=== PATIENT | male | born 1985 | race Caucasian/White ===

== ENCOUNTER 2022-11-21 17:39 | Emergency (ER) | payer OTHER, SELFPAY ==
--- NOTE | ~2022-11-21 | CT_ITS ---
EXAMINATION: CTA CHEST. CT BRAIN WITHOUT IV CONTRAST. CLINICAL INFORMATION: Seizure with trauma. Hypoxia. COMPARISON: None TECHNIQUE: 5 minutes thin axial and reformatted 3 mm thin sagittal coronal and 8 mm oblique images of chest were obtained following rapid IV 75 mL Omnipaque 350. Noncontrast 5 mm thin axial and reformatted 2 mm thin sagittal and coronal images of brain were obtained without contrast. DLP 1349. This CT examination was performed using dose optimization technique as appropriate, variously including the following: Automated exposure control Adjustment of MA and/or KV according to patient size(this includes techniques or standardized protocols for targeted exams where dose is matched to indication/reason for exam; extremities or head. Use of iterative reconstruction techniques. FINDINGS: Brain: There is no acute intra-axial, extra-axial bleed, masses or midline shift. There is no acute infarction in evolution. There is no edema. There is a hypodense 6 mm linear lesion subcutaneous tentorial left posterior fossa measuring -68 Hounsfield units likely lipoma. The lateral ventricles are symmetrical but enlarged. Bone windows reveal no calvarial abnormality. There is no scalp hematoma. Bilateral paranasal sinuses are well-aerated. CTA CHEST: There is good opacity preop tree and its branches without any intraluminal filling defect or narrowing. The thoracic aorta is of normal caliber. No aneurysm or dissection seen. NON -CTA CHEST: The lungs are well-expanded with bilateral lower lobe posterior basal and superior segment atelectasis. Rest of lungs are clear. There is no pleural effusion, thickening or calcification. The axilla and the chest wall is unremarkable. Imaging through the upper abdomen reveals unremarkable liver, spleen, pancreas, gallbladder and bilateral adrenal glands. Bone windows reveal a no aggressive lytic or sclerotic process. CT/CT head/brain wo IV con IMPRESSION: No acute intracranial process seen. 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 No evidence of PE. No evidence aortic dissection or aneurysm. Bilateral lower lobe atelectatic changes.
--- NOTE | ~2022-11-21 | XR_ITS ---
EXAMINATION: XR CHEST CLINICAL INFORMATION: Seizure COMPARISON: None TECHNIQUE: Frontal view of the chest was obtained. FINDINGS: Significantly limited exam secondary to patient positioning. The cardiomediastinal silhouette is accentuated secondary to significantly decreased lung volumes. There are hazy opacities in the right midlung. No pleural effusions. XR/XR chest 1V IMPRESSION: 1. Significantly limited exam secondary to patient positioning and diminished lung volumes. 2. Hazy opacities in the right midlung may be atelectasis.
--- NOTE | ~2022-11-21 | CT_ITS ---
EXAMINATION: CTA CHEST. CT BRAIN WITHOUT IV CONTRAST. CLINICAL INFORMATION: Seizure with trauma. Hypoxia. COMPARISON: None TECHNIQUE: 5 minutes thin axial and reformatted 3 mm thin sagittal coronal and 8 mm oblique images of chest were obtained following rapid IV 75 mL Omnipaque 350. Noncontrast 5 mm thin axial and reformatted 2 mm thin sagittal and coronal images of brain were obtained without contrast. DLP 1349. This CT examination was performed using dose optimization technique as appropriate, variously including the following: Automated exposure control Adjustment of MA and/or KV according to patient size(this includes techniques or standardized protocols for targeted exams where dose is matched to indication/reason for exam; extremities or head. Use of iterative reconstruction techniques. FINDINGS: Brain: There is no acute intra-axial, extra-axial bleed, masses or midline shift. There is no acute infarction in evolution. There is no edema. There is a hypodense 6 mm linear lesion subcutaneous tentorial left posterior fossa measuring -68 Hounsfield units likely lipoma. The lateral ventricles are symmetrical but enlarged. Bone windows reveal no calvarial abnormality. There is no scalp hematoma. Bilateral paranasal sinuses are well-aerated. CTA CHEST: There is good opacity preop tree and its branches without any intraluminal filling defect or narrowing. The thoracic aorta is of normal caliber. No aneurysm or dissection seen. NON -CTA CHEST: The lungs are well-expanded with bilateral lower lobe posterior basal and superior segment atelectasis. Rest of lungs are clear. There is no pleural effusion, thickening or calcification. The axilla and the chest wall is unremarkable. Imaging through the upper abdomen reveals unremarkable liver, spleen, pancreas, gallbladder and bilateral adrenal glands. Bone windows reveal a no aggressive lytic or sclerotic process. CT/CT angio chest PE protocol IMPRESSION: No acute intracranial process seen. 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 No evidence of PE. No evidence aortic dissection or aneurysm. Bilateral lower lobe atelectatic changes.
[2022-11-21 17:56] VITALS: PULSE 117; O2SAT 95
--- NOTE | 2022-11-21 18:07 | ED.GENADULT ---
HPI - General Adult General Chief complaint: Seizure Stated complaint: seizure Time Seen by Provider: 11/21/22 17:59 Source: RN notes reviewed Limitations: altered mental status History of Present Illness HPI narrative: Patient sent in from [facility] detox facility secondary to multiple seizures. No further history available at this time. For EMS he apparently had 2 more seizure-like episodes. He you was there for alcohol detox. And it is unknown if he has a history of alcohol abstinence seizures or other seizure disorder. He was uncooperative for EMS. Here continues to be uncooperative but unintelligible. Related Data Allergies Allergy/AdvReac Type Severity Reaction Status Date / Time No Known Allergies Allergy Verified 11/21/22 18:06 Review of Systems Review of Systems: Unable PMFSH Social History Social History Alcohol intake: current Alcohol intake frequency: 3 or more drinks per day Alcohol type: beer Smoked in Last 30 Days: Yes Use of substances other than those prescribed or required for medical reasons: No Advance Directives: No Advance Directives Information Provided: Yes Physical Exam ED Vital Signs: Vital Signs - 24 hr 11/21/22 18:38 Temperature 98.2 F Pulse Rate 108 H Respiratory Rate 18 Blood Pressure 116/63 Pulse Oximetry 80 L Oxygen Delivery Method Room Air BMI result Body Mass Index 32.0 Const Other: Patient is awake but does not speak intelligibly. He does not follow commands. He withdraws from pain and is able to localize pain. No obvious traumatic injury HENMT Other: Normocephalic atraumatic Eyes Other: Pupils equal round reactive to light approximately 6 mm. Resp Other: Clear and equal bilaterally. No wheezes rales or rhonchi. Oxygen saturation in the 90s Cardio Other: Regular rate and rhythm without murmurs rubs or gallops GI Other: Soft. Nondistended. Skin Other: Warm pink and dry without rash Neuro Other: Patient is unable to comply with neuro exam but is moving all 4 extremities apparently equally Extrem Other: No obvious extremity injuries Medications Administered Discontinued Medications Generic Name Dose Route Start Last Admin Trade Name Freq PRN Reason Stop Dose Admin Acetaminophen 650 mg 11/22/22 00:51 11/22/22 01:03 Acetaminophen 325 Mg Tablet PO 11/22/22 00:52 650 mg ONCE ONE Administration Sodium Chloride 3,300 mls @ 3,300 mls/hr 11/21/22 20:05 11/21/22 22:00 Ns 30 ml/kg infuse over 1 hr (3300 ml) 11/21/22 21:04 Infused IV Infusion .Q1H STA Insulin Glargine 20 unit 11/22/22 01:41 11/22/22 01:50 Insulin Glargine,Hum.Rec.Anlog 100 Unit/Ml 10 Ml Vial SUBCUT 11/22/22 01:42 20 unit ONCE ONE Administration Insulin Human Lispro 10 unit 11/22/22 01:41 11/22/22 01:49 Insulin Lispro 100 Unit/Ml 3 Ml Vial SUBCUT 11/22/22 01:42 10 unit ONCE ONE Administration Insulin Human Regular 5 unit 11/21/22 20:08 11/21/22 20:46 Insulin Regular, Human 100 Unit/Ml 3 Ml Vial IVPUSH 11/21/22 20:09 5 unit ONCE ONE Administration Iohexol 100 ml 11/21/22 21:25 11/21/22 21:26 Iohexol 350 Mg/Ml 100 Ml Infus..Btl IV 11/21/22 21:26 75 ml ONCE ONE Administration Lorazepam 2 mg 11/21/22 18:06 11/21/22 18:31 Lorazepam 2 Mg/Ml Vial IM 11/21/22 18:07 2 mg STAT STA Administration Lorazepam 2 mg 11/22/22 00:51 11/22/22 01:04 Lorazepam 1 Mg Tablet PO 11/22/22 00:52 2 mg ONCE ONE Administration Lorazepam 2 mg 11/22/22 06:35 11/22/22 06:45 Lorazepam 1 Mg Tablet PO 11/22/22 06:36 2 mg ONCE ONE Administration Lorazepam 2 mg 11/22/22 10:42 11/22/22 10:47 Lorazepam 1 Mg Tablet PO 11/22/22 10:43 2 mg ONCE ONE Administration Medical Decision Making Medical Decision Making MDM Narrative: Patient with altered mental status following apparent seizure-like activity while in alcohol detox. Likely is postictal secondary to alcohol abstinence seizures. He is hemodynamically stable. Rule out electrolyte imbalance. Rule out intracranial hemorrhage. He will need to be sedated as he is restless and likely will not stay still for the CT scan. 20:06. Patient has been maintaining sats in the mid 90s. Workup shows EKG without acute findings Chest x-ray with possible atelectasis although very difficult to interpret secondary to body habitus and posterior. Lab work is significant for significantly elevated glucose over 400. His lactic acid is over 4. This is likely secondary to seizing. I do not see any evidence of infection such as fever at this time to suggest that this is sepsis. Will treat with IV fluids and continue to look for other metabolic abnormalities. 22:23. Patient is now resting apparently comfortably. He does wake up to voice stimuli briefly. His repeat lactic acid is improved down to 2.5. CT scan of the head is unremarkable as is the CT of his abdomen and pelvis. He is maintaining his oxygen saturation in the mid 90s At this point will continue to observe. Lab Data 11/21/22 19:04 11/21/22 19:04 Labs: Lab Results 11/21/22 11/21/22 11/21/22 Range/Units 19:04 19:04 19:04 WBC 9.8 (4.8-10.8) X10*3/uL RBC 5.40 (4.60-5.80) X10*6/uL Hgb 14.4 (14.0-18.0) g/dl Hct 43.8 (42.0-52.0) % MCV 81.1 (80.0-98.0) fL MCH 26.7 L (27.0-33.0) pg MCHC 32.9 (31.0-36.0) g/dl RDW 14.0 (11.0-16.0) % Plt Count 278 (160-400) X10*3/uL MPV 10.3 (9.4-12.4) fL Immature Gran % (Auto) 0.1 (0.0-0.4) % Neut % (Auto) 51.7 (45-73) % Lymph % (Auto) 42.0 H (20-40) % [place] % (Auto) 5.4 (2-11) % Eos % (Auto) 0.2 (0-4) % Baso % (Auto) 0.6 (0-2) % Lymph # (Auto) 4.1 (1.2-4.9) X10*3/uL [place] # (Auto) 0.5 (0.1-1.2) X10*3/uL Eos # (Auto) 0.0 (0.0-0.4) X10*3/uL Baso # (Auto) 0.1 (0.0-0.2) X10*3/uL Abs Immat Gran (auto) 0.01 (0.00-0.03) X10*3/uL Absolute Neuts (auto) 5.0 (2.0-8.3) x10*3/uL Absolute Nucleated RBC 0.000 (0.0-0.012) X10*3/uL Nucleated RBC % (auto) 0.0 (0.0-0.2) /100WBC PT (10.0-13.1) SEC INR (0.9-1.1) Sodium 139 (135-145) mmol/L Potassium 4.0 (3.3-5.1) mmol/L Chloride 101 (96-108) mmol/L Carbon Dioxide 21 L (22-29) mmol/L Anion Gap 21 H (12-20) BUN 9 (9-16) mg/dL Creatinine 1.05 (0.5-1.4) mg/dL Estim Creat Clear Calc 127.6 Estimated GFR > 60 POC Glucose (60-115) mg/dL Random Glucose 481 H* (60-115) mg/dL Lactic Acid (0.5-2.0) mmol/L Lactic Acid F/U @ 2Hr (0.5-2.0) mmol/L Lactic Acid F/U @ 4Hr (0.5-2.0) mmol/L Calcium 8.8 8.8 (8.4-10.2) mg/dL Phosphorus 3.8 (2.7-4.5) mg/dL Magnesium (1.6-2.6) mg/dL Total Bilirubin 0.2 (0.0-1.0) mg/dL AST 32 (5-37) U/L ALT 33 (0-40) U/L Alkaline Phosphatase 167 H (39-117) U/L Ammonia (13-55) umol/L Troponin I High Sens (<3.5-35.0) ng/L Total Protein 7.0 (6.5-8.0) g/dL Albumin 4.0 (3.5-5.0) g/dL Lipase 23 (8-78) U/L Beta-Hydroxybutyrate/Acetoacetate TSH (0.32-4.0) uIU/mL Urine Opiates Screen (Not Detect) Urine Fentanyl Screen (Not Detect) Ur Barbiturates Screen (Not Detect) Ur Phencyclidine Scrn (Not Detect) Ur Amphetamines Screen (Not Detect) U Benzodiazepines Scrn (Not Detect) Urine Cocaine Screen (Not Detect) U Marijuana (THC) Screen (Not Detect) Ethyl Alcohol mg/dL Influenza Type A (PCR) (Negative) Influenza Type B (PCR) (Negative) RSV RNA Qual (PCR) (Negative) SARS-CoV-2 RNA (RT-PCR) (Negative) 11/21/22 11/21/22 11/21/22 Range/Units 19:04 19:04 19:04 WBC (4.8-10.8) X10*3/uL RBC (4.60-5.80) X10*6/uL Hgb (14.0-18.0) g/dl Hct (42.0-52.0) % MCV (80.0-98.0) fL MCH (27.0-33.0) pg MCHC (31.0-36.0) g/dl RDW (11.0-16.0) % Plt Count (160-400) X10*3/uL MPV (9.4-12.4) fL Immature Gran % (Auto) (0.0-0.4) % Neut % (Auto) (45-73) % Lymph % (Auto) (20-40) % [place] % (Auto) (2-11) % Eos % (Auto) (0-4) % Baso % (Auto) (0-2) % Lymph # (Auto) (1.2-4.9) X10*3/uL [place] # (Auto) (0.1-1.2) X10*3/uL Eos # (Auto) (0.0-0.4) X10*3/uL Baso # (Auto) (0.0-0.2) X10*3/uL Abs Immat Gran (auto) (0.00-0.03) X10*3/uL Absolute Neuts (auto) (2.0-8.3) x10*3/uL Absolute Nucleated RBC (0.0-0.012) X10*3/uL Nucleated RBC % (auto) (0.0-0.2) /100WBC PT 11.1 (10.0-13.1) SEC INR 1.0 (0.9-1.1) Sodium (135-145) mmol/L Potassium (3.3-5.1) mmol/L Chloride (96-108) mmol/L Carbon Dioxide (22-29) mmol/L Anion Gap (12-20) BUN (9-16) mg/dL Creatinine (0.5-1.4) mg/dL Estim Creat Clear Calc Estimated GFR POC Glucose (60-115) mg/dL Random Glucose (60-115) mg/dL Lactic Acid 4.3 H* (0.5-2.0) mmol/L Lactic Acid F/U @ 2Hr (0.5-2.0) mmol/L Lactic Acid F/U @ 4Hr (0.5-2.0) mmol/L Calcium (8.4-10.2) mg/dL Phosphorus (2.7-4.5) mg/dL Magnesium (1.6-2.6) mg/dL Total Bilirubin (0.0-1.0) mg/dL AST (5-37) U/L ALT (0-40) U/L Alkaline Phosphatase (39-117) U/L Ammonia (13-55) umol/L Troponin I High Sens < 3.5 (<3.5-35.0) ng/L Total Protein (6.5-8.0) g/dL Albumin (3.5-5.0) g/dL Lipase (8-78) U/L Beta-Hydroxybutyrate/Acetoacetate TSH (0.32-4.0) uIU/mL Urine Opiates Screen (Not Detect) Urine Fentanyl Screen (Not Detect) Ur Barbiturates Screen (Not Detect) Ur Phencyclidine Scrn (Not Detect) Ur Amphetamines Screen (Not Detect) U Benzodiazepines Scrn (Not Detect) Urine Cocaine Screen (Not Detect) U Marijuana (THC) Screen (Not Detect) Ethyl Alcohol mg/dL Influenza Type A (PCR) (Negative) Influenza Type B (PCR) (Negative) RSV RNA Qual (PCR) (Negative) SARS-CoV-2 RNA (RT-PCR) (Negative) 01/25/23 01/25/23 01/25/23 Range/Units 19:04 19:04 19:04 WBC (4.8-10.8) X10*3/uL RBC (4.60-5.80) X10*6/uL Hgb (14.0-18.0) g/dl Hct (42.0-52.0) % MCV (80.0-98.0) fL MCH (27.0-33.0) pg MCHC (31.0-36.0) g/dl RDW (11.0-16.0) % Plt Count (160-400) X10*3/uL MPV (9.4-12.4) fL Immature Gran % (Auto) (0.0-0.4) % Neut % (Auto) (45-73) % Lymph % (Auto) (20-40) % [place] % (Auto) (2-11) % Eos % (Auto) (0-4) % Baso % (Auto) (0-2) % Lymph # (Auto) (1.2-4.9) X10*3/uL [place] # (Auto) (0.1-1.2) X10*3/uL Eos # (Auto) (0.0-0.4) X10*3/uL Baso # (Auto) (0.0-0.2) X10*3/uL Abs Immat Gran (auto) (0.00-0.03) X10*3/uL Absolute Neuts (auto) (2.0-8.3) x10*3/uL Absolute Nucleated RBC (0.0-0.012) X10*3/uL Nucleated RBC % (auto) (0.0-0.2) /100WBC PT (10.0-13.1) SEC INR (0.9-1.1) Sodium (135-145) mmol/L Potassium (3.3-5.1) mmol/L Chloride (96-108) mmol/L Carbon Dioxide (22-29) mmol/L Anion Gap (12-20) BUN (9-16) mg/dL Creatinine (0.5-1.4) mg/dL Estim Creat Clear Calc Estimated GFR POC Glucose (60-115) mg/dL Random Glucose (60-115) mg/dL Lactic Acid (0.5-2.0) mmol/L Lactic Acid F/U @ 2Hr (0.5-2.0) mmol/L Lactic Acid F/U @ 4Hr (0.5-2.0) mmol/L Calcium (8.4-10.2) mg/dL Phosphorus (2.7-4.5) mg/dL Magnesium (1.6-2.6) mg/dL Total Bilirubin (0.0-1.0) mg/dL AST (5-37) U/L ALT (0-40) U/L Alkaline Phosphatase (39-117) U/L Ammonia (13-55) umol/L Troponin I High Sens (<3.5-35.0) ng/L Total Protein (6.5-8.0) g/dL Albumin (3.5-5.0) g/dL Lipase (8-78) U/L Beta-Hydroxybutyrate/Acetoacetate Cancelled 0.31 H TSH (0.32-4.0) uIU/mL Urine Opiates Screen (Not Detect) Urine Fentanyl Screen (Not Detect) Ur Barbiturates Screen (Not Detect) Ur Phencyclidine Scrn (Not Detect) Ur Amphetamines Screen (Not Detect) U Benzodiazepines Scrn (Not Detect) Urine Cocaine Screen (Not Detect) U Marijuana (THC) Screen (Not Detect) Ethyl Alcohol 320 H* mg/dL Influenza Type A (PCR) NEGATIVE (Negative) Influenza Type B (PCR) NEGATIVE (Negative) RSV RNA Qual (PCR) NEGATIVE (Negative) SARS-CoV-2 RNA (RT-PCR) NEGATIVE (Negative) 11/21/22 11/21/22 11/21/22 Range/Units 19:05 19:05 21:54 WBC (4.8-10.8) X10*3/uL RBC (4.60-5.80) X10*6/uL Hgb (14.0-18.0) g/dl Hct (42.0-52.0) % MCV (80.0-98.0) fL MCH (27.0-33.0) pg MCHC (31.0-36.0) g/dl RDW (11.0-16.0) % Plt Count (160-400) X10*3/uL MPV (9.4-12.4) fL Immature Gran % (Auto) (0.0-0.4) % Neut % (Auto) (45-73) % Lymph % (Auto) (20-40) % [place] % (Auto) (2-11) % Eos % (Auto) (0-4) % Baso % (Auto) (0-2) % Lymph # (Auto) (1.2-4.9) X10*3/uL [place] # (Auto) (0.1-1.2) X10*3/uL Eos # (Auto) (0.0-0.4) X10*3/uL Baso # (Auto) (0.0-0.2) X10*3/uL Abs Immat Gran (auto) (0.00-0.03) X10*3/uL Absolute Neuts (auto) (2.0-8.3) x10*3/uL Absolute Nucleated RBC (0.0-0.012) X10*3/uL Nucleated RBC % (auto) (0.0-0.2) /100WBC PT (10.0-13.1) SEC INR (0.9-1.1) Sodium (135-145) mmol/L Potassium (3.3-5.1) mmol/L Chloride (96-108) mmol/L Carbon Dioxide (22-29) mmol/L Anion Gap (12-20) BUN (9-16) mg/dL Creatinine (0.5-1.4) mg/dL Estim Creat Clear Calc Estimated GFR POC Glucose (60-115) mg/dL Random Glucose (60-115) mg/dL Lactic Acid (0.5-2.0) mmol/L Lactic Acid F/U @ 2Hr 2.5 H* (0.5-2.0) mmol/L Lactic Acid F/U @ 4Hr (0.5-2.0) mmol/L Calcium (8.4-10.2) mg/dL Phosphorus (2.7-4.5) mg/dL Magnesium 2.0 (1.6-2.6) mg/dL Total Bilirubin (0.0-1.0) mg/dL AST (5-37) U/L ALT (0-40) U/L Alkaline Phosphatase (39-117) U/L Ammonia 51 (13-55) umol/L Troponin I High Sens (<3.5-35.0) ng/L Total Protein (6.5-8.0) g/dL Albumin (3.5-5.0) g/dL Lipase (8-78) U/L Beta-Hydroxybutyrate/Acetoacetate TSH 0.34 (0.32-4.0) uIU/mL Urine Opiates Screen (Not Detect) Urine Fentanyl Screen (Not Detect) Ur Barbiturates Screen (Not Detect) Ur Phencyclidine Scrn (Not Detect) Ur Amphetamines Screen (Not Detect) U Benzodiazepines Scrn (Not Detect) Urine Cocaine Screen (Not Detect) U Marijuana (THC) Screen (Not Detect) Ethyl Alcohol mg/dL Influenza Type A (PCR) (Negative) Influenza Type B (PCR) (Negative) RSV RNA Qual (PCR) (Negative) SARS-CoV-2 RNA (RT-PCR) (Negative) 11/21/22 11/22/22 11/22/22 Range/Units 22:36 00:00 00:00 WBC (4.8-10.8) X10*3/uL RBC (4.60-5.80) X10*6/uL Hgb (14.0-18.0) g/dl Hct (42.0-52.0) % MCV (80.0-98.0) fL MCH (27.0-33.0) pg MCHC (31.0-36.0) g/dl RDW (11.0-16.0) % Plt Count (160-400) X10*3/uL MPV (9.4-12.4) fL Immature Gran % (Auto) (0.0-0.4) % Neut % (Auto) (45-73) % Lymph % (Auto) (20-40) % [place] % (Auto) (2-11) % Eos % (Auto) (0-4) % Baso % (Auto) (0-2) % Lymph # (Auto) (1.2-4.9) X10*3/uL [place] # (Auto) (0.1-1.2) X10*3/uL Eos # (Auto) (0.0-0.4) X10*3/uL Baso # (Auto) (0.0-0.2) X10*3/uL Abs Immat Gran (auto) (0.00-0.03) X10*3/uL Absolute Neuts (auto) (2.0-8.3) x10*3/uL Absolute Nucleated RBC (0.0-0.012) X10*3/uL Nucleated RBC % (auto) (0.0-0.2) /100WBC PT (10.0-13.1) SEC INR (0.9-1.1) Sodium (135-145) mmol/L Potassium (3.3-5.1) mmol/L Chloride (96-108) mmol/L Carbon Dioxide (22-29) mmol/L Anion Gap (12-20) BUN (9-16) mg/dL Creatinine (0.5-1.4) mg/dL Estim Creat Clear Calc Estimated GFR POC Glucose 290 H (60-115) mg/dL Random Glucose (60-115) mg/dL Lactic Acid (0.5-2.0) mmol/L Lactic Acid F/U @ 2Hr (0.5-2.0) mmol/L Lactic Acid F/U @ 4Hr 1.8 (0.5-2.0) mmol/L Calcium (8.4-10.2) mg/dL Phosphorus (2.7-4.5) mg/dL Magnesium (1.6-2.6) mg/dL Total Bilirubin (0.0-1.0) mg/dL AST (5-37) U/L ALT (0-40) U/L Alkaline Phosphatase (39-117) U/L Ammonia (13-55) umol/L Troponin I High Sens (<3.5-35.0) ng/L Total Protein (6.5-8.0) g/dL Albumin (3.5-5.0) g/dL Lipase (8-78) U/L Beta-Hydroxybutyrate/Acetoacetate TSH (0.32-4.0) uIU/mL Urine Opiates Screen Not Detected (Not Detect) Urine Fentanyl Screen Not Detected (Not Detect) Ur Barbiturates Screen Not Detected (Not Detect) Ur Phencyclidine Scrn Not Detected (Not Detect) Ur Amphetamines Screen Not Detected (Not Detect) U Benzodiazepines Scrn POSITIVE H (Not Detect) Urine Cocaine Screen Not Detected (Not Detect) U Marijuana (THC) Screen Not Detected (Not Detect) Ethyl Alcohol mg/dL Influenza Type A (PCR) (Negative) Influenza Type B (PCR) (Negative) RSV RNA Qual (PCR) (Negative) SARS-CoV-2 RNA (RT-PCR) (Negative) 11/22/22 11/22/22 Range/Units 01:34 06:34 WBC (4.8-10.8) X10*3/uL RBC (4.60-5.80) X10*6/uL Hgb (14.0-18.0) g/dl Hct (42.0-52.0) % MCV (80.0-98.0) fL MCH (27.0-33.0) pg MCHC (31.0-36.0) g/dl RDW (11.0-16.0) % Plt Count (160-400) X10*3/uL MPV (9.4-12.4) fL Immature Gran % (Auto) (0.0-0.4) % Neut % (Auto) (45-73) % Lymph % (Auto) (20-40) % [place] % (Auto) (2-11) % Eos % (Auto) (0-4) % Baso % (Auto) (0-2) % Lymph # (Auto) (1.2-4.9) X10*3/uL [place] # (Auto) (0.1-1.2) X10*3/uL Eos # (Auto) (0.0-0.4) X10*3/uL Baso # (Auto) (0.0-0.2) X10*3/uL Abs Immat Gran (auto) (0.00-0.03) X10*3/uL Absolute Neuts (auto) (2.0-8.3) x10*3/uL Absolute Nucleated RBC (0.0-0.012) X10*3/uL Nucleated RBC % (auto) (0.0-0.2) /100WBC PT (10.0-13.1) SEC INR (0.9-1.1) Sodium (135-145) mmol/L Potassium (3.3-5.1) mmol/L Chloride (96-108) mmol/L Carbon Dioxide (22-29) mmol/L Anion Gap (12-20) BUN (9-16) mg/dL Creatinine (0.5-1.4) mg/dL Estim Creat Clear Calc Estimated GFR POC Glucose 348 H 189 H (60-115) mg/dL Random Glucose (60-115) mg/dL Lactic Acid (0.5-2.0) mmol/L Lactic Acid F/U @ 2Hr (0.5-2.0) mmol/L Lactic Acid F/U @ 4Hr (0.5-2.0) mmol/L Calcium (8.4-10.2) mg/dL Phosphorus (2.7-4.5) mg/dL Magnesium (1.6-2.6) mg/dL Total Bilirubin (0.0-1.0) mg/dL AST (5-37) U/L ALT (0-40) U/L Alkaline Phosphatase (39-117) U/L Ammonia (13-55) umol/L Troponin I High Sens (<3.5-35.0) ng/L Total Protein (6.5-8.0) g/dL Albumin (3.5-5.0) g/dL Lipase (8-78) U/L Beta-Hydroxybutyrate/Acetoacetate TSH (0.32-4.0) uIU/mL Urine Opiates Screen (Not Detect) Urine Fentanyl Screen (Not Detect) Ur Barbiturates Screen (Not Detect) Ur Phencyclidine Scrn (Not Detect) Ur Amphetamines Screen (Not Detect) U Benzodiazepines Scrn (Not Detect) Urine Cocaine Screen (Not Detect) U Marijuana (THC) Screen (Not Detect) Ethyl Alcohol mg/dL Influenza Type A (PCR) (Negative) Influenza Type B (PCR) (Negative) RSV RNA Qual (PCR) (Negative) SARS-CoV-2 RNA (RT-PCR) (Negative) Discharge Plan Discharge Clinical Impression: Alcohol withdrawal seizure Patient Disposition: Xfer LTC Transfer Details: patient with alcohol withdrawal seizure history of same in past medically cleared, advised to continue monitoring and medication for alcohol withdrawal Interventions: ED Discharge Assessment Last Done: 11/22/22 11:52 Discharge Date/Time: 11/22/22 11:53
--- NOTE | 2022-11-21 18:27 | ECG_ITS ---
Test Reason : SIEZURE Blood Pressure : / mmHG Vent. Rate : 111 BPM Atrial Rate : 111 BPM P-R Int : 152 ms QRS Dur : 094 ms QT Int : 338 ms P-R-T Axes : 041 -08 014 degrees QTc Int : 459 ms Sinus tachycardia Minimal voltage criteria for LVH, may be normal variant ( R in aVL ) Septal infarct , age undetermined Abnormal ECG No previous ECGs available Referred By: Kelvin Gaspar Electronically Signed By:JORGITO FAGAN
[2022-11-21] MEDS: LORazepam 2 MG/ML VIAL IM (18:31)
[2022-11-21 18:38] VITALS: BP 116/63; PULSE 108; RESP 18; TEMP 36.8; O2SAT 80; BMI 32.0
[2022-11-21 19:04] VITALS: O2SAT 94
--- NOTE | 2022-11-21 19:09 | PC.NURSE ---
This senior grant writer assumed care of this PT at 1900. PT sleeping postictal. Sat O2 94% on oxymask. Seizure precautions maintained. PT arousable to touch.
[2022-11-21 19:12] LABS: MANUAL DIFF FLAG NO
[2022-11-21 19:14] LABS: Basophils Absolute Auto 0.1 X10*3/uL (0.0-0.2); Basophils Percent Auto 0.6 % (0-2); Eosinophils Percent Auto 0.2 % (0-4); Hematocrit 43.8 % (42.0-52.0); Hemoglobin 14.4 g/dl (14.0-18.0); Imm Gran Abs Auto 0.01 X10*3/uL (0.00-0.03); Imm Gran Pct Auto 0.1 % (0.0-0.4); Lymphocytes Absolute Auto 4.1 X10*3/uL (1.2-4.9); Mean Corpuscular HGB Conc 32.9 g/dl (31.0-36.0); Mean Corpuscular Hemoglobin 26.7 pg (27.0-33.0); Mean Corpuscular Volume 81.1 fL (80.0-98.0); Mean Platelet Volume 10.3 fL (9.4-12.4); Monocytes Absolute Auto 0.5 X10*3/uL (0.1-1.2); Monocytes Percent Auto 5.4 % (2-11); Neutrophils Percent Auto 51.7 % (45-73); Platelet Count 278 X10*3/uL (160-400); White Blood Count 9.8 X10*3/uL (4.8-10.8)
[2022-11-21 19:24] LABS: Ammonia 51 umol/L (13-55)
[2022-11-21 19:29] LABS: Prothrombin Time 11.1 SEC (10.0-13.1)
[2022-11-21 19:30] LABS: Calcium 8.8 mg/dL (8.4-10.2); Lipase 23 U/L (8-78)
[2022-11-21 19:36] LABS: Lactic Acid 4.3 mmol/L (0.5-2.0)
[2022-11-21 19:37] LABS: Alanine Aminotransferase 33 U/L (0-40); Alkaline Phosphatase 167 U/L (39-117); Anion Gap 21 (12-20); Aspartate Amino Transferase 32 U/L (5-37); Bilirubin Total 0.2 mg/dL (0.0-1.0); Blood Urea Nitrogen 9 mg/dL (9-16); Calcium 8.8 mg/dL (8.4-10.2); Carbon Dioxide 21 mmol/L (22-29); Chloride 101 mmol/L (96-108); Creatinine Clr Calc Pharmacy 127.6; Estimated Glomerular Filt Rate > 60; Glucose Random 481 mg/dL (60-115); Phosphorus 3.8 mg/dL (2.7-4.5); Sodium 139 mmol/L (135-145)
[2022-11-21 19:53] LABS: Influenza A PCR NEGATIVE (Negative); Influenza B PCR NEGATIVE (Negative); Resp Syncy Virus RNA Qual PCR NEGATIVE (Negative); SARS COV2 PCR INHOUSE NEGATIVE (Negative)
[2022-11-21 19:54] LABS: TSH reflex Free T4 0.34 uIU/mL (0.32-4.0)
[2022-11-21 19:57] LABS: Troponin-I High Sensitivity < 3.5 ng/L (<3.5-35.0)
[2022-11-21 20:24] LABS: Ethanol 320 mg/dL
[2022-11-21] MEDS: Insulin Regular, Human 100 UNIT/ML 3 ML VIAL IVPUSH (20:46)
[2022-11-21 21:10] LABS: Reflex Lactate? Lactic Acid Added
[2022-11-21] MEDS: iohexoL 350 MG/ML 100 ML INFUS..BTL IV (21:26)
[2022-11-21 22:21] LABS: ~Lactic Acid-LAB USE ONLY 2.5 mmol/L (0.5-2.0)
[2022-11-21 22:40] LABS: Glucose, Whole Blood 290 mg/dL (60-115)
[2022-11-21 23:48] VITALS: BP 124/73; PULSE 118; RESP 14; TEMP 36.5; O2SAT 99
[2022-11-21 23:56] LABS: Reflex Lactate? 2 Y
[2022-11-22 00:21] LABS: Amphetamine Screen Urine Not Detected (Not Detect); Barbiturates, Urine Not Detected (Not Detect); Benzodiazepines Screen Urine POSITIVE (Not Detect); Cannabinoid Screen Urine Not Detected (Not Detect); Cocaine Screen Urine Not Detected (Not Detect); Fentanyl, urine Not Detected (Not Detect); Opiate Screen Urine Not Detected (Not Detect); Phencyclidine Screen Urine Not Detected (Not Detect); ~Lactic Acid-LAB USE ONLY 1.8 mmol/L (0.5-2.0)
[2022-11-22] MEDS: Acetaminophen 325 MG TABLET 650 MG PO (01:03)
[2022-11-22] MEDS: LORazepam 1 MG TABLET 2 MG PO ×3 (01:04→10:47)
--- NOTE | 2022-11-22 01:17 | PC.NURSE ---
PT more awake requesting pain medication for a 10/10 headache and lower ABD pain non radiating. Provider notified. Meds given as documented. Called [facility] for bed update, person stated we don't do intakes at night call back in the after 8am . Provider notified and PT updated. PT asking for sleep meds, provider notified and stated we just gave Ativan . No new orders.
[2022-11-22 01:27] VITALS: BP 115/76; PULSE 88; RESP 20; O2SAT 93
[2022-11-22 01:40] LABS: Glucose, Whole Blood 348 mg/dL (60-115)
--- NOTE | 2022-11-22 01:43 | PC.NURSE ---
Pt reports increase thirst. POC 348. Provider notified. New orders, meds given as documented.
[2022-11-22] MEDS: Insulin Lispro 100 UNIT/ML 3 ML VIAL 10 UNIT SUBCUT (01:49)
[2022-11-22] MEDS: Insulin Glargine,Hum.rec.anlog 100 UNIT/ML 10 ML VIAL 20 UNIT SUBCUT (01:50)
--- NOTE | 2022-11-22 03:20 | PC.NURSE ---
PT on room air, sleeping O2 sat 80's. Provider notified. Respiratory therapy notified. Placed on cpap.
[2022-11-22 04:00] VITALS: BP 116/79; PULSE 91; RESP 19; TEMP 36.6; O2SAT 94
[2022-11-22 04:48] VITALS: PULSE 97; RESP 21; O2SAT 92
[2022-11-22 05:55] VITALS: BP 134/85; PULSE 108; RESP 19; TEMP 36.8; O2SAT 97
[2022-11-22 06:38] LABS: Glucose, Whole Blood 189 mg/dL (60-115)
--- NOTE | 2022-11-22 06:46 | PC.NURSE ---
PT states I feel like im withdrawing , PT reports headache, hand tremors felt. Provider notified. New order given as documented. Will CTM.
[2022-11-22 07:02] VITALS: BP 135/94; PULSE 89; RESP 11; O2SAT 95
--- NOTE | 2022-11-22 08:43 | PC.NURSE ---
patient with alcohol withdrawal seizure history of same in past medically cleared, advised to continue monitoring and medication for alcohol withdrawal
[2022-11-22 09:55] VITALS: BP 133/97; PULSE 92; RESP 12; O2SAT 97
[2022-11-29 19:09] LABS: Beta-Hydroxybutyrate 0.31 mmol/L
== END 2022-11-22 11:53 ==
PROVIDERS: Emergency Provider Emergency Medicine
DX: G40.89 Other seizures (principal); F10.239 Alcohol dependence with withdrawal, unspecified; T51.0X1A Toxic effect of ethanol, accidental (unintentional), initial encounter; F10.220 Alcohol dependence with intoxication, uncomplicated; Y90.8 Blood alcohol level of 240 mg/100 ml or more; Z20.822 Contact with and (suspected) exposure to COVID-19; Z20.828 Contact with and (suspected) exposure to other viral communicable diseases; Z79.899 Other long term (current) drug therapy
CPT/HCPCS: 0241U; 36415; 70450; 71045; 71275; 80053; 80307; 82010; 82077; 82140; 82310; 82947; 83605; 83690; 83735; 84100; 84443; 84484; 85025; 85610; 87040; 93005; 96361; 96372; 96374; 99285; J2060; Q9967

== ENCOUNTER 2024-07-02 19:56 | Inpatient (IN) | payer OTHER, SELFPAY ==
[2024-07-02 20:54] VITALS: BMI 35.0
[2024-07-02 22:00] VITALS: BP 136/88; PULSE 102; RESP 18; TEMP 36.7; O2SAT 98
[2024-07-02] MEDS: OLANZapine 5 MG TABLET PO (22:09)
[2024-07-02] MEDS: hydrOXYzine HCL 25 MG TABLET PO (22:09)
[2024-07-02] MEDS: traZODone HCL 50 MG TABLET PO (22:10)
[2024-07-02] MEDS: diazePAM 5 MG TABLET PO (22:10)
[2024-07-02] MEDS: Thiamine HCL 100 MG TABLET PO (22:10)
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
[2024-07-03 06:39] VITALS: BP 133/92; PULSE 105; RESP 18; TEMP 36.6; O2SAT 98
[2024-07-03] MEDS: diazePAM 5 MG TABLET PO (06:41)
[2024-07-03 08:00] VITALS: BP 133/88; PULSE 87; RESP 16; TEMP 36.7; O2SAT 98
[2024-07-03 08:00] LABS: Estimated Average Glucose 315 mg/dL; Hemoglobin A1c % 12.6 % (<6.0)
[2024-07-03] MEDS: hydrOXYzine HCL 25 MG TABLET PO (08:18)
[2024-07-03] MEDS: diazePAM 5 MG TABLET 10 MG PO ×2 (08:19→22:04)
[2024-07-03 08:53] LABS: Alanine Aminotransferase 65 U/L (0-40); Albumin Level 4.1 g/dL (3.5-5.0); Alkaline Phosphatase 122 U/L (39-117); Anion Gap 13 (12-20); Aspartate Amino Transferase 35 U/L (5-37); Bilirubin Total 0.3 mg/dL (0.0-1.0); Blood Urea Nitrogen 8 mg/dL (9-16); Calcium 9.6 mg/dL (8.4-10.2); Carbon Dioxide 24 mmol/L (22-29); Chloride 101 mmol/L (96-108); Cholesterol 210 mg/dL (<200); Creatinine Clr Calc Pharmacy 154.9; Estimated Glomerular Filt Rate > 60; Glucose Fasting 350 mg/dL (60-99); HDL Cholesterol 46 mg/dL (>40); LDL Cholesterol Calculated 136 mg/dL (<100); Potassium 4.4 mmol/L (3.3-5.1); Sodium 134 mmol/L (135-145); Total Protein 7.4 g/dL (6.5-8.0); Triglycerides 141 mg/dL (<150)
[2024-07-03 09:06] LABS: Folate 12.4 ng/mL (> or = 4.0); Vitamin B12 777 pg/mL (200-900)
[2024-07-03] MEDS: Insulin Lispro 100 UNIT/ML 3 ML VIAL SUBCUT ×4 (09:48→22:07)
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
[2024-07-03] MEDS: Amoxicillin 500 MG CAPSULE PO ×2 (12:06→18:00)
[2024-07-03] MEDS: Gabapentin 600 MG TABLET PO ×3 (12:06→22:03)
[2024-07-03] MEDS: QUEtiapine Fumarate 200 MG TABLET PO (12:06)
[2024-07-03] MEDS: FLUoxetine HCl 20 MG CAPSULE 60 MG PO (12:07)
[2024-07-03] MEDS: Famotidine 20 MG TABLET PO ×2 (12:07→22:04)
[2024-07-03] MEDS: Thiamine HCL 100 MG TABLET PO (12:07)
[2024-07-03] MEDS: ARIPiprazole 10 MG TABLET PO (12:08)
[2024-07-03 12:09] VITALS: BP 128/84
[2024-07-03] MEDS: cloNIDine HCL 0.2 MG TABLET PO ×2 (12:09→22:03)
[2024-07-03] MEDS: Nicotine 21 MG PATCH.TD24 TRANSDERMA (12:17)
[2024-07-03 12:40] LABS: Glucose, Whole Blood 212 mg/dL (60-115)
[2024-07-03] MEDS: Omeprazole 20 MG CAPSULE.DR PO (15:53)
[2024-07-03] MEDS: metFORMIN HCl ER 500 MG TAB.ER.24H 1000 MG PO (15:53)
[2024-07-03] MEDS: Acamprosate Calcium 333 MG TABLET.DR 666 MG PO ×2 (15:53→22:03)
[2024-07-03 17:18] LABS: Glucose, Whole Blood 416 mg/dL (60-115)
--- NOTE | 2024-07-03 17:31 | HO.PM.IMCN ---
History of Present Illness Data of Consult Service Date: 07/03/24 Primary Care Provider: Unknown Physician HPI Reason for consult: Admission H&P Pt is a 40-year-old male with a PMH significant for?insulin-dependent type 2 diabetes, seizure disorder, alcohol use disorder with history of withdrawal with seizures, and GERD who is admitted to [facility] psychiatry unit for increasing depression and SI. Patient was initially brought into [facility] for seizure-like activity due to either medication noncompliance or alcohol withdrawal. EMS witnessed 2 seizures, and patient was postictal upon arrival to the ED.. Medical consult for admission H&P. ?Patient reports that he feels ?good and ?relaxed? at time of interview and exam. States last drink was on June 28, but denies any significant amount of drinking or even daily drinking. Denies auditory or visual hallucinations. No increase in anxiety. Denies headache, nausea, vomiting. No tactile disturbances. Denies tremors. Patient has no acute medical complaints. Denies fever, chills, abdominal pain. No chest pain/pressure, palpitations. Denies shortness of breath or difficulty breathing. Review of Systems Review of Systems: Patient reports feeling ?relaxed? Denies any acute medical complaints at this time [facility] Medical History Recurrent major depression PTSD (post-traumatic stress disorder) Alcohol use disorder, severe, dependence Diabetes mellitus, type 2 Social History Household Members: Friend(s) Housing: House Do you presently have visiting nurse or other home services: No Alcohol intake: current Alcohol intake frequency: 3 or more drinks per day Alcohol type: beer Patient Tobacco Use Status: Current everyday Tobacco user Smoked in Last 30 Days: Yes e-Cigarette/Vaping Use: Currently Using Frequency of e-Cigarette/Vaping Use: daily Patient Interested in Nicotine Replacement: Yes Patient Given Instructions on How to Stop Smoking: Yes Date Education Initiated: 07/02/24 Second Hand Smoke Exposure: No Use of substances other than those prescribed or required for medical reasons: No Currently Displaying Signs/Symptoms of Drug Intoxication Withdrawal: No Have you been hit, kicked, punched, or otherwise hurt by someone within the past year? If so, by whom?: No Do you feel safe in your current relationship?: No Current Relationship Is there a partner from a previous relationship who is making you feel unsafe now?: No Are you made to feel afraid or neglected: No Advance Directives: No Advance Directives Information Provided: Yes Advance Directives on File: No Do you have thoughts of harming others: None Do you have a plan to hurt others: No Plan Recently lost weight without trying: No How much weight loss: Not applicable Eating poorly because of decreased appetite: No Nutrition screen score: 0 Nutrition Risks: No Nutritional Risk Poor oral hygiene: No Meds Allergies Allergy/AdvReac Type Severity Reaction Status Date / Time No Known Allergies Allergy Verified 11/21/22 18:06 Active Medications: Current Medications Acamprosate (Acamprosate Calcium 333 Mg Tablet.Dr) 666 mg PO TID [facility] Last Admin: 07/03/24 15:53 Dose: 666 mg Acetaminophen (Acetaminophen 325 Mg Tablet) 650 mg PO Q6H PRN PRN Reason: Headache/Pain Mild Scale (1-3) Al Hydroxide/Mg Hydroxide (Magnesium Hydrox/Alum Hydrox 30 Ml Oral.Susp) 30 ml PO Q6H PRN PRN Reason: Heartburn/Nausea Amoxicillin (Amoxicillin 500 Mg Capsule) 500 mg PO Q8H [facility] Stop: 07/10/24 09:00 Last Admin: 07/03/24 12:06 Dose: 500 mg Aripiprazole (Aripiprazole 10 Mg Tablet) 10 mg PO DAILY [facility] Last Admin: 07/03/24 12:08 Dose: 10 mg Clonidine HCl (Clonidine Hcl 0.2 Mg Tablet) 0.2 mg PO BID [facility]; Protocol Last Admin: 07/03/24 12:09 Dose: 0.2 mg Diazepam (Diazepam 5 Mg Tablet) 5 mg PO Q4H PRN PRN Reason: ciwa 7-12 Last Admin: 07/03/24 06:41 Dose: 5 mg Diazepam (Diazepam 5 Mg Tablet) 10 mg PO Q4H PRN PRN Reason: ciwa 13-17 Last Admin: 07/03/24 08:19 Dose: 10 mg Doxepin HCl (Doxepin Hcl 25 Mg Capsule) 75 mg PO BEDTIME [facility] Famotidine (Famotidine 20 Mg Tablet) 20 mg PO BID [facility] Last Admin: 07/03/24 12:07 Dose: 20 mg Fluoxetine HCl (Fluoxetine Hcl 20 Mg Capsule) 60 mg PO DAILY [facility] Last Admin: 07/03/24 12:07 Dose: 60 mg Gabapentin (Gabapentin 600 Mg Tablet) 600 mg PO TID [facility] Last Admin: 07/03/24 15:53 Dose: 600 mg Glucose (Glucose Gel 15 Gm Gel..Gram.) 15 gm PO Q15M PRN; Protocol PRN Reason: per Hypoglycemia Standing Ord. Hydroxyzine HCl (Hydroxyzine Hcl 25 Mg Tablet) 25 mg PO Q6H PRN PRN Reason: Anxiety Last Admin: 07/03/24 08:18 Dose: 25 mg Ibuprofen (Ibuprofen 800 Mg Tablet) 800 mg PO TID PRN PRN Reason: headache Insulin Human Lispro (Insulin Lispro 100 Unit/Ml 3 Ml Vial) 0 unit SUBCUT QIDACHS [facility]; Protocol Last Admin: 07/03/24 12:50 Dose: 4 unit Levetiracetam (Levetiracetam 500 Mg Tablet) 500 mg PO BID [facility] Magnesium Hydroxide (Milk Of Magnesia 30 Ml Oral.Susp) 30 ml PO DAILY PRN PRN Reason: Constipation Melatonin (Melatonin 3 Mg Tablet) 3 mg PO BEDTIME [facility] Metformin HCl (Metformin Hcl Er 500 Mg Tab.Er.24h) 1,000 mg PO BIDWM [facility] Last Admin: 07/03/24 15:53 Dose: 1,000 mg Nicotine (Nicotine 21 Mg Patch.Td24) 21 mg TRANSDERMA DAILY [facility] Last Admin: 07/03/24 12:17 Dose: 21 mg Nicotine Polacrilex (Nicotine Polacrilex 2 Mg Gum) 2 mg BUCCAL Q2H PRN PRN Reason: Nicotine Cravings Olanzapine (Olanzapine 5 Mg Tablet) 5 mg PO Q4H PRN PRN Reason: agitation Last Admin: 07/02/24 22:09 Dose: 5 mg Omeprazole (Omeprazole 20 Mg Capsule.Dr) 20 mg PO BID@0630,1630 [facility] Last Admin: 07/03/24 15:53 Dose: 20 mg Quetiapine Fumarate (Quetiapine Fumarate 200 Mg Tablet) 200 mg PO DAILY [facility] Last Admin: 07/03/24 12:06 Dose: 200 mg Quetiapine Fumarate (Quetiapine Fumarate 400 Mg Tablet) 400 mg PO BEDTIME [facility] Thiamine HCl (Thiamine Hcl 100 Mg Tablet) 100 mg PO DAILY [facility] Last Admin: 07/03/24 12:07 Dose: 100 mg Trazodone HCl (Trazodone Hcl 100 Mg Tablet) 200 mg PO BEDTIME PRN PRN Reason: insomnia Zolpidem Tartrate (Zolpidem Tartrate 5 Mg Tablet) 5 mg PO BEDTIME [facility] Home Medications ?Medication ?Instructions ?Recorded ?Confirmed ?Last Taken ?Type acamprosate 333 mg tablet,delayed 666 mg PO TID 07/02/24 07/02/24 Unknown History release acetaminophen 325 mg tablet 650 mg PO PRN Pain (Scale Score 07/02/24 Unknown History 1-3) amoxicillin 500 mg capsule 500 mg PO Q8H 07/02/24 07/03/24 Unknown History aripiprazole 10 mg tablet 10 mg PO DAILY 07/02/24 07/02/24 Unknown History clonidine HCl 0.2 mg tablet 0.2 mg PO BID 07/02/24 07/02/24 Unknown History doxepin 25 mg capsule 125 mg PO BEDTIME insomnia 07/02/24 07/02/24 Unknown History famotidine 20 mg tablet 20 mg PO BID 07/02/24 07/02/24 Unknown History fluoxetine 20 mg capsule 60 mg PO DAILY depressive disorder 07/02/24 07/02/24 Unknown History gabapentin 600 mg tablet 600 mg PO TID 07/02/24 07/02/24 Unknown History ibuprofen 800 mg tablet 800 mg PO TID 07/02/24 07/02/24 Unknown History insulin glargine 100 unit/mL unit subcut 07/02/24 Unknown History subcutaneous solution (Lantus U-100 Insulin) insulin lispro 100 unit/mL subcut 07/02/24 Unknown History subcutaneous pen levetiracetam 500 mg tablet 500 mg PO BID PRN seizures 07/02/24 07/02/24 Unknown History melatonin 3 mg tablet 3 mg PO BEDTIME insomnia 07/02/24 07/02/24 Unknown History metformin 1,000 mg tablet 1,000 mg PO BID 07/02/24 07/02/24 Unknown History omeprazole 20 mg capsule,delayed 20 mg PO BID 07/02/24 07/02/24 Unknown History release quetiapine 200 mg tablet 200 mg PO DAILY 07/02/24 07/02/24 Unknown History quetiapine 400 mg tablet 400 mg PO BEDTIME 07/02/24 07/02/24 Unknown History thiamine HCl (vitamin B1) 100 mg 100 mg PO DAILY 07/02/24 07/02/24 Unknown History tablet (Vitamin B-1) trazodone 100 mg tablet 200 mg PO BEDTIME PRN insomnia 07/02/24 07/02/24 Unknown History zolpidem 5 mg tablet 5 mg PO BEDTIME 07/02/24 07/02/24 Unknown History Physical Exam Vital Signs and Narrative: Vital Signs: Last Vital Signs Temp 98.1 F 07/03/24 08:00 Pulse 87 07/03/24 08:00 Resp 16 07/03/24 08:00 BP 128/84 07/03/24 12:09 Pulse Ox 98 07/03/24 08:00 O2 Del Method Room Air 07/03/24 08:00 BMI result Body Mass Index 35.0 General: AOx3, no acute distress Resp: CTA bilaterally CVS: S1, S2, RRR GI: +BS, NT, no distention Skin: Warm, dry Neuro: Cranial nerves II-XII grossly intact bilaterally. Motor grossly intact bilaterally. No focal deficits. No tremors. Extremities: No edema Psych: Appropriate affect Results Labs 07/03/24 07:40 Labs: Laboratory Results - last 24 hr 07/03/24 07/03/24 07/03/24 07:40 12:35 17:13 Anion Gap 13 Estim Creat Clear Calc 154.9 Estimated GFR > 60 POC Glucose 212 H 416 H* Fasting Glucose 350 H* Estimat Average Glucose 315 Hemoglobin A1c % 12.6 H Calcium 9.6 D Magnesium 2.0 Total Bilirubin 0.3 AST 35 ALT 65 H Alkaline Phosphatase 122 H Total Protein 7.4 Albumin 4.1 Triglycerides 141 Cholesterol 210 H LDL Cholesterol, Calc 136 H HDL Cholesterol 46 Vitamin B12 777 Folate 12.4 TSH 1.00 Assessment and Plan (1) Medical clearance for psychiatric admission: Status: Acute Plan Pt is a 40-year-old male with a PMH significant for?insulin-dependent type 2 diabetes, seizure disorder, alcohol use disorder with history of withdrawal with seizures, and GERD who is admitted to psychiatry unit for increasing depression and SI. Patient was initially brought into [facility] for seizure-like activity due to either medication noncompliance or alcohol withdrawal. EMS witnessed 2 seizures, and patient was postictal upon arrival to the ED.. Medical consult for admission H&P. Mood disorder Plan as per psychiatry Alcohol use disorder Pt with hx of withdrawal seizures Currently denies withdrawal symptoms Last drink 06/28/2024 Continue diazepam protocol Thiamine, famotidine, multivitamin Seizure disorder Unclear if pt has separate disorder or seizures from alcohol withdrawal Continue Keppra Insulin dependent type 2 diabetes Sliding-scale insulin, Lantus Continue metformin Patient has been advised to adhere to a diabetic diet and diabetic snacking GERD PPI Thank you for allowing us to participate in the care of this patient. Signing off at this time. Please re-consult if any acute complaints or issues arise.
[2024-07-03 20:00] VITALS: BP 126/91; PULSE 123; RESP 18; TEMP 36.7; O2SAT 95
[2024-07-03 20:40] LABS: Glucose, Whole Blood 388 mg/dL (60-115)
[2024-07-03] MEDS: Zolpidem Tartrate 5 MG TABLET PO (22:03)
[2024-07-03] MEDS: QUEtiapine Fumarate 400 MG TABLET PO (22:03)
[2024-07-03] MEDS: levETIRAcetam 500 MG TABLET PO (22:04)
[2024-07-03] MEDS: Melatonin 3 MG TABLET PO (22:04)
[2024-07-03] MEDS: Insulin Glargine,Hum.rec.anlog 100 UNIT/ML 10 ML VIAL 20 UNIT SUBCUT (22:06)
[2024-07-04] MEDS: Amoxicillin 500 MG CAPSULE PO ×4 (03:39→23:07)
[2024-07-04] MEDS: Omeprazole 20 MG CAPSULE.DR PO ×2 (06:45→15:54)
[2024-07-04 07:48] LABS: Glucose, Whole Blood 310 mg/dL (60-115)
[2024-07-04 08:00] VITALS: BP 144/97; PULSE 102; RESP 16; TEMP 36.5; O2SAT 96
[2024-07-04 08:04] LABS: Anion Gap 14 (12-20); Blood Urea Nitrogen 9 mg/dL (9-16); Calcium 9.7 mg/dL (8.4-10.2); Carbon Dioxide 24 mmol/L (22-29); Chloride 100 mmol/L (96-108); Creatinine Clr Calc Pharmacy 156.8; Estimated Glomerular Filt Rate > 60; Glucose Random 296 mg/dL (60-115); Potassium 4.3 mmol/L (3.3-5.1); Sodium 134 mmol/L (135-145)
[2024-07-04] MEDS: Insulin Glargine,Hum.rec.anlog 100 UNIT/ML 10 ML VIAL 50 UNIT SUBCUT (08:20)
[2024-07-04] MEDS: Insulin Lispro 100 UNIT/ML 3 ML VIAL SUBCUT ×5 (08:21→22:14)
[2024-07-04] MEDS: Nicotine 21 MG PATCH.TD24 TRANSDERMA (08:23)
[2024-07-04] MEDS: FLUoxetine HCl 20 MG CAPSULE 60 MG PO (08:24)
[2024-07-04] MEDS: Famotidine 20 MG TABLET PO ×2 (08:24→21:35)
[2024-07-04] MEDS: QUEtiapine Fumarate 200 MG TABLET PO (08:24)
[2024-07-04] MEDS: Thiamine HCL 100 MG TABLET PO (08:24)
[2024-07-04] MEDS: ARIPiprazole 10 MG TABLET PO (08:25)
[2024-07-04] MEDS: cloNIDine HCL 0.2 MG TABLET PO ×2 (08:25→21:35)
[2024-07-04] MEDS: Acamprosate Calcium 333 MG TABLET.DR 666 MG PO ×3 (08:25→21:35)
[2024-07-04] MEDS: levETIRAcetam 500 MG TABLET PO ×2 (08:25→21:35)
[2024-07-04] MEDS: Gabapentin 600 MG TABLET PO ×3 (08:25→21:35)
[2024-07-04] MEDS: metFORMIN HCl ER 500 MG TAB.ER.24H 1000 MG PO ×2 (08:26→17:37)
[2024-07-04] MEDS: OLANZapine 5 MG TABLET PO (08:29)
[2024-07-04 11:48] LABS: Glucose, Whole Blood 291 mg/dL (60-115)
--- NOTE | 2024-07-04 11:51 | P.PNPSI_ITS ---
Subjective Subjective Date of Service: 07/04/24 Reason For Visit: Alcohol dependence, major depressive disorder Subjective Notes: Conditional Voluntary Interim History: The nursing staff reported that the patient scored CIWA 13 last night and his fasting blood sugar was over 416. He has requested Ativan he thought that it was p.r.n. anxiety and he denied that he was struggling with alcohol withdrawal symptoms. On interview he denies new symptoms he states that he feels tired since he could not sleep well last night he is able to contract for safety. Mental Status Exam Mental Status Exam Patient Appearance: Appropriate Patient Orientation: Person and Situation Level of Consciousness: Awake and Appropriate Patient Behavior: Guarded and Passive Mood Description: Withdrawn Affect Description: Constricted Patient Cognition Impaired: Yes Ability to Follow Directions: Good Speech Pattern: Clear Hallucinations: None Delusions: Not Present Thought Process: Distracted Thought Content: positive for Barto Judgement: Fair Diagnostics Vital Signs (24Hr): Vital Signs - 24 hr 07/03/24 12:09 07/03/24 20:00 07/04/24 08:00 Temperature 98.1 F 97.7 F Pulse Rate 123 H 102 H Respiratory Rate 18 16 Blood Pressure 128/84 126/91 H 144/97 H Pulse Oximetry 95 96 Oxygen Delivery Method Room Air Room Air BMI result Body Mass Index 35.0 Labs 07/04/24 07:31 Labs: Laboratory Results - last 48 hr 07/03/24 07/03/24 07/03/24 07:40 12:35 17:13 Sodium 134 L Potassium 4.4 Chloride 101 Carbon Dioxide 24 Anion Gap 13 BUN 8 L Creatinine 0.83 Estim Creat Clear Calc 154.9 Estimated GFR > 60 POC Glucose 212 H 416 H* Random Glucose Fasting Glucose 350 H* Estimat Average Glucose 315 Hemoglobin A1c % 12.6 H Calcium 9.6 D Magnesium 2.0 Total Bilirubin 0.3 AST 35 ALT 65 H Alkaline Phosphatase 122 H Total Protein 7.4 Albumin 4.1 Triglycerides 141 Cholesterol 210 H LDL Cholesterol, Calc 136 H HDL Cholesterol 46 Vitamin B12 777 Folate 12.4 TSH 1.00 07/03/24 07/04/24 07/04/24 20:36 07:31 07:44 Sodium 134 L Potassium 4.3 Chloride 100 Carbon Dioxide 24 Anion Gap 14 BUN 9 Creatinine 0.82 Estim Creat Clear Calc 156.8 Estimated GFR > 60 POC Glucose 388 H* 310 H Random Glucose 296 H Fasting Glucose Estimat Average Glucose Hemoglobin A1c % Calcium 9.7 Magnesium Total Bilirubin AST ALT Alkaline Phosphatase Total Protein Albumin Triglycerides Cholesterol LDL Cholesterol, Calc HDL Cholesterol Vitamin B12 Folate TSH 07/04/24 11:45 Sodium Potassium Chloride Carbon Dioxide Anion Gap BUN Creatinine Estim Creat Clear Calc Estimated GFR POC Glucose 291 H Random Glucose Fasting Glucose Estimat Average Glucose Hemoglobin A1c % Calcium Magnesium Total Bilirubin AST ALT Alkaline Phosphatase Total Protein Albumin Triglycerides Cholesterol LDL Cholesterol, Calc HDL Cholesterol Vitamin B12 Folate TSH Medications Medications Current Medications Acamprosate (Acamprosate Calcium 333 Mg Tablet.Dr) 666 mg PO TID [facility] Last Admin: 07/04/24 08:25 Dose: 666 mg Acetaminophen (Acetaminophen 325 Mg Tablet) 650 mg PO Q6H PRN PRN Reason: Headache/Pain Mild Scale (1-3) Al Hydroxide/Mg Hydroxide (Magnesium Hydrox/Alum Hydrox 30 Ml Oral.Susp) 30 ml PO Q6H PRN PRN Reason: Heartburn/Nausea Amoxicillin (Amoxicillin 500 Mg Capsule) 500 mg PO Q8H [facility] Stop: 07/10/24 09:00 Last Admin: 07/04/24 03:39 Dose: 500 mg Aripiprazole (Aripiprazole 10 Mg Tablet) 10 mg PO DAILY [facility] Last Admin: 07/04/24 08:25 Dose: 10 mg Clonidine HCl (Clonidine Hcl 0.2 Mg Tablet) 0.2 mg PO BID [facility]; Protocol Last Admin: 07/04/24 08:25 Dose: 0.2 mg Diazepam (Diazepam 5 Mg Tablet) 5 mg PO Q4H PRN PRN Reason: [facility] 05-08 Last Admin: 07/03/24 06:41 Dose: 5 mg Diazepam (Diazepam 5 Mg Tablet) 10 mg PO Q4H PRN PRN Reason: [facility] Last Admin: 07/03/24 22:04 Dose: 10 mg Doxepin HCl (Doxepin Hcl 25 Mg Capsule) 75 mg PO BEDTIME [facility] Famotidine (Famotidine 20 Mg Tablet) 20 mg PO BID [facility] Last Admin: 07/04/24 08:24 Dose: 20 mg Fluoxetine HCl (Fluoxetine Hcl 20 Mg Capsule) 60 mg PO DAILY [facility] Last Admin: 07/04/24 08:24 Dose: 60 mg Gabapentin (Gabapentin 600 Mg Tablet) 600 mg PO TID [facility] Last Admin: 07/04/24 08:25 Dose: 600 mg Glucose (Glucose Gel 15 Gm Gel..Gram.) 15 gm PO Q15M PRN; Protocol PRN Reason: per Hypoglycemia Standing Ord. Hydroxyzine HCl (Hydroxyzine Hcl 25 Mg Tablet) 25 mg PO Q8H PRN PRN Reason: Anxiety Ibuprofen (Ibuprofen 800 Mg Tablet) 800 mg PO TID PRN PRN Reason: headache Insulin Glargine (Insulin Glargine,Hum.Rec.Anlog 100 Unit/Ml 10 Ml Vial) 50 unit SUBCUT DAILY [facility] Last Admin: 07/04/24 08:20 Dose: 50 unit Insulin Glargine (Insulin Glargine,Hum.Rec.Anlog 100 Unit/Ml 10 Ml Vial) 20 unit SUBCUT BEDTIME [facility] Last Admin: 07/03/24 22:06 Dose: 20 unit Insulin Human Lispro (Insulin Lispro 100 Unit/Ml 3 Ml Vial) 0 unit SUBCUT QIDACHS [facility]; Protocol Last Admin: 07/04/24 08:21 Dose: 8 unit Levetiracetam (Levetiracetam 500 Mg Tablet) 500 mg PO BID [facility] Last Admin: 07/04/24 08:25 Dose: 500 mg Magnesium Hydroxide (Milk Of Magnesia 30 Ml Oral.Susp) 30 ml PO DAILY PRN PRN Reason: Constipation Melatonin (Melatonin 3 Mg Tablet) 3 mg PO BEDTIME [facility] Last Admin: 07/03/24 22:04 Dose: 3 mg Metformin HCl (Metformin Hcl Er 500 Mg Tab.Er.24h) 1,000 mg PO BIDWM [facility] Last Admin: 07/04/24 08:26 Dose: 1,000 mg Nicotine (Nicotine 21 Mg Patch.Td24) 21 mg TRANSDERMA DAILY [facility] Last Admin: 07/04/24 08:23 Dose: 21 mg Nicotine Polacrilex (Nicotine Polacrilex 2 Mg Gum) 2 mg BUCCAL Q2H PRN PRN Reason: Nicotine Cravings Olanzapine (Olanzapine 5 Mg Tablet) 5 mg PO Q4H PRN PRN Reason: agitation Last Admin: 07/04/24 08:29 Dose: 5 mg Omeprazole (Omeprazole 20 Mg Capsule.Dr) 20 mg PO BID@0630,1630 [facility] Last Admin: 07/04/24 06:45 Dose: 20 mg Quetiapine Fumarate (Quetiapine Fumarate 200 Mg Tablet) 200 mg PO DAILY [facility] Last Admin: 07/04/24 08:24 Dose: 200 mg Quetiapine Fumarate (Quetiapine Fumarate 400 Mg Tablet) 400 mg PO BEDTIME [facility] Last Admin: 07/03/24 22:03 Dose: 400 mg Thiamine HCl (Thiamine Hcl 100 Mg Tablet) 100 mg PO DAILY [facility] Last Admin: 07/04/24 08:24 Dose: 100 mg Trazodone HCl (Trazodone Hcl 100 Mg Tablet) 200 mg PO BEDTIME PRN PRN Reason: insomnia Zolpidem Tartrate (Zolpidem Tartrate 5 Mg Tablet) 5 mg PO BEDTIME [facility] Last Admin: 07/03/24 22:03 Dose: 5 mg Allergies Allergies Allergy/AdvReac Type Severity Reaction Status Date / Time No Known Allergies Allergy Verified 11/21/22 18:06 Assessment & Plan Assessment & Plan (1) Medical clearance for psychiatric admission: Status: Acute Code(s): Z00.8 - Encounter for other general examination Plan Pt is a 40-year-old male with a PMH significant for?insulin-dependent type 2 diabetes, seizure disorder, alcohol use disorder with history of withdrawal with seizures, and GERD who is admitted to psychiatry unit for increasing depression and SI. Patient was initially brought into [facility] for seizure-like activity due to either medication noncompliance or alcohol withdrawal. EMS witnessed 2 seizures, and patient was postictal upon arrival to the ED.. Medical consult for admission H&P. Mood disorder Plan as per psychiatry Alcohol use disorder Pt with hx of withdrawal seizures Currently denies withdrawal symptoms Last drink 06/28/2024 Continue diazepam protocol Thiamine, famotidine, multivitamin Seizure disorder Unclear if pt has separate disorder or seizures from alcohol withdrawal Continue Keppra Insulin dependent type 2 diabetes Sliding-scale insulin, Lantus Continue metformin Patient has been advised to adhere to a diabetic diet and diabetic snacking GERD PPI Plan 1. Gather collateral information. 2. Continue CIWA protocol. 3. Continue medical treatment Reason for continued inpatient stay Substantial Risk for: inability to function, rapid decompensation and med/psych decompensation Time Spent With Patient Time: Total time managing care of this patient today __20__ minutes.
[2024-07-04 12:12] VITALS: BP 138/81; PULSE 106; RESP 18; TEMP 36.8; O2SAT 96
[2024-07-04] MEDS: diazePAM 5 MG TABLET PO ×2 (14:03→21:22)
[2024-07-04] MEDS: Acetaminophen 325 MG TABLET 650 MG PO ×2 (14:03→21:22)
[2024-07-04] MEDS: hydrOXYzine HCL 25 MG TABLET PO ×2 (14:03→21:22)
[2024-07-04] MEDS: Ibuprofen 800 MG TABLET PO (15:54)
[2024-07-04 16:00] VITALS: BP 134/87; PULSE 106; RESP 16; TEMP 36.6; O2SAT 95
[2024-07-04 17:21] LABS: Glucose, Whole Blood 365 mg/dL (60-115)
--- NOTE | 2024-07-04 17:42 | PC.NURSE ---
POC taken at 1717, prior to dinner, with a reading of 365. Pt asymptomatic. Hosptalist Dr. Rodarte made aware. Per MD orders, pt was administered 10 units of sliding scale insulin.
[2024-07-04 19:59] VITALS: BP 143/88; PULSE 113; RESP 18; TEMP 36.9; O2SAT 97
[2024-07-04 20:50] LABS: Glucose, Whole Blood 494 mg/dL (60-115)
[2024-07-04] MEDS: Insulin Glargine,Hum.rec.anlog 100 UNIT/ML 10 ML VIAL 20 UNIT SUBCUT (21:24)
[2024-07-04 21:35] VITALS: BP 143/88
[2024-07-04] MEDS: Melatonin 3 MG TABLET PO (21:35)
[2024-07-04] MEDS: Zolpidem Tartrate 5 MG TABLET PO (21:35)
[2024-07-04] MEDS: QUEtiapine Fumarate 400 MG TABLET PO (21:35)
[2024-07-04] MEDS: traZODone HCL 100 MG TABLET 200 MG PO (21:47)
[2024-07-04 22:13] LABS: Glucose, Whole Blood 417 mg/dL (60-115)
[2024-07-05] MEDS: Omeprazole 20 MG CAPSULE.DR PO ×2 (06:33→17:26)
[2024-07-05 07:21] LABS: Glucose, Whole Blood 284 mg/dL (60-115)
[2024-07-05 08:00] VITALS: BP 132/84; PULSE 101; RESP 16; TEMP 36.4; O2SAT 97
[2024-07-05] MEDS: Insulin Glargine,Hum.rec.anlog 100 UNIT/ML 10 ML VIAL 50 UNIT SUBCUT (08:19)
[2024-07-05] MEDS: Insulin Lispro 100 UNIT/ML 3 ML VIAL SUBCUT ×4 (08:20→20:40)
[2024-07-05] MEDS: FLUoxetine HCl 20 MG CAPSULE 60 MG PO (08:22)
[2024-07-05] MEDS: cloNIDine HCL 0.2 MG TABLET PO ×2 (08:22→21:36)
[2024-07-05] MEDS: Nicotine 21 MG PATCH.TD24 TRANSDERMA (08:22)
[2024-07-05] MEDS: ARIPiprazole 10 MG TABLET PO (08:22)
[2024-07-05] MEDS: metFORMIN HCl ER 500 MG TAB.ER.24H 1000 MG PO ×2 (08:22→17:26)
[2024-07-05] MEDS: levETIRAcetam 500 MG TABLET PO ×2 (08:23→21:36)
[2024-07-05] MEDS: QUEtiapine Fumarate 200 MG TABLET PO (08:23)
[2024-07-05] MEDS: Famotidine 20 MG TABLET PO ×2 (08:23→21:35)
[2024-07-05] MEDS: Amoxicillin 500 MG CAPSULE PO ×3 (08:23→21:36)
[2024-07-05] MEDS: Thiamine HCL 100 MG TABLET PO (08:23)
[2024-07-05] MEDS: Gabapentin 600 MG TABLET PO ×3 (08:23→21:37)
[2024-07-05] MEDS: Acamprosate Calcium 333 MG TABLET.DR 666 MG PO ×3 (08:23→21:36)
[2024-07-05 11:57] VITALS: BP 113/73; PULSE 96; RESP 16; TEMP 36.6; O2SAT 96
[2024-07-05 11:58] LABS: Glucose, Whole Blood 317 mg/dL (60-115)
--- NOTE | 2024-07-05 13:46 | HO.PSYCHPN ---
Subjective Subjective Date of Service: 07/05/24 Reason For Visit: Alcohol dependence, major depressive disorder Subjective Notes: Conditional Voluntary Interim History: The nursing staff reported the patient had been pleasant and cooperative he has scored CIWA last night but not today. He denies withdrawal symptoms and he signed a 3 day notice. He asked for restarting his doxepin and we did today. Fasting blood had been high and he was advised to watch his diet. On interview the patient denies new symptoms he feels better. Mental Status Exam Mental Status Exam Patient Appearance: Appropriate Patient Orientation: Person, Time and Situation Level of Consciousness: Awake and Appropriate Patient Behavior: Guarded and Passive Mood Description: Withdrawn Affect Description: Constricted Patient Cognition Impaired: Yes Ability to Follow Directions: Good Speech Pattern: Clear Hallucinations: None Delusions: Not Present Thought Process: Distracted and Slowed Thinking Thought Content: positive for Ulysses and positive for Poverty of Content Judgement: Fair Diagnostics Vital Signs (24Hr): Vital Signs - 24 hr 07/04/24 16:00 07/04/24 19:59 07/04/24 21:35 Temperature 98 F 98.4 F Pulse Rate 106 H 113 H Respiratory Rate 16 18 Blood Pressure 134/87 143/88 H 143/88 H Pulse Oximetry 95 97 Oxygen Delivery Method Room Air Room Air 07/05/24 08:00 07/05/24 11:57 Temperature 97.5 F 98 F Pulse Rate 101 H 96 Respiratory Rate 16 16 Blood Pressure 132/84 113/73 Pulse Oximetry 97 96 Oxygen Delivery Method Room Air Room Air BMI result Body Mass Index 35.0 Labs 07/04/24 07:31 Labs: Laboratory Results - last 48 hr 07/03/24 07/03/24 07/04/24 17:13 20:36 07:31 Sodium 134 L Potassium 4.3 Chloride 100 Carbon Dioxide 24 Anion Gap 14 BUN 9 Creatinine 0.82 Estim Creat Clear Calc 156.8 Estimated GFR > 60 POC Glucose 416 H* 388 H* Random Glucose 296 H Calcium 9.7 07/04/24 07/04/24 07/04/24 07:44 11:45 17:17 Sodium Potassium Chloride Carbon Dioxide Anion Gap BUN Creatinine Estim Creat Clear Calc Estimated GFR POC Glucose 310 H 291 H 365 H* Random Glucose Calcium 07/04/24 07/04/24 07/05/24 20:45 22:07 07:18 Sodium Potassium Chloride Carbon Dioxide Anion Gap BUN Creatinine Estim Creat Clear Calc Estimated GFR POC Glucose 494 H* 417 H* 284 H Random Glucose Calcium 07/05/24 11:52 Sodium Potassium Chloride Carbon Dioxide Anion Gap BUN Creatinine Estim Creat Clear Calc Estimated GFR POC Glucose 317 H Random Glucose Calcium Medications Medications Current Medications Acamprosate (Acamprosate Calcium 333 Mg Tablet.Dr) 666 mg PO TID [facility] Last Admin: 07/05/24 08:23 Dose: 666 mg Acetaminophen (Acetaminophen 325 Mg Tablet) 650 mg PO Q6H PRN PRN Reason: Headache/Pain Mild Scale (1-3) Last Admin: 07/04/24 21:22 Dose: 650 mg Al Hydroxide/Mg Hydroxide (Magnesium Hydrox/Alum Hydrox 30 Ml Oral.Susp) 30 ml PO Q6H PRN PRN Reason: Heartburn/Nausea Amoxicillin (Amoxicillin 500 Mg Capsule) 500 mg PO TID [facility] Stop: 07/10/24 09:01 Last Admin: 07/05/24 08:23 Dose: 500 mg Aripiprazole (Aripiprazole 10 Mg Tablet) 10 mg PO DAILY [facility] Last Admin: 07/05/24 08:22 Dose: 10 mg Clonidine HCl (Clonidine Hcl 0.2 Mg Tablet) 0.2 mg PO BID [facility]; Protocol Last Admin: 07/05/24 08:22 Dose: 0.2 mg Diazepam (Diazepam 5 Mg Tablet) 5 mg PO Q4H PRN PRN Reason: ciwa 7-12 Last Admin: 07/04/24 21:22 Dose: 5 mg Diazepam (Diazepam 5 Mg Tablet) 10 mg PO Q4H PRN PRN Reason: ciwa 13-17 Last Admin: 07/03/24 22:04 Dose: 10 mg Doxepin HCl (Doxepin Hcl 25 Mg Capsule) 75 mg PO BEDTIME [facility] Famotidine (Famotidine 20 Mg Tablet) 20 mg PO BID [facility] Last Admin: 07/05/24 08:23 Dose: 20 mg Fluoxetine HCl (Fluoxetine Hcl 20 Mg Capsule) 60 mg PO DAILY [facility] Last Admin: 07/05/24 08:22 Dose: 60 mg Gabapentin (Gabapentin 600 Mg Tablet) 600 mg PO TID [facility] Last Admin: 07/05/24 08:23 Dose: 600 mg Glucose (Glucose Gel 15 Gm Gel..Gram.) 15 gm PO Q15M PRN; Protocol PRN Reason: per Hypoglycemia Standing Ord. Hydroxyzine HCl (Hydroxyzine Hcl 25 Mg Tablet) 25 mg PO Q8H PRN PRN Reason: Anxiety Last Admin: 07/04/24 21:22 Dose: 25 mg Ibuprofen (Ibuprofen 800 Mg Tablet) 800 mg PO TID PRN PRN Reason: headache Last Admin: 07/04/24 15:54 Dose: 800 mg Insulin Glargine (Insulin Glargine,Hum.Rec.Anlog 100 Unit/Ml 10 Ml Vial) 50 unit SUBCUT DAILY [facility] Last Admin: 07/05/24 08:19 Dose: 50 unit Insulin Glargine (Insulin Glargine,Hum.Rec.Anlog 100 Unit/Ml 10 Ml Vial) 20 unit SUBCUT BEDTIME [facility] Last Admin: 07/04/24 21:24 Dose: 20 unit Insulin Human Lispro (Insulin Lispro 100 Unit/Ml 3 Ml Vial) 0 unit SUBCUT QIDACHS [facility]; Protocol Last Admin: 07/05/24 12:08 Dose: 8 unit Levetiracetam (Levetiracetam 500 Mg Tablet) 500 mg PO BID [facility] Last Admin: 07/05/24 08:23 Dose: 500 mg Magnesium Hydroxide (Milk Of Magnesia 30 Ml Oral.Susp) 30 ml PO DAILY PRN PRN Reason: Constipation Melatonin (Melatonin 3 Mg Tablet) 3 mg PO BEDTIME [facility] Last Admin: 07/04/24 21:35 Dose: 3 mg Metformin HCl (Metformin Hcl Er 500 Mg Tab.Er.24h) 1,000 mg PO BIDWM [facility] Last Admin: 07/05/24 08:22 Dose: 1,000 mg Nicotine (Nicotine 21 Mg Patch.Td24) 21 mg TRANSDERMA DAILY [facility] Last Admin: 07/05/24 08:22 Dose: 21 mg Nicotine Polacrilex (Nicotine Polacrilex 2 Mg Gum) 2 mg BUCCAL Q2H PRN PRN Reason: Nicotine Cravings Olanzapine (Olanzapine 5 Mg Tablet) 5 mg PO Q4H PRN PRN Reason: agitation Last Admin: 07/04/24 08:29 Dose: 5 mg Omeprazole (Omeprazole 20 Mg Capsule.Dr) 20 mg PO BID@0630,1630 [facility] Last Admin: 07/05/24 06:33 Dose: 20 mg Quetiapine Fumarate (Quetiapine Fumarate 200 Mg Tablet) 200 mg PO DAILY [facility] Last Admin: 09/08/24 08:23 Dose: 200 mg Quetiapine Fumarate (Quetiapine Fumarate 400 Mg Tablet) 400 mg PO BEDTIME [facility] Last Admin: 07/04/24 21:35 Dose: 400 mg Thiamine HCl (Thiamine Hcl 100 Mg Tablet) 100 mg PO DAILY [facility] Last Admin: 07/05/24 08:23 Dose: 100 mg Trazodone HCl (Trazodone Hcl 100 Mg Tablet) 200 mg PO BEDTIME PRN PRN Reason: insomnia Last Admin: 07/04/24 21:47 Dose: 200 mg Zolpidem Tartrate (Zolpidem Tartrate 5 Mg Tablet) 5 mg PO BEDTIME [facility] Last Admin: 07/04/24 21:35 Dose: 5 mg Allergies Allergies Allergy/AdvReac Type Severity Reaction Status Date / Time No Known Allergies Allergy Verified 11/21/22 18:06 Assessment & Plan Assessment & Plan (1) Medical clearance for psychiatric admission: Status: Acute Code(s): Z00.8 - Encounter for other general examination Plan Pt is a 40-year-old male with a PMH significant for?insulin-dependent type 2 diabetes, seizure disorder, alcohol use disorder with history of withdrawal with seizures, and GERD who is admitted to [facility] psychiatry unit for increasing depression and SI. Patient was initially brought into [facility] for seizure-like activity due to either medication noncompliance or alcohol withdrawal. EMS witnessed 2 seizures, and patient was postictal upon arrival to the ED.. Medical consult for admission H&P. Mood disorder Plan as per psychiatry Alcohol use disorder Pt with hx of withdrawal seizures Currently denies withdrawal symptoms Last drink 06/28/2024 Continue diazepam protocol Thiamine, famotidine, multivitamin Seizure disorder Unclear if pt has separate disorder or seizures from alcohol withdrawal Continue Keppra Insulin dependent type 2 diabetes Sliding-scale insulin, Lantus Continue metformin Patient has been advised to adhere to a diabetic diet and diabetic snacking GERD PPI Plan 1. Gather collateral information. 2. Continue CIWA protocol. 3. Continue medical treatment Reason for continued inpatient stay Substantial Risk for: inability to function, rapid decompensation and med/psych decompensation Time Spent With Patient Time: Total time managing care of this patient today _20___ minutes.
[2024-07-05] MEDS: hydrOXYzine HCL 25 MG TABLET PO (14:38)
[2024-07-05] MEDS: Ibuprofen 800 MG TABLET PO (14:38)
[2024-07-05 16:00] VITALS: BP 144/80; PULSE 89; RESP 16; TEMP 36.8; O2SAT 96
[2024-07-05 17:10] LABS: Glucose, Whole Blood 356 mg/dL (60-115)
--- NOTE | 2024-07-05 17:12 | PC.NURSE ---
1706 POC 356. Hospitalist made aware, and new orders received for increase in sliding scale coverage. Patient made aware.
[2024-07-05 20:00] VITALS: BP 141/92; PULSE 88; RESP 16; TEMP 36.7; O2SAT 96
[2024-07-05 20:25] LABS: Glucose, Whole Blood 291 mg/dL (60-115)
[2024-07-05] MEDS: Insulin Glargine,Hum.rec.anlog 100 UNIT/ML 10 ML VIAL 20 UNIT SUBCUT (20:40)
[2024-07-05] MEDS: QUEtiapine Fumarate 400 MG TABLET PO (21:35)
[2024-07-05 21:36] VITALS: BP 141/92
[2024-07-05] MEDS: Doxepin HCl 25 MG CAPSULE 75 MG PO (21:36)
[2024-07-05] MEDS: Melatonin 3 MG TABLET PO (21:36)
[2024-07-05] MEDS: Zolpidem Tartrate 5 MG TABLET PO (21:36)
[2024-07-06] MEDS: Omeprazole 20 MG CAPSULE.DR PO ×2 (06:23→16:04)
[2024-07-06 08:00] VITALS: BP 136/82; PULSE 103; RESP 18; TEMP 36.4; O2SAT 97
[2024-07-06 08:29] LABS: Glucose, Whole Blood 233 mg/dL (60-115)
[2024-07-06] MEDS: ARIPiprazole 10 MG TABLET PO (09:19)
[2024-07-06] MEDS: levETIRAcetam 500 MG TABLET PO ×2 (09:19→21:32)
[2024-07-06] MEDS: Amoxicillin 500 MG CAPSULE PO ×3 (09:20→21:30)
[2024-07-06] MEDS: Thiamine HCL 100 MG TABLET PO (09:20)
[2024-07-06] MEDS: Gabapentin 600 MG TABLET PO ×3 (09:20→21:32)
[2024-07-06] MEDS: metFORMIN HCl ER 500 MG TAB.ER.24H 1000 MG PO ×2 (09:20→18:12)
[2024-07-06] MEDS: QUEtiapine Fumarate 200 MG TABLET PO (09:20)
[2024-07-06] MEDS: Famotidine 20 MG TABLET PO ×2 (09:20→21:32)
[2024-07-06] MEDS: Acamprosate Calcium 333 MG TABLET.DR 666 MG PO ×3 (09:21→21:33)
[2024-07-06] MEDS: Insulin Glargine,Hum.rec.anlog 100 UNIT/ML 10 ML VIAL 50 UNIT SUBCUT (09:21)
[2024-07-06] MEDS: FLUoxetine HCl 20 MG CAPSULE 60 MG PO (09:21)
[2024-07-06] MEDS: Insulin Lispro 100 UNIT/ML 3 ML VIAL SUBCUT ×4 (09:23→21:35)
[2024-07-06] MEDS: Nicotine 21 MG PATCH.TD24 TRANSDERMA (09:24)
[2024-07-06] MEDS: cloNIDine HCL 0.2 MG TABLET PO ×2 (10:33→21:33)
[2024-07-06 10:35] VITALS: BP 139/81; PULSE 104; RESP 18
[2024-07-06 12:28] LABS: Glucose, Whole Blood 256 mg/dL (60-115)
[2024-07-06] MEDS: hydrOXYzine HCL 25 MG TABLET PO (16:05)
--- NOTE | 2024-07-06 17:31 | HO.PSYCHPN ---
Subjective Subjective Date of Service: 07/06/24 Reason For Visit: Alcohol dependence, major depressive disorder Subjective Notes: Section 12B Healthcare Proxy: No Guardianship: No Medical Problems Affecting Mental Status: No Interim History: Pt reports a reasonable weekend. Plans have changed . I will live with my mother. Call to Alize Cruz [phone] with pt who validates this plan. Med regime and rationale for meds reviewed with Alize along with pt's out pt plan. Calls to Mike Romero PCP team by team. They will contact pt with an appt day and time. Pt feeling ready to leave and prepared to continue out patient treatment. No SI/HI/AH/VH sx of nery or psychosis. Medication Compliance: Yes Side effects from medications: No Attending Groups: Intermittent Review of Systems Acute medical concerns: No Medical Review of Systems: unchanged Review of Systems Review of Systems Yes all other systems are reviewed and are negative (denies) Mental Status Exam Mental Status Exam Patient Appearance: Appropriate Patient Orientation: Person, Place, Time and Situation Level of Consciousness: Alert Patient Behavior: Talkative, Cooperative and Good Eye Contact Mood Description: Appropriate Affect Description: Appropriate Patient Cognition Impaired: No Ability to Follow Directions: Good Speech Pattern: Spontaneous Speech Memory Description: Episodic Impaired Hallucinations: None Delusions: Not Present Thought Process: Goal Oriented Thought Content: positive for Goal Oriented Depressive Symptoms: Thoughts of /Suicide (denies) Judgement: Good Diagnostics Vital Signs (24Hr): Vital Signs - 24 hr 07/05/24 20:00 07/05/24 21:36 07/06/24 08:00 Temperature 98.0 F 97.6 F Pulse Rate 88 103 H Respiratory Rate 16 18 Blood Pressure 141/92 H 141/92 H 136/82 Pulse Oximetry 96 97 Oxygen Delivery Method Room Air Room Air 07/06/24 10:35 Temperature Pulse Rate 104 H Respiratory Rate 18 Blood Pressure 139/81 Pulse Oximetry Oxygen Delivery Method BMI result Body Mass Index 35.0 Labs 07/04/24 07:31 Labs: Laboratory Results - last 48 hr 07/04/24 07/04/24 07/05/24 20:45 22:07 07:18 POC Glucose 494 H* 417 H* 284 H 07/05/24 07/05/24 07/05/24 11:52 17:06 20:21 POC Glucose 317 H 356 H* 291 H 07/06/24 07/06/24 08:22 12:24 POC Glucose 233 H 256 H Medications Medications Current Medications Acamprosate (Acamprosate Calcium 333 Mg Tablet.Dr) 666 mg PO TID [facility] Last Admin: 07/06/24 16:04 Dose: 666 mg Acetaminophen (Acetaminophen 325 Mg Tablet) 650 mg PO Q6H PRN PRN Reason: Headache/Pain Mild Scale (1-3) Last Admin: 07/04/24 21:22 Dose: 650 mg Al Hydroxide/Mg Hydroxide (Magnesium Hydrox/Alum Hydrox 30 Ml Oral.Susp) 30 ml PO Q6H PRN PRN Reason: Heartburn/Nausea Amoxicillin (Amoxicillin 500 Mg Capsule) 500 mg PO TID [facility] Stop: 07/10/24 09:01 Last Admin: 07/06/24 16:05 Dose: 500 mg Aripiprazole (Aripiprazole 10 Mg Tablet) 10 mg PO DAILY [facility] Last Admin: 07/06/24 09:19 Dose: 10 mg Clonidine HCl (Clonidine Hcl 0.2 Mg Tablet) 0.2 mg PO BID [facility]; Protocol Last Admin: 07/06/24 10:33 Dose: 0.2 mg Diazepam (Diazepam 5 Mg Tablet) 5 mg PO Q4H PRN PRN Reason: ciwa 7-12 Last Admin: 07/04/24 21:22 Dose: 5 mg Diazepam (Diazepam 5 Mg Tablet) 10 mg PO Q4H PRN PRN Reason: ciwa 13-17 Last Admin: 07/03/24 22:04 Dose: 10 mg Doxepin HCl (Doxepin Hcl 25 Mg Capsule) 75 mg PO BEDTIME [facility] Last Admin: 07/05/24 21:36 Dose: 75 mg Famotidine (Famotidine 20 Mg Tablet) 20 mg PO BID [facility] Last Admin: 07/06/24 09:20 Dose: 20 mg Fluoxetine HCl (Fluoxetine Hcl 20 Mg Capsule) 60 mg PO DAILY [facility] Last Admin: 07/06/24 09:21 Dose: 60 mg Gabapentin (Gabapentin 600 Mg Tablet) 600 mg PO TID [facility] Last Admin: 07/06/24 16:04 Dose: 600 mg Glucose (Glucose Gel 15 Gm Gel..Gram.) 15 gm PO Q15M PRN; Protocol PRN Reason: per Hypoglycemia Standing Ord. Hydroxyzine HCl (Hydroxyzine Hcl 25 Mg Tablet) 25 mg PO Q8H PRN PRN Reason: Anxiety Last Admin: 07/06/24 16:05 Dose: 25 mg Ibuprofen (Ibuprofen 800 Mg Tablet) 800 mg PO TID PRN PRN Reason: headache Last Admin: 07/05/24 14:38 Dose: 800 mg Insulin Glargine (Insulin Glargine,Hum.Rec.Anlog 100 Unit/Ml 10 Ml Vial) 50 unit SUBCUT DAILY [facility] Last Admin: 07/06/24 09:21 Dose: 50 unit Insulin Glargine (Insulin Glargine,Hum.Rec.Anlog 100 Unit/Ml 10 Ml Vial) 20 unit SUBCUT BEDTIME [facility] Last Admin: 07/05/24 20:40 Dose: 20 unit Insulin Human Lispro (Insulin Lispro 100 Unit/Ml 3 Ml Vial) 0 unit SUBCUT QIDACHS [facility]; Protocol Last Admin: 07/06/24 13:16 Dose: 8 unit Levetiracetam (Levetiracetam 500 Mg Tablet) 500 mg PO BID [facility] Last Admin: 07/06/24 09:19 Dose: 500 mg Magnesium Hydroxide (Milk Of Magnesia 30 Ml Oral.Susp) 30 ml PO DAILY PRN PRN Reason: Constipation Melatonin (Melatonin 3 Mg Tablet) 3 mg PO BEDTIME [facility] Last Admin: 07/05/24 21:36 Dose: 3 mg Metformin HCl (Metformin Hcl Er 500 Mg Tab.Er.24h) 1,000 mg PO BIDWM [facility] Last Admin: 07/06/24 09:20 Dose: 1,000 mg Nicotine (Nicotine 21 Mg Patch.Td24) 21 mg TRANSDERMA DAILY [facility] Last Admin: 07/06/24 09:24 Dose: 21 mg Nicotine Polacrilex (Nicotine Polacrilex 2 Mg Gum) 2 mg BUCCAL Q2H PRN PRN Reason: Nicotine Cravings Olanzapine (Olanzapine 5 Mg Tablet) 5 mg PO Q4H PRN PRN Reason: agitation Last Admin: 07/04/24 08:29 Dose: 5 mg Omeprazole (Omeprazole 20 Mg Capsule.Dr) 20 mg PO BID@0630,1630 [facility] Last Admin: 07/06/24 16:04 Dose: 20 mg Quetiapine Fumarate (Quetiapine Fumarate 200 Mg Tablet) 200 mg PO DAILY [facility] Last Admin: 07/06/24 09:20 Dose: 200 mg Quetiapine Fumarate (Quetiapine Fumarate 400 Mg Tablet) 400 mg PO BEDTIME [facility] Last Admin: 07/05/24 21:35 Dose: 400 mg Thiamine HCl (Thiamine Hcl 100 Mg Tablet) 100 mg PO DAILY [facility] Last Admin: 07/06/24 09:20 Dose: 100 mg Trazodone HCl (Trazodone Hcl 100 Mg Tablet) 200 mg PO BEDTIME PRN PRN Reason: insomnia Last Admin: 07/04/24 21:47 Dose: 200 mg Zolpidem Tartrate (Zolpidem Tartrate 5 Mg Tablet) 5 mg PO BEDTIME [facility] Last Admin: 07/05/24 21:36 Dose: 5 mg Allergies Allergies Allergy/AdvReac Type Severity Reaction Status Date / Time No Known Allergies Allergy Verified 11/21/22 18:06 Assessment & Plan Assessment & Plan (1) PTSD (post-traumatic stress disorder): Status: Acute Code(s): F43.10 - Post-traumatic stress disorder, unspecified (2) Recurrent major depression: Status: Acute Code(s): F33.9 - Major depressive disorder, recurrent, unspecified Assessment and Plan: 07/06/24 Discharge 07/07. Pt will live with his mother upon discharge. (3) Alcohol use disorder, severe, dependence: Status: Acute Code(s): F10.20 - Alcohol dependence, uncomplicated Plan Pt is a 40-year-old male with a PMH significant for?insulin-dependent type 2 diabetes, seizure disorder, alcohol use disorder with history of withdrawal with seizures, and GERD who is admitted to [facility] psychiatry unit for increasing depression and SI. Patient was initially brought into [facility] for seizure-like activity due to either medication noncompliance or alcohol withdrawal. EMS witnessed 2 seizures, and patient was postictal upon arrival to the ED.. Medical consult for admission H&P. Mood disorder Plan as per psychiatry Alcohol use disorder Pt with hx of withdrawal seizures Currently denies withdrawal symptoms Last drink 06/28/2024 Continue diazepam protocol Thiamine, famotidine, multivitamin Seizure disorder Unclear if pt has separate disorder or seizures from alcohol withdrawal Continue Keppra Insulin dependent type 2 diabetes Sliding-scale insulin, Lantus Continue metformin Patient has been advised to adhere to a diabetic diet and diabetic snacking GERD PPI Plan 1. Gather collateral information. 2. Continue [facility] protocol. 3. Continue medical treatment Reason for continued inpatient stay Substantial Risk for: stable for discharge Time Spent With Patient Time: Total time managing care of this patient today ____ minutes.
[2024-07-06 17:54] LABS: Glucose, Whole Blood 324 mg/dL (60-115)
[2024-07-06 20:00] VITALS: BP 141/94; BP 157/90; PULSE 101; TEMP 36.7; O2SAT 99
[2024-07-06 20:30] LABS: Glucose, Whole Blood 332 mg/dL (60-115)
[2024-07-06] MEDS: QUEtiapine Fumarate 400 MG TABLET PO (21:30)
[2024-07-06] MEDS: Doxepin HCl 25 MG CAPSULE 75 MG PO (21:31)
[2024-07-06] MEDS: Zolpidem Tartrate 5 MG TABLET PO (21:31)
[2024-07-06] MEDS: Melatonin 3 MG TABLET PO (21:32)
[2024-07-06 21:33] VITALS: BP 157/90
[2024-07-06] MEDS: Insulin Glargine,Hum.rec.anlog 100 UNIT/ML 10 ML VIAL 20 UNIT SUBCUT (21:36)
[2024-07-07] MEDS: Omeprazole 20 MG CAPSULE.DR PO (07:12)
[2024-07-07] MEDS: Insulin Glargine,Hum.rec.anlog 100 UNIT/ML 10 ML VIAL 50 UNIT SUBCUT (08:31)
[2024-07-07] MEDS: Nicotine 21 MG PATCH.TD24 TRANSDERMA (08:31)
[2024-07-07] MEDS: QUEtiapine Fumarate 200 MG TABLET PO (08:32)
[2024-07-07] MEDS: Amoxicillin 500 MG CAPSULE PO (08:32)
[2024-07-07] MEDS: Famotidine 20 MG TABLET PO (08:32)
[2024-07-07] MEDS: Acamprosate Calcium 333 MG TABLET.DR 666 MG PO (08:32)
[2024-07-07] MEDS: levETIRAcetam 500 MG TABLET PO (08:32)
[2024-07-07] MEDS: FLUoxetine HCl 20 MG CAPSULE 60 MG PO (08:32)
[2024-07-07] MEDS: ARIPiprazole 10 MG TABLET PO (08:32)
[2024-07-07] MEDS: metFORMIN HCl ER 500 MG TAB.ER.24H 1000 MG PO (08:32)
[2024-07-07 08:33] VITALS: BP 152/87
[2024-07-07] MEDS: cloNIDine HCL 0.2 MG TABLET PO (08:33)
[2024-07-07] MEDS: Thiamine HCL 100 MG TABLET PO (08:33)
[2024-07-07] MEDS: Gabapentin 600 MG TABLET PO (08:33)
[2024-07-07 08:46] LABS: Glucose, Whole Blood 258 mg/dL (60-115)
[2024-07-07] MEDS: Insulin Lispro 100 UNIT/ML 3 ML VIAL SUBCUT (08:50)
--- NOTE | 2024-07-07 17:43 | PM.PSYDC ---
DS: Providers Provider Date of Service: 07/07/24 Date of admission: 07/02/24 19:56 Date of discharge: 07/07/24 Primary care physician: Unknown Physician Admitting clinician: Gloria Ramirez Attending physician on admission: Gloria Ramirez Consults: 07/02/24 21:05 Consult to Hospitalist Routine Comment: Consulting Provider: Hospitalist Reason For Exam: medical H&P Attending physician on discharge: Walt Ingram Discharging clinician: Gloria Ramirez DS: Diagnosis Discharge Diagnosis (1) PTSD (post-traumatic stress disorder): Status: Acute (2) Recurrent major depression: Status: Acute (3) Alcohol use disorder, severe, dependence: Status: Acute DS: Medications Discharge Medications Home Medications: Home Medications ?Medication ?Instructions ?Recorded ?Confirmed acetaminophen 325 mg tablet 650 mg PO PRN Pain (Scale Score 07/02/24 1-3) ibuprofen 800 mg tablet 800 mg PO TID 07/02/24 07/02/24 Previous Rx's ?Medication ?Instructions ?Recorded acamprosate 333 mg tablet,delayed 666 mg (2 x 333 mg) PO TID #180 07/06/24 release tabs amoxicillin 500 mg capsule 500 mg PO TID #10 caps 07/06/24 aripiprazole 10 mg tablet 10 mg PO DAILY #30 tabs 07/06/24 clonidine HCl 0.2 mg tablet 0.2 mg PO BID #60 tabs 07/06/24 doxepin 25 mg capsule 75 mg (3 x 25 mg) PO BEDTIME #21 07/06/24 caps famotidine 20 mg tablet 20 mg PO BID #60 tabs 07/06/24 fluoxetine 20 mg capsule 60 mg (3 x 20 mg) PO DAILY 07/06/24 depressive disorder #90 caps gabapentin 600 mg tablet 600 mg PO TID #21 tabs 07/06/24 hydroxyzine HCl 25 mg tablet 25 mg PO Q8H PRN Anxiety #15 tabs 07/06/24 insulin glargine 100 unit/mL 20 unit (0.2 mL) subcut BEDTIME 07/06/24 subcutaneous solution (Lantus #140 mL U-100 Insulin) insulin glargine 100 unit/mL 50 unit (0.5 mL) subcut DAILY #350 09/09/24 subcutaneous solution (Lantus mL U-100 Insulin) levetiracetam 500 mg tablet 500 mg PO BID #60 tabs 07/06/24 melatonin 3 mg tablet 3 mg PO BEDTIME insomnia #30 tabs 07/06/24 metformin 500 mg tablet,extended 1,000 mg (2 x 500 mg) PO BIDWM 07/06/24 release 24 hr #120 tabs nicotine 21 mg/24 hr daily 21 mg transdermal DAILY #30 ea 07/06/24 transdermal patch omeprazole 20 mg capsule,delayed 20 mg PO BID@0630,1630 #60 caps 07/06/24 release quetiapine 200 mg tablet 200 mg PO DAILY #30 tabs 07/06/24 quetiapine 400 mg tablet 400 mg PO BEDTIME #30 tabs 07/06/24 thiamine HCl (vitamin B1) 100 mg 100 mg PO DAILY #30 tabs 07/06/24 tablet (Vitamin B-1) thiamine mononitrate (vit B1) 100 100 mg PO DAILY #30 tabs 07/06/24 mg tablet trazodone 100 mg tablet 200 mg (2 x 100 mg) PO BEDTIME PRN 07/06/24 insomnia #30 tabs zolpidem 5 mg tablet 5 mg PO BEDTIME #10 tabs 07/06/24 Mental Status Exam Mental Status Exam Patient Appearance: Appropriate Patient Orientation: Person, Place, Time and Situation Level of Consciousness: Alert Patient Behavior: Talkative, Cooperative and Good Eye Contact Mood Description: Appropriate Affect Description: Appropriate Patient Cognition Impaired: No Ability to Follow Directions: Good Speech Pattern: Spontaneous Speech Memory Description: Episodic Impaired Hallucinations: None Delusions: Not Present Thought Process: Goal Oriented Thought Content: positive for Goal Oriented Depressive Symptoms: Thoughts of /Suicide (denies) Judgement: Good Data Data Completed and Pending Completed studies during hospitalization [Text1]: 07/03/24 07/03/24 07/03/24 07:40 12:35 17:13 Sodium 134 L Potassium 4.4 Chloride 101 Carbon Dioxide 24 Anion Gap 13 BUN 8 L Creatinine 0.83 Estim Creat Clear Calc 154.9 Estimated GFR > 60 POC Glucose 212 H 416 H* Random Glucose Fasting Glucose 350 H* Estimat Average Glucose 315 Hemoglobin A1c % 12.6 H Calcium 9.6 D Magnesium 2.0 Total Bilirubin 0.3 AST 35 ALT 65 H Alkaline Phosphatase 122 H Total Protein 7.4 Albumin 4.1 Triglycerides 141 Cholesterol 210 H LDL Cholesterol, Calc 136 H HDL Cholesterol 46 Vitamin B12 777 Folate 12.4 TSH 1.00 07/03/24 07/04/24 07/04/24 20:36 07:31 07:44 Sodium 134 L Potassium 4.3 Chloride 100 Carbon Dioxide 24 Anion Gap 14 BUN 9 Creatinine 0.82 Estim Creat Clear Calc 156.8 Estimated GFR > 60 POC Glucose 388 H* 310 H Random Glucose 296 H Fasting Glucose Estimat Average Glucose Hemoglobin A1c % Calcium 9.7 Magnesium Total Bilirubin AST ALT Alkaline Phosphatase Total Protein Albumin Triglycerides Cholesterol LDL Cholesterol, Calc HDL Cholesterol Vitamin B12 Folate [facility] 07/04/24 07/04/24 07/04/24 11:45 17:17 20:45 Sodium Potassium Chloride Carbon Dioxide Anion Gap BUN Creatinine Estim Creat Clear Calc Estimated GFR POC Glucose 291 H 365 H* 494 H* Random Glucose Fasting Glucose Estimat Average Glucose Hemoglobin A1c % Calcium Magnesium Total Bilirubin AST ALT Alkaline Phosphatase Total Protein Albumin Triglycerides Cholesterol LDL Cholesterol, Calc HDL Cholesterol Vitamin B12 Folate [facility] 07/04/24 07/05/24 07/05/24 22:07 07:18 11:52 Sodium Potassium Chloride Carbon Dioxide Anion Gap BUN Creatinine Estim Creat Clear Calc Estimated GFR POC Glucose 417 H* 284 H 317 H Random Glucose Fasting Glucose Estimat Average Glucose Hemoglobin A1c % Calcium Magnesium Total Bilirubin AST ALT Alkaline Phosphatase Total Protein Albumin Triglycerides Cholesterol LDL Cholesterol, Calc HDL Cholesterol Vitamin B12 Folate [facility] 07/05/24 07/05/24 07/06/24 17:06 20:21 08:22 Sodium Potassium Chloride Carbon Dioxide Anion Gap BUN Creatinine Estim Creat Clear Calc Estimated GFR POC Glucose 356 H* 291 H 233 H Random Glucose Fasting Glucose Estimat Average Glucose Hemoglobin A1c % Calcium Magnesium Total Bilirubin AST ALT Alkaline Phosphatase Total Protein Albumin Triglycerides Cholesterol LDL Cholesterol, Calc HDL Cholesterol Vitamin B12 Folate [facility] 07/06/24 07/06/24 07/06/24 12:24 17:46 20:19 Sodium Potassium Chloride Carbon Dioxide Anion Gap BUN Creatinine Estim Creat Clear Calc Estimated GFR POC Glucose 256 H 324 H 332 H Random Glucose Fasting Glucose Estimat Average Glucose Hemoglobin A1c % Calcium Magnesium Total Bilirubin AST ALT Alkaline Phosphatase Total Protein Albumin Triglycerides Cholesterol LDL Cholesterol, Calc HDL Cholesterol Vitamin B12 Folate [facility] 07/07/24 08:30 Sodium Potassium Chloride Carbon Dioxide Anion Gap BUN Creatinine Estim Creat Clear Calc Estimated GFR POC Glucose 258 H Random Glucose Fasting Glucose Estimat Average Glucose Hemoglobin A1c % Calcium Magnesium Total Bilirubin AST ALT Alkaline Phosphatase Total Protein Albumin Triglycerides Cholesterol LDL Cholesterol, Calc HDL Cholesterol Vitamin B12 Folate TSH DS: Summary Hospital Course Hospital Course: Admission to adult psychiatry in transfer from [facility] for exacerbation of recurrent major depression, alcohol use disorder, PTSD, DM, Seizure Disorder, after having a seizure in their parking lot and expressing SI. Pt reports having just completed a seven week stay with [facility] and YUDITH Ramirez. He signed a three day notice of intent on admit. Medications were evaluated and adjusted. Pt participated in the milieu and attended groups. Pt's mother was supportive and involved in his care. She agreed to have pt live at her home upon discharge. She was diligent in reviewing medications with him and the team, and will assist him with compliance. Pt will attend out patient therapy and medication mgt with [facility]. He will call and or return as needed. Status at Discharge Functional status at discharge: independent ambulation Overall status at discharge: patient is back to baseline Time Spent with Patient Time attestation: Total time managing care of this patient today ____ minutes. Time spent: Less than 30 minutes Discharge Plan Discharge Anticipated Discharge Date/Time: 07/07/24 23:00 Patient Disposition: Home, Self-Care Discharge Diagnosis: Recurrent Major Depression PTSD Alcohol Use Disorder, Severe, Dependence Referrals: [facility] Elio Patterson [Other] - 07/14/24 1:00 pm (I am also making a request for anger/mood management support groups. ) [facility] Psychiatry with Dr. Hubbard [Other] - 09/08/24 3:00 pm (I have spoken with Catarina and made a request for doctor to bridge pt until next appt. She will follow up with a request to the doctor. ) Karen Lemus, SANDI, [employer] [Nurse Practitioner] - 1 Week (office will call patient with follow-up appointment.) Discharge Medications: New amoxicillin 500 mg Capsule 500 mg PO TID Qty: 10 0RF doxepin 25 mg Capsule 75 mg PO BEDTIME Qty: 21 2RF levetiracetam 500 mg Tablet 500 mg PO BID Qty: 60 0RF nicotine 21 mg/24 hr Patch 24 Hour 21 mg transdermal DAILY Qty: 30 0RF hydroxyzine HCl 25 mg Tablet 25 mg PO Q8H PRN (Reason: Anxiety) Qty: 15 0RF insulin glargine [Lantus U-100 Insulin] 100 unit/mL Solution 50 unit subcut DAILY Qty: 350 2RF insulin glargine [Lantus U-100 Insulin] 100 unit/mL Solution 20 unit subcut BEDTIME Qty: 140 2RF omeprazole 20 mg Capsule,Delayed Release(Dr/Ec) 20 mg PO BID@0630,1630 Qty: 60 0RF zolpidem 5 mg Tablet 5 mg PO BEDTIME Qty: 10 0RF metformin 500 mg Tablet Extended Release 24 Hr 1,000 mg PO BIDWM Qty: 120 0RF thiamine mononitrate (vit B1) 100 mg Tablet 100 mg PO DAILY Qty: 30 0RF Continued acetaminophen 325 mg tablet 650 mg PO PRN (Reason: Pain (Scale Score 1-3)) ibuprofen 800 mg tablet 800 mg PO TID gabapentin 600 mg tablet 600 mg PO TID Qty: 21 3RF quetiapine 200 mg tablet 200 mg PO DAILY Qty: 30 0RF thiamine HCl (vitamin B1) [Vitamin B-1] 100 mg tablet 100 mg PO DAILY Qty: 30 0RF melatonin 3 mg tablet 3 mg PO BEDTIME Qty: 30 0RF clonidine HCl 0.2 mg tablet 0.2 mg PO BID Qty: 60 0RF famotidine 20 mg tablet 20 mg PO BID Qty: 60 0RF trazodone 100 mg tablet 200 mg PO BEDTIME PRN (Reason: insomnia) Qty: 30 0RF fluoxetine 20 mg capsule 60 mg PO DAILY Qty: 90 0RF aripiprazole 10 mg tablet 10 mg PO DAILY Qty: 30 0RF acamprosate 333 mg tablet,delayed release (DR/EC) 666 mg PO TID Qty: 180 0RF quetiapine 400 mg tablet 400 mg PO BEDTIME Qty: 30 0RF Discontinued amoxicillin 500 mg capsule 500 mg PO Q8H insulin glargine [Lantus U-100 Insulin] 100 unit/mL solution subcut doxepin 25 mg capsule 125 mg PO BEDTIME levetiracetam 500 mg tablet 500 mg PO BID PRN (Reason: seizures) metformin 1,000 mg tablet 1,000 mg PO BID omeprazole 20 mg capsule,delayed release(DR/EC) 20 mg PO BID zolpidem 5 mg tablet 5 mg PO BEDTIME insulin lispro 100 unit/mL insulin pen subcut Discharge Orders: Discharge Order (Routine); Ordered 07/07/24 Ordered By: Gloria Ramirez Diet: Diabetic diet Activity on Discharge: As tolerated Stand Alone Forms: Patient Portal Discharge page, Community Support Print Language: Estonian Care Plan Goals: Abstain from alcohol Mood and Behavioral Stabilization Health Concerns: Abstain from alcohol Mood and Behavioral Stabilization Plan of Treatment: Attend scheduled appointments Take medications as directed Mike Romero PCP office will call you for your appointments Assessment: Three day notice of intent Denies SI/HI/AH/VH No sx of psychosis, nery Pt will live with his mother, treatment plan has been reviewed with both pt and mother. Discharge Date/Time: 07/07/24 11:00
== END 2024-07-07 11:00 | disposition home or self-care (01) | DRG 751 ==
PROVIDERS: Social Worker; Admitting Provider Psychiatry & Neurology Psychiatry; Visit Provider Clinical Nurse Specialist Psychiatric/Mental Health, Adult
DX: F33.9 Major depressive disorder, recurrent, unspecified (principal); R45.851 Suicidal ideations; G40.909 Epilepsy, unspecified, not intractable, without status epilepticus; E11.8 Type 2 diabetes mellitus with unspecified complications; F10.20 Alcohol dependence, uncomplicated; K21.9 Gastro-esophageal reflux disease without esophagitis; F43.10 Post-traumatic stress disorder, unspecified; F17.210 Nicotine dependence, cigarettes, uncomplicated; Z91.51 Personal history of suicidal behavior; Z71.6 Tobacco abuse counseling; Z79.4 Long term (current) use of insulin; Z79.84 Long term (current) use of oral hypoglycemic drugs; Z79.899 Other long term (current) drug therapy
CPT/HCPCS: 36415; 80048; 80053; 80061; 82607; 82746; 82947; 83036; 83735; 84443

== ENCOUNTER → 2024-07-02 19:56 | Outpatient (BNV) | payer MEDICAID, SELFPAY | PROVIDERS: Admitting Provider Psychiatry & Neurology Psychiatry; Visit Provider Student in an Organized Health Care Education/Training Program | DX: Z00.8 Encounter for other general examination (principal) | CPT/HCPCS: 99499 ==

== ENCOUNTER → 2024-07-02 19:56 | Outpatient (BNV) | payer OTHER, SELFPAY | PROVIDERS: Admitting Provider Psychiatry & Neurology Psychiatry; Visit Provider Psychiatry & Neurology Psychiatry | DX: F33.2 Major depressive disorder, recurrent severe without psychotic features (principal); F10.20 Alcohol dependence, uncomplicated; F43.11 Post-traumatic stress disorder, acute | CPT/HCPCS: 99231; 99232 ==

== ENCOUNTER 2024-08-18 12:03 | Inpatient (IN) | payer MEDICARE, MEDICAID, SELFPAY ==
[2024-08-18 12:17] VITALS: BP 124/70; BP 134/82; PULSE 118; PULSE 119; RESP 16; TEMP 36.8; O2SAT 95; O2SAT 96; BMI 35.3
[2024-08-18 12:27] VITALS: RESP 16
[2024-08-18 12:49] LABS: MANUAL DIFF FLAG NO
[2024-08-18 12:50] LABS: Basophils Absolute Auto 0.1 X10*3/uL (0.0-0.2); Basophils Percent Auto 0.6 % (0-2); Eosinophils Absolute Auto 0.1 X10*3/uL (0.0-0.4); Eosinophils Percent Auto 0.7 % (0-4); Hematocrit 46.3 % (42.0-52.0); Hemoglobin 16.1 g/dl (14.0-18.0); Imm Gran Abs Auto 0.02 X10*3/uL (0.00-0.03); Imm Gran Pct Auto 0.2 % (0.0-0.4); Mean Corpuscular HGB Conc 34.8 g/dl (31.0-36.0); Mean Corpuscular Volume 80.7 fL (80.0-98.0); Mean Platelet Volume 9.5 fL (9.4-12.4); Monocytes Absolute Auto 0.5 X10*3/uL (0.1-1.2); Monocytes Percent Auto 6.3 % (2-11); Neutrophils Absolute Auto 5.5 x10*3/uL (2.0-8.3); Neutrophils Percent Auto 68.2 % (45-73); Platelet Count 334 X10*3/uL (160-400); Red Blood Count 5.74 X10*6/uL (4.60-5.80); Red Cell Distribution Width 14.9 % (11.0-16.0); White Blood Count 8.1 X10*3/uL (4.8-10.8)
[2024-08-18 12:53] LABS: Appearance Urine Clear; Color Urine Yellow; Glucose Urine UA >=1000 mg/dL (Negative); Leukocyte Esterase Urine Negative (Negative); Nitrite Urine Negative (Negative); UMIC TRIGGER UACC YES; Urine Blood Negative (Negative); Urine Ketones Trace mg/dL (Negative); Urine Protein Negative (Neg-Trace)
[2024-08-18] MEDS: LORazepam 1 MG TABLET 2 MG PO (12:57)
[2024-08-18 13:01] LABS: Amphetamine Screen Urine Not Detected (Not Detect); Barbiturates, Urine Not Detected (Not Detect); Benzodiazepines Screen Urine Not Detected (Not Detect); Buprenorphine Scr Not Detected (Not Detect); Cannabinoid Screen Urine Not Detected (Not Detect); Cocaine Screen Urine Not Detected (Not Detect); Fentanyl, urine Not Detected (Not Detect); Methadone Screen, Urine Not Detected (Not Detect); Opiate Screen Urine Not Detected (Not Detect); Oxycodone Screen Urine Not Detected (Not Detect); Phencyclidine Screen Urine Not Detected (Not Detect)
[2024-08-18 13:05] LABS: Bacteria Urine None Seen (None Seen); Hyaline Casts Urine 0-2 /LPF (0-2); RBC Urine 0-2 /HPF (0-2); Squamous Epithelial Cell Urine 0-2 /HPF (0-2); WBC Urine 0-5 /HPF (0-5)
[2024-08-18 13:06] LABS: Alanine Aminotransferase 102 U/L (0-40); Albumin Level 4.2 g/dL (3.5-5.0); Alkaline Phosphatase 125 U/L (39-117); Anion Gap 19 (12-20); Aspartate Amino Transferase 55 U/L (5-37); Bilirubin Total 0.4 mg/dL (0.0-1.0); Blood Urea Nitrogen 4 mg/dL (9-16); Calcium 9.2 mg/dL (8.4-10.2); Carbon Dioxide 22 mmol/L (22-29); Chloride 97 mmol/L (96-108); Creatinine Clr Calc Pharmacy 146.6; Estimated Glomerular Filt Rate > 60; Ethanol 219 mg/dL; Glucose Random 423 mg/dL (60-115); Potassium 4.4 mmol/L (3.3-5.1); Sodium 134 mmol/L (135-145); Total Protein 7.6 g/dL (6.5-8.0)
--- NOTE | 2024-08-18 13:11 | ED.PSYCH ---
HPI - Psych General Chief Complaint: Psychiatric Symptoms Stated Complaint: SI W/PLAN,LUE LAC, ETOH USE PER EMS Time Seen by Provider: 08/18/24 12:37 Source: patient and EMS Mode of arrival: EMS Limitations: no limitations History of Present Illness ED Provider: Astrid Walden PA-C HPI Narrative: 32-year-old male with history of PTSD, depression, alcohol use disorder, diabetes on insulin, seizure disorder who presents to the ER for evaluation of increased alcohol intake and worsening depression with suicidal thoughts for the last 1 week after his girlfriend overdosing on drugs. He states the last week he has been very depressed, suicidal and not wanting to live anymore. He states he has been not taking his medications as directed due to depression. He was at the liquor store today where he was expressing suicidal thoughts with plans of drinking himself to or cutting himself. He states he was cutting his left upper extremity just to ?feel something. ? He states he has been drinking 20 tall boys per day. He reports history of alcohol withdrawal in the past. He states that is why he is on Keppra. He states he was recently admitted to the psych unit and it helped him. MD complaint: suicidal ideation and feels depressed Onset (ago): week(s) Duration: constant History of same: Yes Relieving factors: medication and therapy Exacerbating factors: alcohol Context: recent alcohol abuse, not taking psychiatric medications and significant life stressor Associated psychiatric symptoms: depression and suicidal ideation Associated symptoms: denies other symptoms Treatments prior to arrival: placed on mental health hold If self harm: admits thoughts of self harm and has plan Related Data Home Medications ?Medication ?Instructions ?Recorded ?Confirmed gabapentin 300 mg capsule 600 mg PO TID 08/18/24 08/18/24 hydroxyzine HCl 25 mg tablet 50 mg PO Q8H PRN Anxiety 08/18/24 08/18/24 Previous Rx's ?Medication ?Instructions ?Recorded clonidine HCl 0.2 mg tablet 0.2 mg PO BID #60 tabs 07/06/24 fluoxetine 20 mg capsule 60 mg (3 x 20 mg) PO DAILY 07/06/24 depressive disorder #90 caps insulin glargine 100 unit/mL 20 unit (0.2 mL) subcut BEDTIME 07/06/24 subcutaneous solution (Lantus #140 mL U-100 Insulin) insulin glargine 100 unit/mL 50 unit (0.5 mL) subcut DAILY #350 07/06/24 subcutaneous solution (Lantus mL U-100 Insulin) levetiracetam 500 mg tablet 500 mg PO BID #60 tabs 07/06/24 metformin 500 mg tablet,extended 1,000 mg (2 x 500 mg) PO BIDWM 07/06/24 release 24 hr #120 tabs quetiapine 200 mg tablet 200 mg PO DAILY #30 tabs 07/06/24 quetiapine 400 mg tablet 400 mg PO BEDTIME #30 tabs 07/06/24 trazodone 100 mg tablet 200 mg (2 x 100 mg) PO BEDTIME PRN 07/06/24 insomnia #30 tabs Allergies Allergy/AdvReac Type Severity Reaction Status Date / Time seafood Allergy Anaphylaxis Verified 08/18/24 12:19 Review of Systems Review of Systems: Yes all other systems are reviewed and are negative [facility] Past Medical History Medical History Recurrent major depression PTSD (post-traumatic stress disorder) Alcohol use disorder, severe, dependence Diabetes mellitus, type 2 Social History Social History Household Members: Friend(s) Housing: House Do you presently have visiting nurse or other home services: No Alcohol intake: current Alcohol intake frequency: 3 or more drinks per day Alcohol type: beer and hard liquor Patient Tobacco Use Status: Current everyday Tobacco user Smoked in Last 30 Days: Yes e-Cigarette/Vaping Use: Currently Using Second Hand Smoke Exposure: No Use of substances other than those prescribed or required for medical reasons: No Advance Directives: No Advance Directives Information Provided: Yes Do you have a plan to hurt others: No Plan service: No Sexual orientation: Straight/Heterosexual Physical Exam Vital Signs: Vital Signs: Last Vital Signs Temp 98.2 F 08/18/24 12:17 Pulse 119 H 08/18/24 12:17 Resp 16 08/18/24 12:27 BP 134/82 08/18/24 12:17 Pulse Ox 95 08/18/24 12:17 O2 Del Method Room Air 08/18/24 12:17 BMI result Body Mass Index 35.3 Appearance: Alert. Oriented X3. No acute distress. Head: normocephalic, atraumatic. Eyes: Pupils equal, round and reactive to light. ENT: Pharynx normal. No tonsillar swelling or exudate. Neck: Normal inspection. Neck supple. CVS: Normal heart rate and rhythm. Pulses normal. Respiratory: No respiratory distress. Breath sounds normal. Abdomen: Soft and nontender. +BS x4 Skin: Skin warm and dry. Normal skin color. Normal skin turgor. No rashes. Extremities: No lower extremity edema. No joint swelling. Superficial lacerations to the dorsum of the left upper extremity without active bleeding Neuro/psych: Oriented X 3. No motor deficit. No sensory deficit. CN II-XII intact. Normal speech and cognition. Mood is depressed, makes eye contact and answers questions appropriately Course Reevaluation(s) Reevaluation #1: Physician observation started at 13:34. Patient placed in physician observation because patient is awaiting CARE team evaluation for the possible need of inpatient psych admission. At the time observation was started patient's vital signs were stable. Is hyperglycemic, SQ insulin started. He did not take his Lantus this morning. Patient is alert and oriented. Neuro exam is non-focal. CV: RRR and lungs are clear. Will continue to monitor. Time: 13:34 Medications Administered Discontinued Medications Generic Name Dose Route Start Last Admin Trade Name Aubreyq PRN Reason Stop Dose Admin Lorazepam 2 mg 08/18/24 12:42 08/18/24 12:57 Lorazepam 1 Mg Tablet PO 08/18/24 12:43 2 mg ONCE ONE Administration Medical Decision Making Medical Decision Making MDM Narrative: 40-year-old male with history of depression, alcohol use disorder, PTSD, diabetes on high dose insulin, seizure disorder who presents to the ER for evaluation of suicidal ideation, increased alcohol intake for the last 1 week after his girlfriend of an overdose. He arrives to the ER, awake, alert, oriented and appropriate. His alcohol level is elevated to 100s. Does not appear to be intoxicated. He denies other drug use. He is wanting admission to the hospital for psychiatric help. He reports history of alcohol withdrawal seizures. Will check CIWA scores. Sugar is 400 if any evidence of DKA. Subcu insulin regimen ordered. Patient awaiting care team for evaluation and possible inpatient psych care Differential Diagnosis Differential Diagnoses: The differential diagnosis associated with the presentation includes substance induced mood disorder, acute psychosis, schizophrenia, schizoaffective disorder, PTSD, bipolar disorder, major depression with psychotic features Admission/Observation Consideration of admission/observation: Escalation of care including admission/observation considered Lab Data MDM Lab Attestation statement: I reviewed the patient's lab results. Hyperglycemia without anion gap 08/18/24 12:43 08/18/24 12:43 Labs: Lab Results 08/18/24 Range/Units 12:43 WBC 8.1 (4.8-10.8) X10*3/uL RBC 5.74 (4.60-5.80) X10*6/uL Hgb 16.1 (14.0-18.0) g/dl Hct 46.3 (42.0-52.0) % MCV 80.7 (80.0-98.0) fL MCH 28.0 (27.0-33.0) pg MCHC 34.8 (31.0-36.0) g/dl RDW 14.9 (11.0-16.0) % Plt Count 334 (160-400) X10*3/uL MPV 9.5 (9.4-12.4) fL Immature Gran % (Auto) 0.2 (0.0-0.4) % Neut % (Auto) 68.2 (45-73) % Lymph % (Auto) 24.0 (20-40) % Phillips % (Auto) 6.3 (2-11) % Eos % (Auto) 0.7 (0-4) % Baso % (Auto) 0.6 (0-2) % Lymph # (Auto) 2.0 (1.2-4.9) X10*3/uL Phillips # (Auto) 0.5 (0.1-1.2) X10*3/uL Eos # (Auto) 0.1 (0.0-0.4) X10*3/uL Baso # (Auto) 0.1 (0.0-0.2) X10*3/uL Abs Immat Gran (auto) 0.02 (0.00-0.03) X10*3/uL Absolute Neuts (auto) 5.5 (2.0-8.3) x10*3/uL Absolute Nucleated RBC 0.000 (0.0-0.012) X10*3/uL Nucleated RBC % (auto) 0.0 (0.0-0.2) /100WBC Sodium 134 L (135-145) mmol/L Potassium 4.4 (3.3-5.1) mmol/L Chloride 97 (96-108) mmol/L Carbon Dioxide 22 (22-29) mmol/L Anion Gap 19 (12-20) BUN 4 L (9-16) mg/dL Creatinine 0.88 (0.5-1.4) mg/dL Estim Creat Clear Calc 146.6 Estimated GFR > 60 Random Glucose 423 H* (60-115) mg/dL Calcium 9.2 (8.4-10.2) mg/dL Total Bilirubin 0.4 (0.0-1.0) mg/dL AST 55 H (5-37) U/L ALT 102 H (0-40) U/L Alkaline Phosphatase 125 H (39-117) U/L Total Protein 7.6 (6.5-8.0) g/dL Albumin 4.2 (3.5-5.0) g/dL Vitamin B1 Cancelled Urine Color Yellow Urine Appearance Clear Urine pH 6.0 (5.0-9.0) Ur Specific [place] 1.010 (1.005-1.025) Urine Protein Negative (Neg-Trace) mg/dL Urine Glucose (UA) >=1000 H (Negative) mg/dL Urine Ketones Trace (Negative) mg/dL Urine Blood Negative (Negative) Urine Nitrite Negative (Negative) Ur Leukocyte Esterase Negative (Negative) Urine RBC 0-2 (0-2) /HPF Urine WBC 0-5 (0-5) /HPF Ur Squamous Epith Cells 0-2 (0-2) /HPF Urine Bacteria None Seen (None Seen) Hyaline Casts 0-2 (0-2) /LPF Urine Opiates Screen Not Detected (Not Detect) Ur Buprenorphine Scrn Not Detected (Not Detect) ng/mL Ur Oxycodone Screen Not Detected (Not Detect) ng/mL Urine Methadone Screen Not Detected (Not Detect) ng/mL Urine Fentanyl Screen Not Detected (Not Detect) Ur Barbiturates Screen Not Detected (Not Detect) Ur Phencyclidine Scrn Not Detected (Not Detect) Ur Amphetamines Screen Not Detected (Not Detect) U Benzodiazepines Scrn Not Detected (Not Detect) Urine Cocaine Screen Not Detected (Not Detect) U Marijuana (THC) Screen Not Detected (Not Detect) Ethyl Alcohol 219 mg/dL Independent Historian Clinical information obtained from an independent historian. History obtained from or confirmed by: EMS External Record Review External record reviewed: Inpatient record, Outpatient record, Prior outpatient labs and Prior outpatient radiology Prescription Management I considered prescription management with: Other (Insulin, antipsychotic) Chronic Conditions Patient?s care impacted by: Diabetes and Other (PTSD, depression) Social Determinants Patient?s care significantly limited by Social Determinants of Health including: Alcoholism and drug addiction in family, Problems related to primary support group and Other Social Determinant of Health Critical Care Time Critical Care Time Critical Care Time: No Discharge Plan Discharge Clinical Impression: Alcohol use disorder, severe, dependence, Recurrent major depression, Hyperglycemia Patient Disposition: Still a Patient Prescriptions: No Action levetiracetam 500 mg Tablet 500 mg PO BID Qty: 60 0RF insulin glargine [Lantus U-100 Insulin] 100 unit/mL Solution 50 unit subcut DAILY Qty: 350 2RF insulin glargine [Lantus U-100 Insulin] 100 unit/mL Solution 20 unit subcut BEDTIME Qty: 140 2RF metformin 500 mg Tablet Extended Release 24 Hr 1,000 mg PO BIDWM Qty: 120 0RF quetiapine 200 mg tablet 200 mg PO DAILY Qty: 30 0RF clonidine HCl 0.2 mg tablet 0.2 mg PO BID Qty: 60 0RF trazodone 100 mg tablet 200 mg PO BEDTIME PRN (Reason: insomnia) Qty: 30 0RF fluoxetine 20 mg capsule 60 mg PO DAILY Qty: 90 0RF quetiapine 400 mg tablet 400 mg PO BEDTIME Qty: 30 0RF gabapentin 300 mg capsule 600 mg PO TID hydroxyzine HCl 25 mg tablet 50 mg PO Q8H PRN (Reason: Anxiety) Interventions: [place]-Suicide Risk Severity Scale Last Done: 08/18/24 12:35 Print Language: Macedonian
[2024-08-18 14:15] LABS: Glucose, Whole Blood 382 mg/dL (60-115)
[2024-08-18] MEDS: Insulin Lispro 100 UNIT/ML 3 ML VIAL 15 UNIT SUBCUT (14:21)
[2024-08-18 14:22] VITALS: BP 134/82
[2024-08-18] MEDS: QUEtiapine Fumarate 200 MG TABLET PO (14:22)
[2024-08-18] MEDS: FLUoxetine HCl 20 MG CAPSULE 60 MG PO (14:22)
[2024-08-18] MEDS: levETIRAcetam 500 MG TABLET PO ×2 (14:22→20:38)
[2024-08-18] MEDS: cloNIDine HCL 0.2 MG TABLET PO ×2 (14:22→20:38)
[2024-08-18] MEDS: Gabapentin 300 MG CAPSULE 600 MG PO ×2 (14:23→20:38)
[2024-08-18 14:30] VITALS: RESP 16
[2024-08-18 14:58] LABS: Glucose, Whole Blood 342 mg/dL (60-115)
--- NOTE | 2024-08-18 16:48 | PC.NURSE ---
Patient is calm and cooperative, offering no complaints, resting on bed in 4. Pt seen by CARE team, pending disposition.
--- NOTE | 2024-08-18 17:59 | PC.NURSE ---
RE: 1630 and 1700 medications awaiting dinner trays to evaluate insulin needs
[2024-08-18 18:07] LABS: Glucose, Whole Blood 248 mg/dL (60-115)
[2024-08-18] MEDS: metFORMIN HCl ER 500 MG TAB.ER.24H 1000 MG PO (18:09)
[2024-08-18] MEDS: Insulin Lispro 100 UNIT/ML 3 ML VIAL SUBCUT ×2 (18:09→20:38)
--- NOTE | 2024-08-18 18:30 | PC.NURSE ---
RE: med rec this RN completed med rec based on recent discharge paperwork from [facility]. Provider AFSANEH Rodriguez aware
--- NOTE | 2024-08-18 19:14 | PC.NURSE ---
patient appears to remaion at rest presently respirations are even and unlabored patient appears in no distress
[2024-08-18 20:31] VITALS: BP 130/86; PULSE 103; RESP 20; TEMP 37.2; O2SAT 97
[2024-08-18 20:38] VITALS: BP 130/86
[2024-08-18 20:38] LABS: Glucose, Whole Blood 275 mg/dL (60-115)
[2024-08-18] MEDS: LORazepam 1 MG TABLET PO (20:38)
[2024-08-18] MEDS: QUEtiapine Fumarate 400 MG TABLET PO (20:38)
[2024-08-18] MEDS: traZODone HCL 100 MG TABLET 200 MG PO (20:42)
--- NOTE | 2024-08-18 20:50 | PHA.MEDREC ---
Addendum entered by Kevon Colbert [facility] 08/18/24 21:00: med rec reviewed Original Note: Pharmacy Consult ? Medication Reconciliation Pharmacy reviewed med rec done by nursing. We got a copy of the Discharge list from [facility] and I noticed Clonidine 0.2mg was crossed out on the list but continued on the med rec. Also Humalog was on the list as well from [facility] but not added on the med rec and in claims it was filled 08/06 for 38 days. I went and spoke to patient about that and he was very adamant that he is still taking the Clonidine 0.2mg 1 BID even when I asked about [facility] he stated he never stopped taking it . Before I could even ask he confirmed he is still taking Humalog per a sliding scale three times a day with meals. He confirmed he is still taking Doxepin 50mg tabs only when needed at bedtime and has not had to take it in a bit per the patient. He also confirmed his Lantus and he states he is taking 60 units in the morning and hes been doing 60 units at bedtime instead of 70 units. He confirmed he took all his medications yesterday.
[2024-08-19] VITALS (7 sets, daily range): BP systolic 120–142; BP diastolic 72–94; PULSE 80–120; RESP 16–18; TEMP 36.6–37.2; O2SAT 94–98; BMI 34.9
[2024-08-19 07:15] LABS: Glucose, Whole Blood 253 mg/dL (60-115)
[2024-08-19] MEDS: Insulin Lispro 100 UNIT/ML 3 ML VIAL SUBCUT ×4 (07:28→21:47)
[2024-08-19] MEDS: metFORMIN HCl ER 500 MG TAB.ER.24H 1000 MG PO ×2 (07:55→17:07)
--- NOTE | 2024-08-19 08:04 | ECG_ITS ---
Test Reason : medical clearance Blood Pressure : / mmHG Vent. Rate : 094 BPM Atrial Rate : 094 BPM P-R Int : 154 ms QRS Dur : 090 ms QT Int : 408 ms P-R-T Axes : 063 013 033 degrees QTc Int : 510 ms Normal sinus rhythm Anterior infarct (cited on or before 21-NOV-2022) Prolonged QT Abnormal ECG When compared with ECG of 21-NOV-2022 19:37, Questionable change in initial forces of Anterior leads Referred By: Saida Hernandes Electronically Signed By:Milton Herman
[2024-08-19] MEDS: Gabapentin 300 MG CAPSULE 600 MG PO ×3 (08:08→21:47)
[2024-08-19] MEDS: QUEtiapine Fumarate 200 MG TABLET PO (08:09)
[2024-08-19] MEDS: FLUoxetine HCl 20 MG CAPSULE 60 MG PO (08:11)
[2024-08-19] MEDS: Folic Acid 1 MG TABLET PO (08:11)
[2024-08-19] MEDS: levETIRAcetam 500 MG TABLET PO ×2 (08:12→21:47)
[2024-08-19] MEDS: Insulin Glargine,Hum.rec.anlog 100 UNIT/ML 10 ML VIAL 50 UNIT SUBCUT (08:12)
[2024-08-19] MEDS: Thiamine HCL 100 MG TABLET PO (08:12)
[2024-08-19] MEDS: cloNIDine HCL 0.2 MG TABLET PO ×2 (08:13→21:47)
[2024-08-19] MEDS: Nicotine 21 MG PATCH.TD24 TRANSDERMA (08:14)
[2024-08-19] MEDS: hydrOXYzine HCL 50 MG TABLET PO ×2 (09:10→13:55)
[2024-08-19] MEDS: LORazepam 1 MG TABLET 2 MG PO ×2 (09:10→13:55)
[2024-08-19 09:17] LABS: Magnesium 1.7 mg/dL (1.6-2.6)
[2024-08-19] MEDS: Magnesium Oxide 400 MG TABLET 800 MG PO (09:44)
--- NOTE | 2024-08-19 12:38 | ECG_ITS ---
Test Reason : MEDICAL CLEARANCE Blood Pressure : / mmHG Vent. Rate : 087 BPM Atrial Rate : 087 BPM P-R Int : 154 ms QRS Dur : 096 ms QT Int : 410 ms P-R-T Axes : 061 012 022 degrees QTc Int : 493 ms Normal sinus rhythm Possible Anterior infarct (cited on or before 21-NOV-2022) Abnormal ECG When compared with ECG of 19-AUG-2024 08:15, No significant change was found Referred By: David Puga Electronically Signed By:Milton Herman
[2024-08-19 13:03] LABS: Glucose, Whole Blood 280 mg/dL (60-115)
[2024-08-19] MEDS: PHENobarbitaL 300 MG, PHENobarbitaL 60 MG 360 MG PO (14:51)
[2024-08-19 17:01] LABS: Glucose, Whole Blood 295 mg/dL (60-115)
--- NOTE | 2024-08-19 17:22 | PC.NURSE ---
Saulo was [place] to [facility] [place] 1615 [place] [facility] for treatment of mood disorder with etoh use disorder. ?Prior to ED visit pt verbalized SI with plan to drink until he dies and cut himself. Numerous healing superficial cuts are noted on left forearm Pt is alert, fully oriented, calm , pleasant and cooperative with admission process. Mood is depressed. Affect is anxious. Pt denies auditory, visual, tactile, and other hallucinations Thought Process linear and organized. He denies current ideation, plan or intent to harm self or others. Appetite is good with no recent wt loss or gain. Pt reports intermittent nausea. Sleep is poor without medications Focus is good. He reports drinking > 24 alcoholic drinks per day alf. CIWA in pod prior to admission was 25 and pt was placed on phenobarb taper. Medical Issues include IDDM with uncontrolled blood sugars.? Goal of admission is to get sober and stay sober. Safety Checks are q 15 minutes
[2024-08-19] MEDS: PHENOBARBITAL 267.5 MG PO ×2 (18:39→21:45)
[2024-08-19 21:20] LABS: Glucose, Whole Blood 238 mg/dL (60-115)
[2024-08-19] MEDS: traZODone HCL 100 MG TABLET 200 MG PO (21:46)
[2024-08-19] MEDS: Melatonin 3 MG TABLET 9 MG PO (21:46)
[2024-08-19] MEDS: Doxepin HCl 25 MG CAPSULE 50 MG PO (21:47)
[2024-08-19] MEDS: QUEtiapine Fumarate 400 MG TABLET PO (21:47)
[2024-08-20 07:00] VITALS: BMI 15.8
[2024-08-20 07:48] VITALS: BP 133/88; PULSE 89; RESP 14; TEMP 37; O2SAT 90
[2024-08-20 08:14] LABS: Glucose, Whole Blood 252 mg/dL (60-115)
[2024-08-20] MEDS: Nicotine 21 MG PATCH.TD24 TRANSDERMA (08:30)
[2024-08-20] MEDS: Gabapentin 300 MG CAPSULE 600 MG PO ×3 (08:31→20:49)
[2024-08-20] MEDS: levETIRAcetam 500 MG TABLET PO ×2 (08:31→20:49)
[2024-08-20] MEDS: cloNIDine HCL 0.2 MG TABLET PO ×2 (08:31→20:47)
[2024-08-20] MEDS: Folic Acid 1 MG TABLET PO (08:31)
[2024-08-20] MEDS: metFORMIN HCl ER 500 MG TAB.ER.24H 1000 MG PO ×2 (08:31→16:58)
[2024-08-20] MEDS: Thiamine HCL 100 MG TABLET PO (08:32)
[2024-08-20] MEDS: QUEtiapine Fumarate 200 MG TABLET PO (08:32)
[2024-08-20] MEDS: FLUoxetine HCl 20 MG CAPSULE 60 MG PO (08:32)
[2024-08-20] MEDS: PHENobarbitaL 30 MG TABLET 60 MG PO ×2 (08:32→20:47)
[2024-08-20] MEDS: Insulin Glargine,Hum.rec.anlog 100 UNIT/ML 10 ML VIAL 50 UNIT SUBCUT (08:34)
[2024-08-20] MEDS: Insulin Lispro 100 UNIT/ML 3 ML VIAL SUBCUT ×4 (08:42→20:48)
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
[2024-08-20] MEDS: hydrOXYzine HCL 50 MG TABLET PO ×2 (11:37→20:48)
[2024-08-20 11:45] LABS: Glucose, Whole Blood 278 mg/dL (60-115)
[2024-08-20] MEDS: Loperamide HCl 2 MG CAPSULE PO (15:21)
[2024-08-20 16:45] LABS: Glucose, Whole Blood 271 mg/dL (60-115)
[2024-08-20 19:49] VITALS: BP 132/88; PULSE 103; RESP 16; TEMP 36.9; O2SAT 97
[2024-08-20 20:42] LABS: Glucose, Whole Blood 261 mg/dL (60-115)
[2024-08-20] MEDS: QUEtiapine Fumarate 400 MG TABLET PO (20:49)
[2024-08-20] MEDS: Doxepin HCl 25 MG CAPSULE 50 MG PO (20:49)
[2024-08-20] MEDS: traZODone HCL 100 MG TABLET 200 MG PO (20:57)
[2024-08-20] MEDS: Melatonin 3 MG TABLET 9 MG PO (21:02)
[2024-08-20] MEDS: Ondansetron ODT 4 MG TAB.RAPDIS TRANSLINGU (21:02)
--- NOTE | 2024-08-21 | ECG_ITS ---
Test Reason : QTC check Blood Pressure : / mmHG Vent. Rate : 077 BPM Atrial Rate : 077 BPM P-R Int : 156 ms QRS Dur : 094 ms QT Int : 398 ms P-R-T Axes : 051 021 023 degrees QTc Int : 450 ms Normal sinus rhythm Normal ECG When compared with ECG of 19-AUG-2024 12:40, Borderline criteria for Anterior infarct are no longer Present Referred By: Marissa Springer Electronically Signed By:Milton Herman
[2024-08-21 07:56] LABS: Glucose, Whole Blood 234 mg/dL (60-115)
[2024-08-21] MEDS: Nicotine 21 MG PATCH.TD24 TRANSDERMA (08:27)
[2024-08-21] MEDS: FLUoxetine HCl 20 MG CAPSULE 60 MG PO (08:28)
[2024-08-21] MEDS: QUEtiapine Fumarate 200 MG TABLET PO (08:29)
[2024-08-21] MEDS: Gabapentin 300 MG CAPSULE 600 MG PO ×3 (08:29→22:25)
[2024-08-21] MEDS: Folic Acid 1 MG TABLET PO (08:29)
[2024-08-21] MEDS: PHENobarbitaL 30 MG TABLET 60 MG PO ×2 (08:29→20:40)
[2024-08-21] MEDS: Thiamine HCL 100 MG TABLET PO (08:29)
[2024-08-21] MEDS: levETIRAcetam 500 MG TABLET PO ×2 (08:29→22:24)
[2024-08-21] MEDS: Insulin Glargine,Hum.rec.anlog 100 UNIT/ML 10 ML VIAL 50 UNIT SUBCUT (08:29)
[2024-08-21] MEDS: metFORMIN HCl ER 500 MG TAB.ER.24H 1000 MG PO ×2 (08:29→16:58)
[2024-08-21] MEDS: Insulin Lispro 100 UNIT/ML 3 ML VIAL SUBCUT ×4 (08:30→20:40)
[2024-08-21 08:32] VITALS: BP 132/84
[2024-08-21] MEDS: cloNIDine HCL 0.2 MG TABLET PO ×2 (08:32→20:40)
[2024-08-21 08:38] VITALS: BP 132/84; PULSE 95; RESP 18; TEMP 36.9; O2SAT 93
--- NOTE | 2024-08-21 09:19 | HO.PSYCHPN ---
Subjective Subjective Date of Service: 08/21/24 Reason For Visit: Crisis Subjective Notes: Conditional Voluntary Interim History: Reviewed with Dr. Ingram. Active on unit, social with peers. Pt reports withdrawal symptoms are improving. future oriented. focused on sobriety. Pt reports he plans on attending [facility] on August 28, 2024. He continues to report some anxiety and depression. He reports some difficulty staying asleep but denies any issue falling asleep. Per nursing, pt slept through the night. Medication Compliance: Yes Side effects from medications: No Attending Groups: Yes Review of Systems Constitutional: Reports as per HPI Eyes: Reports as per HPI Reports as per HPI Cardiovascular: Reports as per HPI Respiratory: Reports as per HPI Gastrointestinal: Reports as per HPI Genitourinary: Reports as per HPI Musculoskeletal: Reports as per HPI Skin/Breast: Reports as per HPI Reports as per HPI Psychiatric: Reports as per HPI Endocrine: Reports as per HPI Hematologic/Lymphatic: Reports as per HPI Allergic/Immunologic: Reports as per HPI Mental Status Exam Mental Status Exam Narrative: Pt is alert and oriented; behavior is cooperative and calm; dressed in casual attire; mood is described as depressed ; eye contact appropriate; Speech is normal rate, volume and not pressured; thought process is organized and goal directed; Thought content is on tx; otherwise pertinent to relevant topics and without any delusional content, paranoid ideations or grandiosity; denies SI/HI/VH/AH. Diagnostics Vital Signs (24Hr): Vital Signs - 24 hr 08/20/24 19:49 08/21/24 08:32 08/21/24 08:38 Temperature 98.5 F 98.4 F Pulse Rate 103 H 95 Respiratory Rate 16 18 Blood Pressure 132/88 132/84 132/84 Pulse Oximetry 97 93 Oxygen Delivery Method Room Air Room Air BMI result Body Mass Index 15.8 Labs 08/18/24 12:43 08/18/24 12:43 Labs: Laboratory Results - last 48 hr 08/19/24 08/19/24 08/19/24 12:56 16:57 21:16 POC Glucose 280 H 295 H 238 H 08/20/24 08/20/24 08/20/24 08:02 11:35 16:38 POC Glucose 252 H 278 H 271 H 08/20/24 08/21/24 20:38 07:49 POC Glucose 261 H 234 H Medications Medications Current Medications Acetaminophen (Acetaminophen 325 Mg Tablet) 650 mg PO Q6H PRN PRN Reason: Headache/Pain Mild Scale (1-3) Al Hydroxide/Mg Hydroxide (Magnesium Hydrox/Alum Hydrox 30 Ml Oral.Susp) 30 ml PO Q6H PRN PRN Reason: Heartburn/Nausea Clonidine HCl (Clonidine Hcl 0.2 Mg Tablet) 0.2 mg PO BID [facility]; Protocol Last Admin: 08/21/24 08:32 Dose: 0.2 mg Doxepin HCl (Doxepin Hcl 25 Mg Capsule) 50 mg PO BEDTIME [facility] Last Admin: 08/20/24 20:49 Dose: 50 mg Fluoxetine HCl (Fluoxetine Hcl 20 Mg Capsule) 60 mg PO DAILY [facility] Last Admin: 08/21/24 08:28 Dose: 60 mg Folic Acid (Folic Acid 1 Mg Tablet) 1 mg PO DAILY [facility] Last Admin: 08/21/24 08:29 Dose: 1 mg Gabapentin (Gabapentin 300 Mg Capsule) 600 mg PO TID [facility] Last Admin: 08/21/24 08:29 Dose: 600 mg Glucose (Glucose Gel 15 Gm Gel..Gram.) 15 gm PO Q15M PRN; Protocol PRN Reason: per Hypoglycemia Standing Ord. Hydroxyzine HCl (Hydroxyzine Hcl 50 Mg Tablet) 50 mg PO Q8H PRN PRN Reason: Anxiety Last Admin: 08/20/24 20:48 Dose: 50 mg Insulin Glargine (Insulin Glargine,Hum.Rec.Anlog 100 Unit/Ml 10 Ml Vial) 50 unit SUBCUT DAILY [facility] Last Admin: 08/21/24 08:29 Dose: 50 unit Insulin Human Lispro (Insulin Lispro 100 Unit/Ml 3 Ml Vial) 0 unit SUBCUT QIDACHS [facility]; Protocol Last Admin: 08/21/24 08:30 Dose: 6 unit Levetiracetam (Levetiracetam 500 Mg Tablet) 500 mg PO BID [facility] Last Admin: 08/21/24 08:29 Dose: 500 mg Loperamide HCl (Loperamide Hcl 2 Mg Capsule) 2 mg PO Q4H PRN PRN Reason: Diarrhea Last Admin: 08/20/24 15:21 Dose: 2 mg Magnesium Hydroxide (Milk Of Magnesia 30 Ml Oral.Susp) 30 ml PO DAILY PRN PRN Reason: Constipation Melatonin (Melatonin 3 Mg Tablet) 9 mg PO BEDTIME PRN PRN Reason: Insomnia Last Admin: 08/20/24 21:02 Dose: 9 mg Metformin HCl (Metformin Hcl Er 500 Mg Tab.Er.24h) 1,000 mg PO BIDWM [facility] Last Admin: 08/21/24 08:29 Dose: 1,000 mg Nicotine (Nicotine 21 Mg Patch.Td24) 21 mg TRANSDERMA DAILY [facility] Last Admin: 08/21/24 08:27 Dose: 21 mg Nicotine Polacrilex (Nicotine Polacrilex 2 Mg Gum) 4 mg BUCCAL Q2H PRN PRN Reason: Nicotine Cravings Ondansetron HCl (Ondansetron Odt 4 Mg Tab.Rapdis) 4 mg TRANSLINGU Q6H PRN PRN Reason: Nausea and Vomiting Last Admin: 08/20/24 21:02 Dose: 4 mg Pharmacy Consult (Consult Rx Etoh Phenob Po Only) 1 each MISCELLANE ONCE PRN; Protocol PRN Reason: Consult order Phenobarbital (Phenobarbital 30 Mg Tablet) 60 mg PO BID [facility]; Protocol Stop: 08/21/24 21:01 Last Admin: 08/21/24 08:29 Dose: 60 mg Phenobarbital (Phenobarbital 30 Mg Tablet) 30 mg PO BID [facility]; Protocol Stop: 08/23/24 21:01 Phenobarbital (Phenobarbital 30 Mg Tablet) 30 mg PO DAILY [facility]; Protocol Stop: 08/25/24 09:01 Quetiapine Fumarate (Quetiapine Fumarate 200 Mg Tablet) 200 mg PO DAILY [facility] Last Admin: 08/21/24 08:29 Dose: 200 mg Quetiapine Fumarate (Quetiapine Fumarate 400 Mg Tablet) 400 mg PO BEDTIME [facility] Last Admin: 08/20/24 20:49 Dose: 400 mg Thiamine HCl (Thiamine Hcl 100 Mg Tablet) 100 mg PO DAILY [facility] Last Admin: 08/21/24 08:29 Dose: 100 mg Trazodone HCl (Trazodone Hcl 100 Mg Tablet) 200 mg PO BEDTIME PRN PRN Reason: insomnia Last Admin: 08/20/24 20:57 Dose: 200 mg Allergies Allergies Allergy/AdvReac Type Severity Reaction Status Date / Time seafood Allergy Anaphylaxis Verified 08/18/24 12:19 Assessment & Plan Assessment & Plan (1) MDD (major depressive disorder), recurrent episode, severe: Status: Acute Code(s): F33.2 - Major depressive disorder, recurrent severe without psychotic features (2) PTSD (post-traumatic stress disorder): Status: Acute Code(s): F43.10 - Post-traumatic stress disorder, unspecified (3) Alcohol use disorder, severe, dependence: Status: Acute Code(s): F10.20 - Alcohol dependence, uncomplicated Plan Patient is a 40-year-old male with history of MDD, PTSD and alcohol use disorder who presented to [facility] ER via EMS due to suicidal ideation to drink himself to or cut himself secondary to increased depression. Plan: CV 15 minute safety checks Continue home medications Phenobarbital taper Addiction medicine consult Encourage groups Discharge planning 08/21: Active on unit, social with peers. Pt reports withdrawal symptoms are improving. future oriented. focused on sobriety. Pt reports he plans on attending [facility] on August 28, 2024. He continues to report some anxiety and depression. He reports some difficulty staying asleep but denies any issue falling asleep. Per nursing, pt slept through the night. Patient educated on: diagnosis, medication risk/benefits, substance abuse and therapeutic strategies Reason for continued inpatient stay Substantial Risk for: med/psych decompensation Time Spent With Patient Time: Total time managing care of this patient today _20___ minutes.
--- NOTE | 2024-08-21 11:32 | MHC.RECOVRN ---
AUDIT-C Brief Intervention Pt had positive screen for unhealthy alcohol use on admission, subsequently met with t/w to discuss alcohol use and recovery supports/options. This film writer met with patient to discuss current alcohol use and concerns related to increased risk of alcohol related problems.? Pt reports 16-20 24 ounce beers daily x 2 years. Discussed how alcohol use has impacted health, including negative impact on overall physical wellbeing and mental health. Withdrawal History: unsure if seizures are related to withdrawal, pt reports seizure disorder Treatment History: multiple ATS/CSS/TSS admissions in addition to sober living Pt reports longest time in recovery was 9 months while at [facility]. Supports:?mother, brothers, children Discussed risk reduction strategies including drinking below the recommended limit. Pt reports he has tried DEANN in the past, states nothing works for me. Provided pt with written resources including information on inpatient and outpatient treatment, DEANN, harm reduction, and recovery coaching. Pt plans to attend IOP, has intake appt on 08/28 for [facility] IOP[facility]PHP. Pt provided with t/w contact information if questions or concerns arise. Denies other questions or concerns at this time.?
--- NOTE | 2024-08-21 11:56 | MHC.RECOVSUP ---
Patient disclosed he drinks 16-20 tall boys a day. Never experiences social consequences for his drinking. Has noticed he does need to drink or he gets sick. Makes plans around drinking. Knows he's an alcoholic. Patient was referred for a Waiter/Waitress Room Service through [facility]. Patient was given a folder containing resources and intends to do IOP here.
[2024-08-21 12:10] LABS: Glucose, Whole Blood 256 mg/dL (60-115)
[2024-08-21] MEDS: hydrOXYzine HCL 50 MG TABLET PO (15:11)
--- NOTE | 2024-08-21 16:20 | PM.EVENT ---
Event Note Date of Service: 08/21/24 Event Note: consult for rash on forehead, c/w with seborrheic dermaitis ketoconazole shampoo recommended Time Spent With Patient Time: Total time managing care of this patient today ____ minutes.
[2024-08-21 16:50] LABS: Glucose, Whole Blood 303 mg/dL (60-115)
[2024-08-21 17:08] VITALS: BP 120/82; PULSE 99; RESP 18; O2SAT 99
[2024-08-21] MEDS: cloNIDine HCL 0.1 MG TABLET PO ×2 (17:13→20:40)
[2024-08-21 19:50] VITALS: BP 133/76; PULSE 98; RESP 18; TEMP 36.8; O2SAT 97
[2024-08-21 20:35] LABS: Glucose, Whole Blood 316 mg/dL (60-115)
[2024-08-21] MEDS: Melatonin 3 MG TABLET 9 MG PO (22:24)
[2024-08-21] MEDS: traZODone HCL 100 MG TABLET 200 MG PO (22:24)
[2024-08-21] MEDS: Doxepin HCl 25 MG CAPSULE 50 MG PO (22:24)
[2024-08-21] MEDS: QUEtiapine Fumarate 400 MG TABLET PO (22:25)
--- NOTE | 2024-08-21 23:30 | PC.RT ---
Sleep study started @ 2320 pt on RA; sitter in room
[2024-08-22 07:43] VITALS: BP 155/79; PULSE 89; RESP 14; TEMP 37.2; O2SAT 96
[2024-08-22 07:54] LABS: Glucose, Whole Blood 273 mg/dL (60-115)
[2024-08-22] MEDS: Nicotine 21 MG PATCH.TD24 TRANSDERMA (08:13)
[2024-08-22] MEDS: Insulin Lispro 100 UNIT/ML 3 ML VIAL SUBCUT ×4 (08:14→20:28)
[2024-08-22] MEDS: metFORMIN HCl ER 500 MG TAB.ER.24H 1000 MG PO ×2 (08:15→16:56)
[2024-08-22] MEDS: Gabapentin 300 MG CAPSULE 600 MG PO ×3 (08:15→22:03)
[2024-08-22] MEDS: levETIRAcetam 500 MG TABLET PO ×2 (08:15→22:03)
[2024-08-22] MEDS: PHENobarbitaL 30 MG TABLET PO ×2 (08:15→20:27)
[2024-08-22] MEDS: Insulin Glargine,Hum.rec.anlog 100 UNIT/ML 10 ML VIAL 50 UNIT SUBCUT (08:15)
[2024-08-22] MEDS: Thiamine HCL 100 MG TABLET PO (08:16)
[2024-08-22] MEDS: Folic Acid 1 MG TABLET PO (08:16)
[2024-08-22] MEDS: QUEtiapine Fumarate 200 MG TABLET PO (08:16)
[2024-08-22] MEDS: FLUoxetine HCl 20 MG CAPSULE 60 MG PO (08:16)
[2024-08-22] MEDS: cloNIDine HCL 0.2 MG TABLET PO ×2 (08:16→20:28)
--- NOTE | 2024-08-22 11:07 | P.PNPSI_ITS ---
Subjective Subjective Date of Service: 08/22/24 Reason For Visit: Crisis Interim History: Patient was seen. Calm and cooperative. He was resting in his room. He subjectively reported to RN symptoms of ETOH withdrawal. Objectively he has no tremor, confusion, delirium, or sweating. Future oriented. focused on sobriety. Pt reports he plans on attending [facility] on August 28, 2024. He continues to report some anxiety and depression. Sleep and appetite are good. Denies SI. Review of Systems Review of Systems Yes all other systems are reviewed and are negative Constitutional: Reports as per HPI Eyes: Reports as per HPI Reports as per HPI Cardiovascular: Reports as per HPI Respiratory: Reports as per HPI Gastrointestinal: Reports as per HPI Genitourinary: Reports as per HPI Musculoskeletal: Reports as per HPI Skin/Breast: Reports as per HPI Reports as per HPI Psychiatric: Reports as per HPI Endocrine: Reports as per HPI Hematologic/Lymphatic: Reports as per HPI Allergic/Immunologic: Reports as per HPI Mental Status Exam Mental Status Exam Narrative: Pt is alert and oriented; behavior is cooperative and calm; dressed in casual attire; mood is described as depressed ; eye contact appropriate; Speech is normal rate, volume and not pressured; thought process is organized and goal directed; Thought content is on tx; otherwise pertinent to relevant topics and without any delusional content, paranoid ideations or grandiosity; denies SI/HI/VH/AH. Diagnostics Vital Signs (24Hr): Vital Signs - 24 hr 08/21/24 17:08 08/21/24 19:50 08/22/24 07:43 Temperature 98.3 F 98.9 F Pulse Rate 99 98 89 Respiratory Rate 18 18 14 Blood Pressure 120/82 133/76 155/79 H Pulse Oximetry 99 97 96 Oxygen Delivery Method Room Air Room Air BMI result Body Mass Index 15.8 Labs 08/18/24 12:43 08/18/24 12:43 Labs: Laboratory Results - last 48 hr 08/20/24 08/20/24 08/20/24 11:35 16:38 20:38 POC Glucose 278 H 271 H 261 H 08/21/24 08/21/24 08/21/24 07:49 12:03 16:43 POC Glucose 234 H 256 H 303 H 08/21/24 08/22/24 20:30 07:38 POC Glucose 316 H 273 H Medications Medications Current Medications Acetaminophen (Acetaminophen 325 Mg Tablet) 650 mg PO Q6H PRN PRN Reason: Headache/Pain Mild Scale (1-3) Al Hydroxide/Mg Hydroxide (Magnesium Hydrox/Alum Hydrox 30 Ml Oral.Susp) 30 ml PO Q6H PRN PRN Reason: Heartburn/Nausea Clonidine HCl (Clonidine Hcl 0.2 Mg Tablet) 0.2 mg PO BID [facility]; Protocol Last Admin: 08/22/24 08:16 Dose: 0.2 mg Clonidine HCl (Clonidine Hcl 0.1 Mg Tablet) 0.1 mg PO TID PRN; Protocol PRN Reason: anxiety/restlessness Last Admin: 08/21/24 20:40 Dose: 0.1 mg Doxepin HCl (Doxepin Hcl 25 Mg Capsule) 50 mg PO BEDTIME [facility] Last Admin: 08/21/24 22:24 Dose: 50 mg Fluoxetine HCl (Fluoxetine Hcl 20 Mg Capsule) 60 mg PO DAILY [facility] Last Admin: 08/22/24 08:16 Dose: 60 mg Folic Acid (Folic Acid 1 Mg Tablet) 1 mg PO DAILY [facility] Last Admin: 08/22/24 08:16 Dose: 1 mg Gabapentin (Gabapentin 300 Mg Capsule) 600 mg PO TID [facility] Last Admin: 08/22/24 08:15 Dose: 600 mg Glucose (Glucose Gel 15 Gm Gel..Gram.) 15 gm PO Q15M PRN; Protocol PRN Reason: per Hypoglycemia Standing Ord. Hydroxyzine HCl (Hydroxyzine Hcl 50 Mg Tablet) 50 mg PO Q8H PRN PRN Reason: Anxiety Last Admin: 08/21/24 15:11 Dose: 50 mg Insulin Glargine (Insulin Glargine,Hum.Rec.Anlog 100 Unit/Ml 10 Ml Vial) 50 unit SUBCUT DAILY [facility] Last Admin: 08/22/24 08:15 Dose: 50 unit Insulin Human Lispro (Insulin Lispro 100 Unit/Ml 3 Ml Vial) 0 unit SUBCUT QIDACHS [facility]; Protocol Last Admin: 08/22/24 08:14 Dose: 8 unit Ketoconazole (Ketoconazole 2 % Shampoo 120 Ml Btl) 1 appl TOPICAL DAILY [facility]; Protocol Last Admin: 08/22/24 08:21 Dose: Not Given Levetiracetam (Levetiracetam 500 Mg Tablet) 500 mg PO BID [facility] Last Admin: 08/22/24 08:15 Dose: 500 mg Loperamide HCl (Loperamide Hcl 2 Mg Capsule) 2 mg PO Q4H PRN PRN Reason: Diarrhea Last Admin: 08/20/24 15:21 Dose: 2 mg Magnesium Hydroxide (Milk Of Magnesia 30 Ml Oral.Susp) 30 ml PO DAILY PRN PRN Reason: Constipation Melatonin (Melatonin 3 Mg Tablet) 9 mg PO BEDTIME PRN PRN Reason: Insomnia Last Admin: 08/21/24 22:24 Dose: 9 mg Metformin HCl (Metformin Hcl Er 500 Mg Tab.Er.24h) 1,000 mg PO BIDWM [facility] Last Admin: 08/22/24 08:15 Dose: 1,000 mg Nicotine (Nicotine 21 Mg Patch.Td24) 21 mg TRANSDERMA DAILY [facility] Last Admin: 08/22/24 08:13 Dose: 21 mg Nicotine Polacrilex (Nicotine Polacrilex 2 Mg Gum) 4 mg BUCCAL Q2H PRN PRN Reason: Nicotine Cravings Ondansetron HCl (Ondansetron Odt 4 Mg Tab.Rapdis) 4 mg TRANSLINGU Q6H PRN PRN Reason: Nausea and Vomiting Last Admin: 08/20/24 21:02 Dose: 4 mg Pharmacy Consult (Consult Rx Etoh Phenob Po Only) 1 each MISCELLANE ONCE PRN; Protocol PRN Reason: Consult order Phenobarbital (Phenobarbital 30 Mg Tablet) 30 mg PO BID [facility]; Protocol Stop: 08/23/24 21:01 Last Admin: 08/22/24 08:15 Dose: 30 mg Phenobarbital (Phenobarbital 30 Mg Tablet) 30 mg PO DAILY [facility]; Protocol Stop: 08/25/24 09:01 Quetiapine Fumarate (Quetiapine Fumarate 200 Mg Tablet) 200 mg PO DAILY [facility] Last Admin: 08/22/24 08:16 Dose: 200 mg Quetiapine Fumarate (Quetiapine Fumarate 400 Mg Tablet) 400 mg PO BEDTIME [facility] Last Admin: 08/21/24 22:25 Dose: 400 mg Thiamine HCl (Thiamine Hcl 100 Mg Tablet) 100 mg PO DAILY [facility] Last Admin: 08/22/24 08:16 Dose: 100 mg Trazodone HCl (Trazodone Hcl 100 Mg Tablet) 200 mg PO BEDTIME PRN PRN Reason: insomnia Last Admin: 08/21/24 22:24 Dose: 200 mg Allergies Allergies Allergy/AdvReac Type Severity Reaction Status Date / Time seafood Allergy Anaphylaxis Verified 08/18/24 12:19 Assessment & Plan Assessment & Plan (1) MDD (major depressive disorder), recurrent episode, severe: Status: Acute Code(s): F33.2 - Major depressive disorder, recurrent severe without psychotic features (2) PTSD (post-traumatic stress disorder): Status: Acute Code(s): F43.10 - Post-traumatic stress disorder, unspecified (3) Alcohol use disorder, severe, dependence: Status: Acute Code(s): F10.20 - Alcohol dependence, uncomplicated Plan Patient is a 40-year-old male with history of MDD, PTSD and alcohol use disorder who presented to [facility] via EMS due to suicidal ideation to drink himself to or cut himself secondary to increased depression. Plan: CV 15 minute safety checks Continue home medications Phenobarbital taper Addiction medicine consult Encourage groups Discharge planning 08/21: Active on unit, social with peers. Pt reports withdrawal symptoms are improving. future oriented. focused on sobriety. Pt reports he plans on attending [facility] on August 28, 2024. He continues to report some anxiety and depression. He reports some difficulty staying asleep but denies any issue falling asleep. Per nursing, pt slept through the night. 08/22: Continue current management and treatment plan. Reason for continued inpatient stay Substantial Risk for: inability to function and rapid decompensation Time Spent With Patient Time: Total time managing care of this patient today ____ minutes.
[2024-08-22 12:01] LABS: Glucose, Whole Blood 266 mg/dL (60-115)
[2024-08-22 12:02] VITALS: BP 120/83; PULSE 90
[2024-08-22] MEDS: cloNIDine HCL 0.1 MG TABLET PO ×3 (12:06→20:27)
[2024-08-22] MEDS: hydrOXYzine HCL 50 MG TABLET PO (12:06)
[2024-08-22 15:39] VITALS: BP 123/82; PULSE 96
[2024-08-22 16:47] LABS: Glucose, Whole Blood 288 mg/dL (60-115)
[2024-08-22 19:48] VITALS: BP 126/82; PULSE 97; RESP 16; TEMP 36.9; O2SAT 98
[2024-08-22 20:16] LABS: Glucose, Whole Blood 325 mg/dL (60-115)
--- NOTE | 2024-08-22 21:09 | PC.NURSE ---
EKG completed on pt this evening, NSR. scallop cutter Von notified at [id number].
[2024-08-22] MEDS: Doxepin HCl 25 MG CAPSULE 50 MG PO (22:03)
[2024-08-22] MEDS: Acetaminophen 325 MG TABLET 650 MG PO (22:03)
[2024-08-22] MEDS: traZODone HCL 100 MG TABLET 200 MG PO (22:04)
[2024-08-22] MEDS: Melatonin 3 MG TABLET 9 MG PO (22:04)
[2024-08-22] MEDS: QUEtiapine Fumarate 400 MG TABLET PO (22:04)
[2024-08-23 07:15] VITALS: BP 111/66; PULSE 75; RESP 14; TEMP 36.4; O2SAT 95
[2024-08-23 08:02] LABS: Glucose, Whole Blood 278 mg/dL (60-115)
[2024-08-23] MEDS: Milk of Magnesia 30 ML ORAL.SUSP PO (08:05)
[2024-08-23] MEDS: Folic Acid 1 MG TABLET PO (08:05)
[2024-08-23] MEDS: Insulin Lispro 100 UNIT/ML 3 ML VIAL SUBCUT ×4 (08:06→20:18)
[2024-08-23] MEDS: Insulin Glargine,Hum.rec.anlog 100 UNIT/ML 10 ML VIAL 50 UNIT SUBCUT (08:06)
[2024-08-23] MEDS: Thiamine HCL 100 MG TABLET PO (08:07)
[2024-08-23] MEDS: PHENobarbitaL 30 MG TABLET PO ×2 (08:07→20:18)
[2024-08-23] MEDS: FLUoxetine HCl 20 MG CAPSULE 60 MG PO (08:07)
[2024-08-23] MEDS: metFORMIN HCl ER 500 MG TAB.ER.24H 1000 MG PO ×2 (08:08→16:56)
[2024-08-23] MEDS: levETIRAcetam 500 MG TABLET PO ×2 (08:08→21:51)
[2024-08-23] MEDS: Nicotine 21 MG PATCH.TD24 TRANSDERMA (08:08)
[2024-08-23] MEDS: QUEtiapine Fumarate 200 MG TABLET PO (08:08)
[2024-08-23] MEDS: Gabapentin 300 MG CAPSULE 600 MG PO ×3 (08:09→21:50)
[2024-08-23] MEDS: cloNIDine HCL 0.2 MG TABLET PO ×2 (08:09→20:17)
[2024-08-23 08:51] LABS: Alanine Aminotransferase 170 U/L (0-40); Albumin Level 3.9 g/dL (3.5-5.0); Alkaline Phosphatase 116 U/L (39-117); Anion Gap 14 (12-20); Aspartate Amino Transferase 108 U/L (5-37); Bilirubin Total 0.3 mg/dL (0.0-1.0); Blood Urea Nitrogen 9 mg/dL (9-16); Calcium 9.3 mg/dL (8.4-10.2); Carbon Dioxide 24 mmol/L (22-29); Chloride 99 mmol/L (96-108); Cholesterol 171 mg/dL (<200); Estimated Glomerular Filt Rate > 60; Glucose Fasting 259 mg/dL (60-99); Glucose Random 257 mg/dL (60-115); HDL Cholesterol 44 mg/dL (>40); LDL Cholesterol Calculated 94 mg/dL (<100); Magnesium 1.7 mg/dL (1.6-2.6); Sodium 133 mmol/L (135-145); Total Protein 7.2 g/dL (6.5-8.0); Triglycerides 169 mg/dL (<150)
[2024-08-23] MEDS: Ketoconazole 2 % Shampoo 120 ML BTL 1 APPL TOPICAL (09:31)
[2024-08-23 11:20] VITALS: BP 120/77; PULSE 93; TEMP 36.4; O2SAT 96
[2024-08-23] MEDS: cloNIDine HCL 0.1 MG TABLET PO ×2 (11:22→20:17)
[2024-08-23] MEDS: hydrOXYzine HCL 50 MG TABLET PO ×2 (11:22→21:56)
[2024-08-23 11:31] LABS: Glucose, Whole Blood 317 mg/dL (60-115)
--- NOTE | 2024-08-23 11:49 | HO.PSYCHPN ---
Subjective Subjective Date of Service: 08/23/24 Reason For Visit: Crisis Interim History: Patient was seen. Calm and cooperative. He was more visible. When asked about withdrawals he says maybe a little. No objective signs of same. No tremors. Future oriented. focused on sobriety. Pt reports he plans on attending [facility] on August 28, 2024. Sleep and appetite are good. Denies SI. LFT's elevated. Review of Systems Review of Systems Yes all other systems are reviewed and are negative Constitutional: Reports as per HPI Eyes: Reports as per HPI Reports as per HPI Cardiovascular: Reports as per HPI Respiratory: Reports as per HPI Gastrointestinal: Reports as per HPI Genitourinary: Reports as per HPI Musculoskeletal: Reports as per HPI Skin/Breast: Reports as per HPI Reports as per HPI Psychiatric: Reports as per HPI Endocrine: Reports as per HPI Hematologic/Lymphatic: Reports as per HPI Allergic/Immunologic: Reports as per HPI Mental Status Exam Mental Status Exam Narrative: Pt is alert and oriented; behavior is cooperative and calm; dressed in casual attire; mood is described as depressed ; eye contact appropriate; Speech is normal rate, volume and not pressured; thought process is organized and goal directed; Thought content is on tx; otherwise pertinent to relevant topics and without any delusional content, paranoid ideations or grandiosity; denies SI/HI/VH/AH. Diagnostics Vital Signs (24Hr): Vital Signs - 24 hr 08/22/24 12:02 08/22/24 15:39 08/22/24 19:48 Temperature 98.4 F Pulse Rate 90 96 97 Respiratory Rate 16 Blood Pressure 120/83 123/82 126/82 Pulse Oximetry 98 Oxygen Delivery Method Room Air 08/23/24 07:15 08/23/24 11:20 Temperature 97.6 F 97.5 F Pulse Rate 75 93 Respiratory Rate 14 Blood Pressure 111/66 120/77 Pulse Oximetry 95 96 Oxygen Delivery Method Room Air BMI result Body Mass Index 15.8 Labs 08/18/24 12:43 08/23/24 07:53 Labs: Laboratory Results - last 48 hr 08/21/24 08/21/24 08/21/24 12:03 16:43 20:30 Sodium Potassium Chloride Carbon Dioxide Anion Gap BUN Creatinine Estim Creat Clear Calc Estimated GFR POC Glucose 256 H 303 H 316 H Random Glucose Fasting Glucose Calcium Magnesium Total Bilirubin AST ALT Alkaline Phosphatase Total Protein Albumin Triglycerides Cholesterol LDL Cholesterol, Calc HDL Cholesterol 08/22/24 08/22/24 08/22/24 07:38 11:54 16:43 Sodium Potassium Chloride Carbon Dioxide Anion Gap BUN Creatinine Estim Creat Clear Calc Estimated GFR POC Glucose 273 H 266 H 288 H Random Glucose Fasting Glucose Calcium Magnesium Total Bilirubin AST ALT Alkaline Phosphatase Total Protein Albumin Triglycerides Cholesterol LDL Cholesterol, Calc HDL Cholesterol 08/22/24 08/23/24 08/23/24 20:12 07:49 07:53 Sodium 133 L Potassium 4.0 Chloride 99 Carbon Dioxide 24 Anion Gap 14 BUN 9 Creatinine 0.72 Estim Creat Clear Calc 101.0 Estimated GFR > 60 POC Glucose 325 H 278 H Random Glucose 257 H Fasting Glucose 259 H Calcium 9.3 Magnesium 1.7 Total Bilirubin 0.3 AST 108 H ALT 170 H Alkaline Phosphatase 116 Total Protein 7.2 Albumin 3.9 Triglycerides 169 H Cholesterol 171 LDL Cholesterol, Calc 94 HDL Cholesterol 44 08/23/24 11:24 Sodium Potassium Chloride Carbon Dioxide Anion Gap BUN Creatinine Estim Creat Clear Calc Estimated GFR POC Glucose 317 H Random Glucose Fasting Glucose Calcium Magnesium Total Bilirubin AST ALT Alkaline Phosphatase Total Protein Albumin Triglycerides Cholesterol LDL Cholesterol, Calc HDL Cholesterol Medications Medications Current Medications Acetaminophen (Acetaminophen 325 Mg Tablet) 650 mg PO Q6H PRN PRN Reason: Headache/Pain Mild Scale (1-3) Last Admin: 08/22/24 22:03 Dose: 650 mg Al Hydroxide/Mg Hydroxide (Magnesium Hydrox/Alum Hydrox 30 Ml Oral.Susp) 30 ml PO Q6H PRN PRN Reason: Heartburn/Nausea Clonidine HCl (Clonidine Hcl 0.2 Mg Tablet) 0.2 mg PO BID [facility]; Protocol Last Admin: 08/23/24 08:09 Dose: 0.2 mg Clonidine HCl (Clonidine Hcl 0.1 Mg Tablet) 0.1 mg PO TID PRN; Protocol PRN Reason: anxiety/restlessness Last Admin: 08/22/24 20:27 Dose: 0.1 mg Doxepin HCl (Doxepin Hcl 25 Mg Capsule) 50 mg PO BEDTIME [facility] Last Admin: 08/22/24 22:03 Dose: 50 mg Fluoxetine HCl (Fluoxetine Hcl 20 Mg Capsule) 60 mg PO DAILY [facility] Last Admin: 08/23/24 08:07 Dose: 60 mg Folic Acid (Folic Acid 1 Mg Tablet) 1 mg PO DAILY [facility] Last Admin: 08/23/24 08:05 Dose: 1 mg Gabapentin (Gabapentin 300 Mg Capsule) 600 mg PO TID [facility] Last Admin: 08/23/24 08:09 Dose: 600 mg Glucose (Glucose Gel 15 Gm Gel..Gram.) 15 gm PO Q15M PRN; Protocol PRN Reason: per Hypoglycemia Standing Ord. Hydroxyzine HCl (Hydroxyzine Hcl 50 Mg Tablet) 50 mg PO Q8H PRN PRN Reason: Anxiety Last Admin: 08/23/24 11:22 Dose: 50 mg Insulin Glargine (Insulin Glargine,Hum.Rec.Anlog 100 Unit/Ml 10 Ml Vial) 50 unit SUBCUT DAILY [facility] Last Admin: 08/23/24 08:06 Dose: 50 unit Insulin Human Lispro (Insulin Lispro 100 Unit/Ml 3 Ml Vial) 0 unit SUBCUT QIDACHS [facility]; Protocol Last Admin: 08/23/24 08:06 Dose: 8 unit Ketoconazole (Ketoconazole 2 % Shampoo 120 Ml Btl) 1 appl TOPICAL DAILY [facility]; Protocol Last Admin: 08/23/24 09:31 Dose: 1 appl Levetiracetam (Levetiracetam 500 Mg Tablet) 500 mg PO BID [facility] Last Admin: 08/23/24 08:08 Dose: 500 mg Loperamide HCl (Loperamide Hcl 2 Mg Capsule) 2 mg PO Q4H PRN PRN Reason: Diarrhea Last Admin: 08/20/24 15:21 Dose: 2 mg Magnesium Hydroxide (Milk Of Magnesia 30 Ml Oral.Susp) 30 ml PO DAILY PRN PRN Reason: Constipation Last Admin: 08/23/24 08:05 Dose: 30 ml Melatonin (Melatonin 3 Mg Tablet) 9 mg PO BEDTIME PRN PRN Reason: Insomnia Last Admin: 08/22/24 22:04 Dose: 9 mg Metformin HCl (Metformin Hcl Er 500 Mg Tab.Er.24h) 1,000 mg PO BIDWM [facility] Last Admin: 08/23/24 08:08 Dose: 1,000 mg Nicotine (Nicotine 21 Mg Patch.Td24) 21 mg TRANSDERMA DAILY [facility] Last Admin: 08/23/24 08:08 Dose: 21 mg Nicotine Polacrilex (Nicotine Polacrilex 2 Mg Gum) 4 mg BUCCAL Q2H PRN PRN Reason: Nicotine Cravings Ondansetron HCl (Ondansetron Odt 4 Mg Tab.Rapdis) 4 mg TRANSLINGU Q6H PRN PRN Reason: Nausea and Vomiting Last Admin: 08/20/24 21:02 Dose: 4 mg Pharmacy Consult (Consult Rx Etoh Phenob Po Only) 1 each MISCELLANE ONCE PRN; Protocol PRN Reason: Consult order Phenobarbital (Phenobarbital 30 Mg Tablet) 30 mg PO BID [facility]; Protocol Stop: 08/23/24 21:01 Last Admin: 08/23/24 08:07 Dose: 30 mg Phenobarbital (Phenobarbital 30 Mg Tablet) 30 mg PO DAILY [facility]; Protocol Stop: 08/25/24 09:01 Quetiapine Fumarate (Quetiapine Fumarate 200 Mg Tablet) 200 mg PO DAILY [facility] Last Admin: 08/23/24 08:08 Dose: 200 mg Quetiapine Fumarate (Quetiapine Fumarate 400 Mg Tablet) 400 mg PO BEDTIME [facility] Last Admin: 08/22/24 22:04 Dose: 400 mg Thiamine HCl (Thiamine Hcl 100 Mg Tablet) 100 mg PO DAILY [facility] Last Admin: 08/23/24 08:07 Dose: 100 mg Trazodone HCl (Trazodone Hcl 100 Mg Tablet) 200 mg PO BEDTIME PRN PRN Reason: insomnia Last Admin: 08/22/24 22:04 Dose: 200 mg Allergies Allergies Allergy/AdvReac Type Severity Reaction Status Date / Time seafood Allergy Anaphylaxis Verified 08/18/24 12:19 Assessment & Plan Assessment & Plan (1) MDD (major depressive disorder), recurrent episode, severe: Status: Acute Code(s): F33.2 - Major depressive disorder, recurrent severe without psychotic features (2) PTSD (post-traumatic stress disorder): Status: Acute Code(s): F43.10 - Post-traumatic stress disorder, unspecified (3) Alcohol use disorder, severe, dependence: Status: Acute Code(s): F10.20 - Alcohol dependence, uncomplicated Plan Patient is a 40-year-old male with history of MDD, PTSD and alcohol use disorder who presented to [facility] via EMS due to suicidal ideation to drink himself to or cut himself secondary to increased depression. Plan: CV 15 minute safety checks Continue home medications Phenobarbital taper Addiction medicine consult Encourage groups Discharge planning 08/21: Active on unit, social with peers. Pt reports withdrawal symptoms are improving. future oriented. focused on sobriety. Pt reports he plans on attending [facility] on August [facility], 20[facility]. He continues to report some anxiety and depression. He reports some difficulty staying asleep but denies any issue falling asleep. Per nursing, pt slept through the night. 08/22: Continue current management and treatment plan. : Elevated LFT's. Continue current management and treatment plan. Repeat LFT's in 1-2 days. Consider hospitalist consult. Reason for continued inpatient stay Substantial Risk for: inability to function and rapid decompensation Time Spent With Patient Time: Total time managing care of this patient today ____ minutes.
[2024-08-23 16:29] LABS: Glucose, Whole Blood 304 mg/dL (60-115)
[2024-08-23 19:45] LABS: Glucose, Whole Blood 359 mg/dL (60-115)
[2024-08-23 20:00] VITALS: BP 130/89; PULSE 95; RESP 16; TEMP 36.6; O2SAT 98
[2024-08-23 21:44] LABS: Glucose, Whole Blood 281 mg/dL (60-115)
[2024-08-23] MEDS: Doxepin HCl 25 MG CAPSULE 50 MG PO (21:50)
[2024-08-23] MEDS: QUEtiapine Fumarate 400 MG TABLET PO (21:51)
[2024-08-23] MEDS: traZODone HCL 100 MG TABLET 200 MG PO (22:00)
[2024-08-23] MEDS: Melatonin 3 MG TABLET 9 MG PO (22:00)
[2024-08-24 07:34] VITALS: BP 120/72; PULSE 76; RESP 14; TEMP 36.6; O2SAT 95
[2024-08-24] MEDS: Insulin Glargine,Hum.rec.anlog 100 UNIT/ML 10 ML VIAL 50 UNIT SUBCUT (08:04)
[2024-08-24] MEDS: Nicotine 21 MG PATCH.TD24 TRANSDERMA (08:04)
[2024-08-24] MEDS: metFORMIN HCl ER 500 MG TAB.ER.24H 1000 MG PO ×2 (08:05→17:05)
[2024-08-24] MEDS: levETIRAcetam 500 MG TABLET PO ×2 (08:05→21:57)
[2024-08-24] MEDS: QUEtiapine Fumarate 200 MG TABLET PO (08:05)
[2024-08-24] MEDS: Folic Acid 1 MG TABLET PO (08:05)
[2024-08-24] MEDS: Gabapentin 300 MG CAPSULE 600 MG PO ×3 (08:05→21:59)
[2024-08-24] MEDS: FLUoxetine HCl 20 MG CAPSULE 60 MG PO (08:05)
[2024-08-24] MEDS: Thiamine HCL 100 MG TABLET PO (08:05)
[2024-08-24] MEDS: Insulin Lispro 100 UNIT/ML 3 ML VIAL SUBCUT ×4 (08:05→21:57)
[2024-08-24] MEDS: PHENobarbitaL 30 MG TABLET PO (08:06)
[2024-08-24] MEDS: cloNIDine HCL 0.2 MG TABLET PO ×2 (08:06→21:04)
[2024-08-24 08:07] LABS: Glucose, Whole Blood 246 mg/dL (60-115)
[2024-08-24 11:29] VITALS: BP 120/81
[2024-08-24] MEDS: hydrOXYzine HCL 50 MG TABLET PO ×2 (11:29→21:04)
[2024-08-24] MEDS: cloNIDine HCL 0.1 MG TABLET PO ×2 (11:29→16:11)
[2024-08-24 11:36] LABS: Glucose, Whole Blood 221 mg/dL (60-115)
--- NOTE | 2024-08-24 12:50 | P.PNPSI_ITS ---
Subjective Subjective Date of Service: 08/24/24 Reason For Visit: Crisis Subjective Notes: Conditional Voluntary Interim History: Reviewed with Dr. Ingram. Patient reports feeling some anxiety and depression today; focused on PHP intake on Saturday. Pt denies withdrawal symptoms; continues with phenobarbital taper. Pt reports sleeping well. denies SI/HI/VH/AH. Continue current tx plan. Medication Compliance: Yes Side effects from medications: No Attending Groups: Yes Review of Systems Constitutional: Reports as per HPI Eyes: Reports as per HPI Reports as per HPI Cardiovascular: Reports as per HPI Respiratory: Reports as per HPI Gastrointestinal: Reports as per HPI Genitourinary: Reports as per HPI Musculoskeletal: Reports as per HPI Skin/Breast: Reports as per HPI Reports as per HPI Psychiatric: Reports as per HPI Endocrine: Reports as per HPI Hematologic/Lymphatic: Reports as per HPI Allergic/Immunologic: Reports as per HPI Mental Status Exam Mental Status Exam Narrative: Pt is alert and oriented; behavior is cooperative and calm; dressed in casual attire; mood is described as depressed and anxious ; eye contact appropriate; Speech is normal rate, volume and not pressured; thought process is organized and goal directed; Thought content is on tx; otherwise pertinent to relevant topics and without any delusional content, paranoid ideations or grandiosity; denies SI/HI/VH/AH. Diagnostics Vital Signs (24Hr): Vital Signs - 24 hr 08/23/24 20:00 08/24/24 07:34 08/24/24 11:29 Temperature 97.8 F 97.9 F Pulse Rate 95 76 Respiratory Rate 16 14 Blood Pressure 130/89 120/72 120/81 Pulse Oximetry 98 95 Oxygen Delivery Method Room Air Room Air BMI result Body Mass Index 15.8 Labs 08/18/24 12:43 08/23/24 07:53 Labs: Laboratory Results - last 48 hr 08/22/24 08/22/24 08/23/24 16:43 20:12 07:49 Sodium Potassium Chloride Carbon Dioxide Anion Gap BUN Creatinine Estim Creat Clear Calc Estimated GFR POC Glucose 288 H 325 H 278 H Random Glucose Fasting Glucose Calcium Magnesium Total Bilirubin AST ALT Alkaline Phosphatase Total Protein Albumin Triglycerides Cholesterol LDL Cholesterol, Calc HDL Cholesterol 08/23/24 08/23/24 08/23/24 07:53 11:24 16:25 Sodium 133 L Potassium 4.0 Chloride 99 Carbon Dioxide 24 Anion Gap 14 BUN 9 Creatinine 0.72 Estim Creat Clear Calc 101.0 Estimated GFR > 60 POC Glucose 317 H 304 H Random Glucose 257 H Fasting Glucose 259 H Calcium 9.3 Magnesium 1.7 Total Bilirubin 0.3 AST 108 H ALT 170 H Alkaline Phosphatase 116 Total Protein 7.2 Albumin 3.9 Triglycerides 169 H Cholesterol 171 LDL Cholesterol, Calc 94 HDL Cholesterol 44 08/23/24 08/23/24 08/24/24 19:41 21:40 07:44 Sodium Potassium Chloride Carbon Dioxide Anion Gap BUN Creatinine Estim Creat Clear Calc Estimated GFR POC Glucose 359 H* 281 H 246 H Random Glucose Fasting Glucose Calcium Magnesium Total Bilirubin AST ALT Alkaline Phosphatase Total Protein Albumin Triglycerides Cholesterol LDL Cholesterol, Calc HDL Cholesterol 08/24/24 11:32 Sodium Potassium Chloride Carbon Dioxide Anion Gap BUN Creatinine Estim Creat Clear Calc Estimated GFR POC Glucose 221 H Random Glucose Fasting Glucose Calcium Magnesium Total Bilirubin AST ALT Alkaline Phosphatase Total Protein Albumin Triglycerides Cholesterol LDL Cholesterol, Calc HDL Cholesterol Medications Medications Current Medications Acetaminophen (Acetaminophen 325 Mg Tablet) 650 mg PO Q6H PRN PRN Reason: Headache/Pain Mild Scale (1-3) Last Admin: 08/22/24 22:03 Dose: 650 mg Al Hydroxide/Mg Hydroxide (Magnesium Hydrox/Alum Hydrox 30 Ml Oral.Susp) 30 ml PO Q6H PRN PRN Reason: Heartburn/Nausea Clonidine HCl (Clonidine Hcl 0.2 Mg Tablet) 0.2 mg PO BID [facility]; Protocol Last Admin: 08/24/24 08:06 Dose: 0.2 mg Clonidine HCl (Clonidine Hcl 0.1 Mg Tablet) 0.1 mg PO TID PRN; Protocol PRN Reason: anxiety/restlessness Last Admin: 08/24/24 11:29 Dose: 0.1 mg Doxepin HCl (Doxepin Hcl 25 Mg Capsule) 50 mg PO BEDTIME [facility] Last Admin: 08/23/24 21:50 Dose: 50 mg Fluoxetine HCl (Fluoxetine Hcl 20 Mg Capsule) 60 mg PO DAILY [facility] Last Admin: 08/24/24 08:05 Dose: 60 mg Folic Acid (Folic Acid 1 Mg Tablet) 1 mg PO DAILY [facility] Last Admin: 08/24/24 08:05 Dose: 1 mg Gabapentin (Gabapentin 300 Mg Capsule) 600 mg PO TID [facility] Last Admin: 08/24/24 08:05 Dose: 600 mg Glucose (Glucose Gel 15 Gm Gel..Gram.) 15 gm PO Q15M PRN; Protocol PRN Reason: per Hypoglycemia Standing Ord. Hydroxyzine HCl (Hydroxyzine Hcl 50 Mg Tablet) 50 mg PO Q8H PRN PRN Reason: Anxiety Last Admin: 08/24/24 11:29 Dose: 50 mg Insulin Glargine (Insulin Glargine,Hum.Rec.Anlog 100 Unit/Ml 10 Ml Vial) 50 unit SUBCUT DAILY [facility] Last Admin: 08/24/24 08:04 Dose: 50 unit Insulin Human Lispro (Insulin Lispro 100 Unit/Ml 3 Ml Vial) 0 unit SUBCUT QIDACHS [facility]; Protocol Last Admin: 08/24/24 12:06 Dose: 6 unit Ketoconazole (Ketoconazole 2 % Shampoo 120 Ml Btl) 1 appl TOPICAL DAILY [facility]; Protocol Last Admin: 08/24/24 08:25 Dose: Not Given Levetiracetam (Levetiracetam 500 Mg Tablet) 500 mg PO BID [facility] Last Admin: 08/24/24 08:05 Dose: 500 mg Loperamide HCl (Loperamide Hcl 2 Mg Capsule) 2 mg PO Q4H PRN PRN Reason: Diarrhea Last Admin: 08/20/24 15:21 Dose: 2 mg Magnesium Hydroxide (Milk Of Magnesia 30 Ml Oral.Susp) 30 ml PO DAILY PRN PRN Reason: Constipation Last Admin: 08/23/24 08:05 Dose: 30 ml Melatonin (Melatonin 3 Mg Tablet) 9 mg PO BEDTIME PRN PRN Reason: Insomnia Last Admin: 08/23/24 22:00 Dose: 9 mg Metformin HCl (Metformin Hcl Er 500 Mg Tab.Er.24h) 1,000 mg PO BIDWM [facility] Last Admin: 08/24/24 08:05 Dose: 1,000 mg Nicotine (Nicotine 21 Mg Patch.Td24) 21 mg TRANSDERMA DAILY [facility] Last Admin: 08/24/24 08:04 Dose: 21 mg Nicotine Polacrilex (Nicotine Polacrilex 2 Mg Gum) 4 mg BUCCAL Q2H PRN PRN Reason: Nicotine Cravings Ondansetron HCl (Ondansetron Odt 4 Mg Tab.Rapdis) 4 mg TRANSLINGU Q6H PRN PRN Reason: Nausea and Vomiting Last Admin: 08/20/24 21:02 Dose: 4 mg Pharmacy Consult (Consult Rx Etoh Phenob Po Only) 1 each MISCELLANE ONCE PRN; Protocol PRN Reason: Consult order Phenobarbital (Phenobarbital 30 Mg Tablet) 30 mg PO DAILY [facility]; Protocol Stop: 08/25/24 09:01 Last Admin: 08/24/24 08:06 Dose: 30 mg Quetiapine Fumarate (Quetiapine Fumarate 200 Mg Tablet) 200 mg PO DAILY [facility] Last Admin: 08/24/24 08:05 Dose: 200 mg Quetiapine Fumarate (Quetiapine Fumarate 400 Mg Tablet) 400 mg PO BEDTIME [facility] Last Admin: 08/23/24 21:51 Dose: 400 mg Thiamine HCl (Thiamine Hcl 100 Mg Tablet) 100 mg PO DAILY [facility] Last Admin: 08/24/24 08:05 Dose: 100 mg Trazodone HCl (Trazodone Hcl 100 Mg Tablet) 200 mg PO BEDTIME PRN PRN Reason: insomnia Last Admin: 08/23/24 22:00 Dose: 200 mg Allergies Allergies Allergy/AdvReac Type Severity Reaction Status Date / Time seafood Allergy Anaphylaxis Verified 08/18/24 12:19 Assessment & Plan Assessment & Plan (1) MDD (major depressive disorder), recurrent episode, severe: Status: Acute Code(s): F33.2 - Major depressive disorder, recurrent severe without psychotic features (2) PTSD (post-traumatic stress disorder): Status: Acute Code(s): F43.10 - Post-traumatic stress disorder, unspecified (3) Alcohol use disorder, severe, dependence: Status: Acute Code(s): F10.20 - Alcohol dependence, uncomplicated Plan Patient is a 40-year-old male with history of MDD, PTSD and alcohol use disorder who presented to [facility] via EMS due to suicidal ideation to drink himself to or cut himself secondary to increased depression. Plan: CV 15 minute safety checks Continue home medications Phenobarbital taper Addiction medicine consult Encourage groups Discharge planning 08/21: Active on unit, social with peers. Pt reports withdrawal symptoms are improving. future oriented. focused on sobriety. Pt reports he plans on attending [facility] on August 28, 2024. He continues to report some anxiety and depression. He reports some difficulty staying asleep but denies any issue falling asleep. Per nursing, pt slept through the night. 08/22: Continue current management and treatment plan. : Elevated LFT's. Continue current management and treatment plan. Repeat LFT's in 1-2 days. Consider hospitalist consult. 08/24: Patient reports feeling some anxiety and depression today; focused on PHP intake on Saturday. Pt denies withdrawal symptoms; continues with phenobarbital taper. Pt reports sleeping well. denies SI/HI/VH/AH. Continue current tx plan. Patient educated on: diagnosis, medication risk/benefits and therapeutic strategies Reason for continued inpatient stay Substantial Risk for: med/psych decompensation Time Spent With Patient Time: Total time managing care of this patient today _20___ minutes.
[2024-08-24 13:06] LABS: COVID-19 Test Positive (Negative); IDNOW Serial# 08D9AD1C
[2024-08-24 16:10] VITALS: BP 139/77; PULSE 93; RESP 16; TEMP 37; O2SAT 98
[2024-08-24 16:11] VITALS: BP 139/77
[2024-08-24 16:48] LABS: Glucose, Whole Blood 309 mg/dL (60-115)
[2024-08-24 20:00] VITALS: BP 117/81; PULSE 93; RESP 16; TEMP 36.6; O2SAT 98
[2024-08-24 20:28] LABS: Glucose, Whole Blood 288 mg/dL (60-115)
[2024-08-24] MEDS: traZODone HCL 100 MG TABLET 200 MG PO (21:57)
[2024-08-24] MEDS: Melatonin 3 MG TABLET 9 MG PO (21:58)
[2024-08-24] MEDS: QUEtiapine Fumarate 400 MG TABLET PO (21:59)
[2024-08-24] MEDS: Doxepin HCl 25 MG CAPSULE 50 MG PO (21:59)
[2024-08-25 07:57] LABS: Glucose, Whole Blood 256 mg/dL (60-115)
[2024-08-25] MEDS: Folic Acid 1 MG TABLET PO (08:14)
[2024-08-25] MEDS: levETIRAcetam 500 MG TABLET PO ×2 (08:14→22:10)
[2024-08-25] MEDS: QUEtiapine Fumarate 200 MG TABLET PO (08:15)
[2024-08-25 08:16] VITALS: BP 116/69; PULSE 72; RESP 16; TEMP 36.8; O2SAT 96
[2024-08-25] MEDS: cloNIDine HCL 0.2 MG TABLET PO ×2 (08:18→21:30)
[2024-08-25] MEDS: PHENobarbitaL 30 MG TABLET PO (08:18)
[2024-08-25] MEDS: metFORMIN HCl ER 500 MG TAB.ER.24H 1000 MG PO ×2 (08:19→17:08)
[2024-08-25] MEDS: Thiamine HCL 100 MG TABLET PO (08:19)
[2024-08-25] MEDS: Gabapentin 300 MG CAPSULE 600 MG PO ×3 (08:19→22:10)
[2024-08-25] MEDS: FLUoxetine HCl 20 MG CAPSULE 60 MG PO (08:20)
[2024-08-25] MEDS: Nicotine 21 MG PATCH.TD24 TRANSDERMA (08:21)
[2024-08-25] MEDS: Insulin Lispro 100 UNIT/ML 3 ML VIAL SUBCUT ×4 (08:22→21:28)
[2024-08-25] MEDS: Insulin Glargine,Hum.rec.anlog 100 UNIT/ML 10 ML VIAL 50 UNIT SUBCUT (08:22)
[2024-08-25] MEDS: Ketoconazole 2 % Shampoo 120 ML BTL 1 APPL TOPICAL (08:44)
--- NOTE | 2024-08-25 09:47 | HO.PSYCHPN ---
Subjective Subjective Date of Service: 08/25/24 Reason For Visit: Crisis Subjective Notes: Conditional Voluntary Interim History: Reviewed with Dr. Ingram. Pt tested Covid positive yesterday; denies any symptoms. Pt reports feeling good today; denies SI/HI/VH/AH. denies withdrawal symptoms; phenobarbital taper completed today. LFT's to be drawn tomorrow. Plan to discharge on . Intake with PHP on Saturday. Medication Compliance: Yes Side effects from medications: No Review of Systems Constitutional: Reports as per HPI Eyes: Reports as per HPI Reports as per HPI Cardiovascular: Reports as per HPI Respiratory: Reports as per HPI Gastrointestinal: Reports as per HPI Genitourinary: Reports as per HPI Musculoskeletal: Reports as per HPI Skin/Breast: Reports as per HPI Reports as per HPI Psychiatric: Reports as per HPI Endocrine: Reports as per HPI Hematologic/Lymphatic: Reports as per HPI Allergic/Immunologic: Reports as per HPI Mental Status Exam Mental Status Exam Narrative: Pt is alert and oriented; behavior is cooperative and calm; dressed in casual attire; mood is described as better ; eye contact appropriate; Speech is normal rate, volume and not pressured; thought process is organized and goal directed; Thought content is on tx; otherwise pertinent to relevant topics and without any delusional content, paranoid ideations or grandiosity; denies SI/HI/VH/AH. Diagnostics Vital Signs (24Hr): Vital Signs - 24 hr 08/24/24 11:29 08/24/24 16:10 08/24/24 16:11 Temperature 98.6 F Pulse Rate 93 Respiratory Rate 16 Blood Pressure 120/81 139/77 139/77 Pulse Oximetry 98 Oxygen Delivery Method Room Air 08/24/24 20:00 08/25/24 08:16 Temperature 97.8 F 98.2 F Pulse Rate 93 72 Respiratory Rate 16 16 Blood Pressure 117/81 116/69 Pulse Oximetry 98 96 Oxygen Delivery Method Room Air Room Air BMI result Body Mass Index 15.8 Labs 08/18/24 12:43 08/23/24 07:53 Labs: Laboratory Results - last 48 hr 08/23/24 08/23/24 08/23/24 11:24 16:25 19:41 POC Glucose 317 H 304 H 359 H* COVID-19 ([facility]) COVID-19 Clin Com 08/23/24 08/24/24 08/24/24 21:40 07:44 11:32 POC Glucose 281 H 246 H 221 H COVID-19 ([facility]) COVID-19 Clin Com 08/24/24 08/24/24 08/24/24 11:50 16:43 20:20 POC Glucose 309 H 288 H COVID-19 ([facility]) Positive A COVID-19 Clin Com See Note 08/25/24 07:50 POC Glucose 256 H COVID-19 ([facility]) COVID-19 Clin Com Medications Medications Current Medications Acetaminophen (Acetaminophen 325 Mg Tablet) 650 mg PO Q6H PRN PRN Reason: Headache/Pain Mild Scale (1-3) Last Admin: 08/22/24 22:03 Dose: 650 mg Al Hydroxide/Mg Hydroxide (Magnesium Hydrox/Alum Hydrox 30 Ml Oral.Susp) 30 ml PO Q6H PRN PRN Reason: Heartburn/Nausea Clonidine HCl (Clonidine Hcl 0.2 Mg Tablet) 0.2 mg PO BID [facility]; Protocol Last Admin: 08/25/24 08:18 Dose: 0.2 mg Clonidine HCl (Clonidine Hcl 0.1 Mg Tablet) 0.1 mg PO TID PRN; Protocol PRN Reason: anxiety/restlessness Last Admin: 08/24/24 16:11 Dose: 0.1 mg Doxepin HCl (Doxepin Hcl 25 Mg Capsule) 50 mg PO BEDTIME [facility] Last Admin: 08/24/24 21:59 Dose: 50 mg Fluoxetine HCl (Fluoxetine Hcl 20 Mg Capsule) 60 mg PO DAILY [facility] Last Admin: 08/25/24 08:20 Dose: 60 mg Folic Acid (Folic Acid 1 Mg Tablet) 1 mg PO DAILY [facility] Last Admin: 08/25/24 08:14 Dose: 1 mg Gabapentin (Gabapentin 300 Mg Capsule) 600 mg PO TID [facility] Last Admin: 08/25/24 08:19 Dose: 600 mg Glucose (Glucose Gel 15 Gm Gel..Gram.) 15 gm PO Q15M PRN; Protocol PRN Reason: per Hypoglycemia Standing Ord. Hydroxyzine HCl (Hydroxyzine Hcl 50 Mg Tablet) 50 mg PO Q8H PRN PRN Reason: Anxiety Last Admin: 08/24/24 21:04 Dose: 50 mg Insulin Glargine (Insulin Glargine,Hum.Rec.Anlog 100 Unit/Ml 10 Ml Vial) 50 unit SUBCUT DAILY [facility] Last Admin: 08/25/24 08:22 Dose: 50 unit Insulin Human Lispro (Insulin Lispro 100 Unit/Ml 3 Ml Vial) 0 unit SUBCUT QIDACHS [facility]; Protocol Last Admin: 08/25/24 08:22 Dose: 8 unit Ketoconazole (Ketoconazole 2 % Shampoo 120 Ml Btl) 1 appl TOPICAL DAILY [facility]; Protocol Last Admin: 08/25/24 08:44 Dose: 1 appl Levetiracetam (Levetiracetam 500 Mg Tablet) 500 mg PO BID [facility] Last Admin: 08/25/24 08:14 Dose: 500 mg Loperamide HCl (Loperamide Hcl 2 Mg Capsule) 2 mg PO Q4H PRN PRN Reason: Diarrhea Last Admin: 08/20/24 15:21 Dose: 2 mg Magnesium Hydroxide (Milk Of Magnesia 30 Ml Oral.Susp) 30 ml PO DAILY PRN PRN Reason: Constipation Last Admin: 08/23/24 08:05 Dose: 30 ml Melatonin (Melatonin 3 Mg Tablet) 9 mg PO BEDTIME PRN PRN Reason: Insomnia Last Admin: 08/24/24 21:58 Dose: 9 mg Metformin HCl (Metformin Hcl Er 500 Mg Tab.Er.24h) 1,000 mg PO BIDWM [facility] Last Admin: 08/25/24 08:19 Dose: 1,000 mg Nicotine (Nicotine 21 Mg Patch.Td24) 21 mg TRANSDERMA DAILY [facility] Last Admin: 08/25/24 08:21 Dose: 21 mg Nicotine Polacrilex (Nicotine Polacrilex 2 Mg Gum) 4 mg BUCCAL Q2H PRN PRN Reason: Nicotine Cravings Ondansetron HCl (Ondansetron Odt 4 Mg Tab.Rapdis) 4 mg TRANSLINGU Q6H PRN PRN Reason: Nausea and Vomiting Last Admin: 08/20/24 21:02 Dose: 4 mg Pharmacy Consult (Consult Rx Etoh Phenob Po Only) 1 each MISCELLANE ONCE PRN; Protocol PRN Reason: Consult order Quetiapine Fumarate (Quetiapine Fumarate 200 Mg Tablet) 200 mg PO DAILY [facility] Last Admin: 08/25/24 08:15 Dose: 200 mg Quetiapine Fumarate (Quetiapine Fumarate 400 Mg Tablet) 400 mg PO BEDTIME [facility] Last Admin: 08/24/24 21:59 Dose: 400 mg Thiamine HCl (Thiamine Hcl 100 Mg Tablet) 100 mg PO DAILY [facility] Last Admin: 08/25/24 08:19 Dose: 100 mg Trazodone HCl (Trazodone Hcl 100 Mg Tablet) 200 mg PO BEDTIME PRN PRN Reason: insomnia Last Admin: 08/24/24 21:57 Dose: 200 mg Allergies Allergies Allergy/AdvReac Type Severity Reaction Status Date / Time seafood Allergy Anaphylaxis Verified 08/18/24 12:19 Assessment & Plan Assessment & Plan (1) MDD (major depressive disorder), recurrent episode, severe: Status: Acute Code(s): F33.2 - Major depressive disorder, recurrent severe without psychotic features (2) PTSD (post-traumatic stress disorder): Status: Acute Code(s): F43.10 - Post-traumatic stress disorder, unspecified (3) Alcohol use disorder, severe, dependence: Status: Acute Code(s): F10.20 - Alcohol dependence, uncomplicated Plan Patient is a 40-year-old male with history of MDD, PTSD and alcohol use disorder who presented to [facility] via EMS due to suicidal ideation to drink himself to or cut himself secondary to increased depression. Plan: CV 15 minute safety checks Continue home medications Phenobarbital taper Addiction medicine consult Encourage groups Discharge planning 08/21: Active on unit, social with peers. Pt reports withdrawal symptoms are improving. future oriented. focused on sobriety. Pt reports he plans on attending PHP on August 28, 2024. He continues to report some anxiety and depression. He reports some difficulty staying asleep but denies any issue falling asleep. Per nursing, pt slept through the night. 08/22: Continue current management and treatment plan. : Elevated LFT's. Continue current management and treatment plan. Repeat LFT's in 1-2 days. Consider hospitalist consult. 08/24: Patient reports feeling some anxiety and depression today; focused on PHP intake on Saturday. Pt denies withdrawal symptoms; continues with phenobarbital taper. Pt reports sleeping well. denies SI/HI/VH/AH. Continue current tx plan. 08/25: Pt tested Covid positive yesterday; denies any symptoms. Pt reports feeling good today; denies SI/HI/VH/AH. denies withdrawal symptoms; phenobarbital taper completed today. LFT's to be drawn tomorrow. Plan to discharge on . Intake with PHP on Saturday. Patient educated on: diagnosis and medication risk/benefits Reason for continued inpatient stay Substantial Risk for: med/psych decompensation Time Spent With Patient Time: Total time managing care of this patient today _20___ minutes.
[2024-08-25 11:43] LABS: Glucose, Whole Blood 251 mg/dL (60-115)
[2024-08-25 11:52] VITALS: BP 112/73; PULSE 85
[2024-08-25] MEDS: hydrOXYzine HCL 50 MG TABLET PO ×2 (11:54→21:30)
[2024-08-25] MEDS: cloNIDine HCL 0.1 MG TABLET PO ×2 (11:54→21:30)
[2024-08-25 17:01] LABS: Glucose, Whole Blood 283 mg/dL (60-115)
[2024-08-25 21:02] VITALS: BP 132/80; PULSE 89; RESP 16; TEMP 36.5; O2SAT 99
[2024-08-25 21:04] LABS: Glucose, Whole Blood 300 mg/dL (60-115)
[2024-08-25] MEDS: Doxepin HCl 25 MG CAPSULE 50 MG PO (22:09)
[2024-08-25] MEDS: traZODone HCL 100 MG TABLET 200 MG PO (22:10)
[2024-08-25] MEDS: QUEtiapine Fumarate 400 MG TABLET PO (22:10)
[2024-08-25] MEDS: Melatonin 3 MG TABLET 9 MG PO (22:11)
[2024-08-26 07:25] VITALS: BP 132/83; PULSE 73; RESP 16; TEMP 36.6; O2SAT 97
[2024-08-26 07:53] LABS: Glucose, Whole Blood 249 mg/dL (60-115)
[2024-08-26 08:39] LABS: Alanine Aminotransferase 192 U/L (0-40); Alkaline Phosphatase 123 U/L (39-117); Aspartate Amino Transferase 84 U/L (5-37); Bilirubin Direct 0.1 mg/dL (0.0-0.5); Bilirubin Total 0.3 mg/dL (0.0-1.0); Total Protein 7.3 g/dL (6.5-8.0)
[2024-08-26] MEDS: Nicotine 21 MG PATCH.TD24 TRANSDERMA (08:39)
[2024-08-26] MEDS: Insulin Glargine,Hum.rec.anlog 100 UNIT/ML 10 ML VIAL 50 UNIT SUBCUT (08:40)
[2024-08-26] MEDS: Gabapentin 300 MG CAPSULE 600 MG PO ×3 (08:40→22:01)
[2024-08-26] MEDS: Thiamine HCL 100 MG TABLET PO (08:40)
[2024-08-26] MEDS: metFORMIN HCl ER 500 MG TAB.ER.24H 1000 MG PO ×2 (08:40→17:10)
[2024-08-26] MEDS: levETIRAcetam 500 MG TABLET PO ×2 (08:40→22:02)
[2024-08-26] MEDS: QUEtiapine Fumarate 200 MG TABLET PO (08:40)
[2024-08-26] MEDS: Folic Acid 1 MG TABLET PO (08:40)
[2024-08-26] MEDS: hydrOXYzine HCL 50 MG TABLET PO ×2 (08:40→22:02)
[2024-08-26] MEDS: cloNIDine HCL 0.2 MG TABLET PO ×2 (08:40→21:04)
[2024-08-26] MEDS: FLUoxetine HCl 20 MG CAPSULE 60 MG PO (08:40)
[2024-08-26] MEDS: Insulin Lispro 100 UNIT/ML 3 ML VIAL SUBCUT ×4 (08:41→21:03)
--- NOTE | 2024-08-26 09:00 | HO.PSYCHPN ---
Subjective Subjective Date of Service: 08/26/24 Reason For Visit: Crisis Subjective Notes: Conditional Voluntary Interim History: Pt continues to deny covid symptoms. He reports feeling good and ready to go home ; pt denies SI/HI/VH/AH. sleeping well. Plan to follow up with outpatient providers. Medication Compliance: Yes Side effects from medications: No Review of Systems Constitutional: Reports as per HPI Eyes: Reports as per HPI Reports as per HPI Cardiovascular: Reports as per HPI Respiratory: Reports as per HPI Gastrointestinal: Reports as per HPI Genitourinary: Reports as per HPI Musculoskeletal: Reports as per HPI Skin/Breast: Reports as per HPI Reports as per HPI Psychiatric: Reports as per HPI Endocrine: Reports as per HPI Hematologic/Lymphatic: Reports as per HPI Allergic/Immunologic: Reports as per HPI Mental Status Exam Mental Status Exam Narrative: Pt is alert and oriented; behavior is cooperative and calm; dressed in casual attire; mood is described as good ; eye contact appropriate; Speech is normal rate, volume and not pressured; thought process is organized and goal directed; Thought content is on tx; otherwise pertinent to relevant topics and without any delusional content, paranoid ideations or grandiosity; denies SI/HI/VH/AH. Diagnostics Vital Signs (24Hr): Vital Signs - 24 hr 08/25/24 11:52 08/25/24 21:02 08/26/24 07:25 Temperature 97.7 F 97.8 F Pulse Rate 85 89 73 Respiratory Rate 16 16 Blood Pressure 112/73 132/80 132/83 Pulse Oximetry 99 97 Oxygen Delivery Method Room Air Room Air BMI result Body Mass Index 15.8 Labs 08/18/24 12:43 08/23/24 07:53 Labs: Laboratory Results - last 48 hr 08/24/24 08/24/24 08/24/24 11:32 11:50 16:43 POC Glucose 221 H 309 H Total Bilirubin Direct Bilirubin AST ALT Alkaline Phosphatase Total Protein Albumin COVID-19 ([facility]) Positive A COVID-19 Clin Com See Note 08/24/24 08/25/24 08/25/24 20:20 07:50 11:35 POC Glucose 288 H 256 H 251 H Total Bilirubin Direct Bilirubin AST ALT Alkaline Phosphatase Total Protein Albumin COVID-19 ([facility]) COVID-19 Clin Com 10/29/24 10/29/24 10/30/24 16:52 20:51 07:40 POC Glucose 283 H 300 H 249 H Total Bilirubin Direct Bilirubin AST ALT Alkaline Phosphatase Total Protein Albumin COVID-19 ([facility]) COVID-19 Clin Com 08/26/24 08:05 POC Glucose Total Bilirubin 0.3 Direct Bilirubin 0.1 AST 84 H ALT 192 H Alkaline Phosphatase 123 H Total Protein 7.3 Albumin 4.0 COVID-19 ([facility]) COVID-19 Clin Com Medications Medications Current Medications Acetaminophen (Acetaminophen 325 Mg Tablet) 650 mg PO Q6H PRN PRN Reason: Headache/Pain Mild Scale (1-3) Last Admin: 08/22/24 22:03 Dose: 650 mg Al Hydroxide/Mg Hydroxide (Magnesium Hydrox/Alum Hydrox 30 Ml Oral.Susp) 30 ml PO Q6H PRN PRN Reason: Heartburn/Nausea Clonidine HCl (Clonidine Hcl 0.2 Mg Tablet) 0.2 mg PO BID [facility]; Protocol Last Admin: 08/26/24 08:40 Dose: 0.2 mg Clonidine HCl (Clonidine Hcl 0.1 Mg Tablet) 0.1 mg PO TID PRN; Protocol PRN Reason: anxiety/restlessness Last Admin: 08/25/24 21:30 Dose: 0.1 mg Doxepin HCl (Doxepin Hcl 25 Mg Capsule) 50 mg PO BEDTIME DREW Last Admin: 08/25/24 22:09 Dose: 50 mg Fluoxetine HCl (Fluoxetine Hcl 20 Mg Capsule) 60 mg PO DAILY DREW Last Admin: 08/26/24 08:40 Dose: 60 mg Folic Acid (Folic Acid 1 Mg Tablet) 1 mg PO DAILY DREW Last Admin: 08/26/24 08:40 Dose: 1 mg Gabapentin (Gabapentin 300 Mg Capsule) 600 mg PO TID DREW Last Admin: 08/26/24 08:40 Dose: 600 mg Glucose (Glucose Gel 15 Gm Gel..Gram.) 15 gm PO Q15M PRN; Protocol PRN Reason: per Hypoglycemia Standing Ord. Hydroxyzine HCl (Hydroxyzine Hcl 50 Mg Tablet) 50 mg PO Q8H PRN PRN Reason: Anxiety Last Admin: 08/26/24 08:40 Dose: 50 mg Insulin Glargine (Insulin Glargine,Hum.Rec.Anlog 100 Unit/Ml 10 Ml Vial) 50 unit SUBCUT DAILY [facility] Last Admin: 08/26/24 08:40 Dose: 50 unit Insulin Human Lispro (Insulin Lispro 100 Unit/Ml 3 Ml Vial) 0 unit SUBCUT QIDACHS [facility]; Protocol Last Admin: 08/26/24 08:41 Dose: 6 unit Ketoconazole (Ketoconazole 2 % Shampoo 120 Ml Btl) 1 appl TOPICAL DAILY [facility]; Protocol Last Admin: 08/25/24 08:44 Dose: 1 appl Levetiracetam (Levetiracetam 500 Mg Tablet) 500 mg PO BID [facility] Last Admin: 08/26/24 08:40 Dose: 500 mg Loperamide HCl (Loperamide Hcl 2 Mg Capsule) 2 mg PO Q4H PRN PRN Reason: Diarrhea Last Admin: 08/20/24 15:21 Dose: 2 mg Magnesium Hydroxide (Milk Of Magnesia 30 Ml Oral.Susp) 30 ml PO DAILY PRN PRN Reason: Constipation Last Admin: 08/23/24 08:05 Dose: 30 ml Melatonin (Melatonin 3 Mg Tablet) 9 mg PO BEDTIME PRN PRN Reason: Insomnia Last Admin: 08/25/24 22:11 Dose: 9 mg Metformin HCl (Metformin Hcl Er 500 Mg Tab.Er.24h) 1,000 mg PO BIDWM [facility] Last Admin: 08/26/24 08:40 Dose: 1,000 mg Nicotine (Nicotine 21 Mg Patch.Td24) 21 mg TRANSDERMA DAILY [facility] Last Admin: 08/26/24 08:39 Dose: 21 mg Nicotine Polacrilex (Nicotine Polacrilex 2 Mg Gum) 4 mg BUCCAL Q2H PRN PRN Reason: Nicotine Cravings Ondansetron HCl (Ondansetron Odt 4 Mg Tab.Rapdis) 4 mg TRANSLINGU Q6H PRN PRN Reason: Nausea and Vomiting Last Admin: 08/20/24 21:02 Dose: 4 mg Pharmacy Consult (Consult Rx Etoh Phenob Po Only) 1 each MISCELLANE ONCE PRN; Protocol PRN Reason: Consult order Quetiapine Fumarate (Quetiapine Fumarate 200 Mg Tablet) 200 mg PO DAILY [facility] Last Admin: 08/26/24 08:40 Dose: 200 mg Quetiapine Fumarate (Quetiapine Fumarate 400 Mg Tablet) 400 mg PO BEDTIME [facility] Last Admin: 08/25/24 22:10 Dose: 400 mg Thiamine HCl (Thiamine Hcl 100 Mg Tablet) 100 mg PO DAILY [facility] Last Admin: 08/26/24 08:40 Dose: 100 mg Trazodone HCl (Trazodone Hcl 100 Mg Tablet) 200 mg PO BEDTIME PRN PRN Reason: insomnia Last Admin: 08/25/24 22:10 Dose: 200 mg Allergies Allergies Allergy/AdvReac Type Severity Reaction Status Date / Time seafood Allergy Anaphylaxis Verified 08/18/24 12:19 Assessment & Plan Assessment & Plan (1) MDD (major depressive disorder), recurrent episode, severe: Status: Acute Code(s): F33.2 - Major depressive disorder, recurrent severe without psychotic features (2) PTSD (post-traumatic stress disorder): Status: Acute Code(s): F43.10 - Post-traumatic stress disorder, unspecified (3) Alcohol use disorder, severe, dependence: Status: Acute Code(s): F10.20 - Alcohol dependence, uncomplicated Plan Patient is a 40-year-old male with history of MDD, PTSD and alcohol use disorder who presented to [facility] via EMS due to suicidal ideation to drink himself to or cut himself secondary to increased depression. Plan: CV 15 minute safety checks Continue home medications Phenobarbital taper Addiction medicine consult Encourage groups Discharge planning 08/21: Active on unit, social with peers. Pt reports withdrawal symptoms are improving. future oriented. focused on sobriety. Pt reports he plans on attending PHP on August 28, 2024. He continues to report some anxiety and depression. He reports some difficulty staying asleep but denies any issue falling asleep. Per nursing, pt slept through the night. 08/22: Continue current management and treatment plan. : Elevated LFT's. Continue current management and treatment plan. Repeat LFT's in 1-2 days. Consider hospitalist consult. 08/24: Patient reports feeling some anxiety and depression today; focused on PHP intake on Saturday. Pt denies withdrawal symptoms; continues with phenobarbital taper. Pt reports sleeping well. denies SI/HI/VH/AH. Continue current tx plan. 08/25: Pt tested Covid positive yesterday; denies any symptoms. Pt reports feeling good today; denies SI/HI/VH/AH. denies withdrawal symptoms; phenobarbital taper completed today. LFT's to be drawn tomorrow. Plan to discharge on . Intake with PHP on Saturday. 08/26: Pt continues to deny covid symptoms. He reports feeling good and ready to go home ; pt denies SI/HI/VH/AH. sleeping well. Plan to follow up with outpatient providers. Patient educated on: diagnosis, medication risk/benefits and therapeutic strategies Reason for continued inpatient stay Substantial Risk for: stable for discharge Time Spent With Patient Time: Total time managing care of this patient today _20___ minutes.
[2024-08-26 09:05] LABS: Ammonia 42 umol/L (13-55)
[2024-08-26 11:47] LABS: Glucose, Whole Blood 290 mg/dL (60-115)
[2024-08-26 15:57] LABS: COVID-19 Test Positive (Negative); IDNOW Serial# 08D9AD1C
[2024-08-26 16:54] LABS: Glucose, Whole Blood 296 mg/dL (60-115)
[2024-08-26 20:45] LABS: Glucose, Whole Blood 221 mg/dL (60-115)
[2024-08-26 20:53] VITALS: BP 137/84; PULSE 89; RESP 16; TEMP 36.7; O2SAT 99
[2024-08-26] MEDS: cloNIDine HCL 0.1 MG TABLET PO (21:20)
[2024-08-26] MEDS: Melatonin 3 MG TABLET 9 MG PO (22:01)
[2024-08-26] MEDS: Doxepin HCl 25 MG CAPSULE 50 MG PO (22:01)
[2024-08-26] MEDS: QUEtiapine Fumarate 400 MG TABLET PO (22:02)
[2024-08-26] MEDS: traZODone HCL 100 MG TABLET 200 MG PO (22:02)
[2024-08-27 07:45] LABS: Glucose, Whole Blood 236 mg/dL (60-115)
[2024-08-27 08:00] VITALS: BP 100/53; PULSE 77; RESP 18; TEMP 36.8; O2SAT 95
[2024-08-27] MEDS: FLUoxetine HCl 20 MG CAPSULE 60 MG PO (08:11)
[2024-08-27] MEDS: Folic Acid 1 MG TABLET PO (08:11)
[2024-08-27] MEDS: Insulin Lispro 100 UNIT/ML 3 ML VIAL SUBCUT (08:11)
[2024-08-27] MEDS: Thiamine HCL 100 MG TABLET PO (08:11)
[2024-08-27] MEDS: metFORMIN HCl ER 500 MG TAB.ER.24H 1000 MG PO (08:11)
[2024-08-27] MEDS: levETIRAcetam 500 MG TABLET PO (08:11)
[2024-08-27] MEDS: Gabapentin 300 MG CAPSULE 600 MG PO (08:11)
[2024-08-27] MEDS: QUEtiapine Fumarate 200 MG TABLET PO (08:11)
[2024-08-27] MEDS: Insulin Glargine,Hum.rec.anlog 100 UNIT/ML 10 ML VIAL 50 UNIT SUBCUT (08:12)
[2024-08-27] MEDS: Nicotine 21 MG PATCH.TD24 TRANSDERMA (08:12)
[2024-08-27 10:39] LABS: COVID-19 Test Positive (Negative); IDNOW Serial# 152EDE1D
--- NOTE | 2024-08-27 10:50 | PM.PSYDC ---
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 16:06 Consult to Hospitalist Routine Comment: Consulting Provider: Hospitalist Reason For Exam: rash on forehead/head Attending physician on discharge: Walt Ingram Discharging clinician: Marissa Springer DS: Diagnosis Discharge Diagnosis (1) MDD (major depressive disorder), recurrent episode, severe: Status: Acute (2) PTSD (post-traumatic stress disorder): Status: Acute (3) Alcohol use disorder, severe, dependence: Status: Acute DS: Medications Discharge Medications Home Medications: Home Medications ?Medication ?Instructions ?Recorded ?Confirmed hydroxyzine HCl 25 mg tablet 50 mg PO Q8H PRN Anxiety 08/18/24 08/18/24 insulin glargine 100 unit/mL 60 unit subcut BEDTIME 08/18/24 08/18/24 subcutaneous solution (Lantus U-100 Insulin) insulin glargine 100 unit/mL 60 unit subcut QAM 08/18/24 08/18/24 subcutaneous solution (Lantus U-100 Insulin) insulin lispro 100 unit/mL See Protocol subcut 08/18/24 08/18/24 subcutaneous pen (Humalog KwikPen TIDWM@0800,1200,1700 (U-100) Insulin) melatonin 10 mg tablet 10 mg PO BEDTIME PRN Insomnia 08/18/24 08/18/24 nicotine 21 mg/24 hr daily 1 patch transdermal DAILY 08/18/24 08/18/24 transdermal patch Previous Rx's ?Medication ?Instructions ?Recorded metformin 500 mg tablet,extended 1,000 mg (2 x 500 mg) PO BIDWM 07/06/24 release 24 hr #120 tabs clonidine HCl 0.2 mg tablet 0.2 mg PO BID 30 days #60 tabs 08/26/24 doxepin 50 mg capsule 50 mg PO BEDTIME 08/26/24 Anxiety,Depression,Insomnia 30 days #30 caps fluoxetine 60 mg tablet 60 mg PO DAILY 30 days #30 tabs 08/26/24 gabapentin 600 mg tablet 600 mg PO TID 30 days #90 tabs 08/26/24 ketoconazole 2 % shampoo 1 appl topical DAILY 30 days #120 08/26/24 mL levetiracetam 500 mg tablet 500 mg PO BID 30 days #60 tabs 08/26/24 quetiapine 200 mg tablet 200 mg PO DAILY 30 days #30 tabs 08/26/24 quetiapine 400 mg tablet 400 mg PO BEDTIME 30 days #30 tabs 08/26/24 trazodone 100 mg tablet 200 mg (2 x 100 mg) PO BEDTIME PRN 08/26/24 insomnia 30 days #60 tabs Mental Status Exam Mental Status Exam Narrative: Pt is alert and oriented; behavior is cooperative and calm; dressed in casual attire; mood is described as good ; eye contact appropriate; Speech is normal rate, volume and not pressured; thought process is organized and goal directed; Thought content is on tx; otherwise pertinent to relevant topics and without any delusional content, paranoid ideations or grandiosity; denies SI/HI/VH/AH. Data Data Completed and Pending Completed studies during hospitalization [Text1]: 08/20/24 08/20/24 08/20/24 11:35 16:38 20:38 Sodium Potassium Chloride Carbon Dioxide Anion Gap BUN Creatinine Estim Creat Clear Calc Estimated GFR POC Glucose 278 H 271 H 261 H Random Glucose Fasting Glucose Calcium Magnesium Total Bilirubin Direct Bilirubin AST ALT Alkaline Phosphatase Ammonia Total Protein Albumin Triglycerides Cholesterol LDL Cholesterol, Calc HDL Cholesterol COVID-19 ([facility]) COVID-19 Spindle 08/21/24 08/21/24 08/21/24 07:49 12:03 16:43 Sodium Potassium Chloride Carbon Dioxide Anion Gap BUN Creatinine Estim Creat Clear Calc Estimated GFR POC Glucose 234 H 256 H 303 H Random Glucose Fasting Glucose Calcium Magnesium Total Bilirubin Direct Bilirubin AST ALT Alkaline Phosphatase Ammonia Total Protein Albumin Triglycerides Cholesterol LDL Cholesterol, Calc HDL Cholesterol COVID-19 ([facility]) COVID-19 Spindle 08/21/24 08/22/24 08/22/24 20:30 07:38 11:54 Sodium Potassium Chloride Carbon Dioxide Anion Gap BUN Creatinine Estim Creat Clear Calc Estimated GFR POC Glucose 316 H 273 H 266 H Random Glucose Fasting Glucose Calcium Magnesium Total Bilirubin Direct Bilirubin AST ALT Alkaline Phosphatase Ammonia Total Protein Albumin Triglycerides Cholesterol LDL Cholesterol, Calc HDL Cholesterol COVID-19 ([facility]) COVID-19 Clin Com 08/22/24 08/22/24 08/23/24 16:43 20:12 07:49 Sodium Potassium Chloride Carbon Dioxide Anion Gap BUN Creatinine Estim Creat Clear Calc Estimated GFR POC Glucose 288 H 325 H 278 H Random Glucose Fasting Glucose Calcium Magnesium Total Bilirubin Direct Bilirubin AST ALT Alkaline Phosphatase Ammonia Total Protein Albumin Triglycerides Cholesterol LDL Cholesterol, Calc HDL Cholesterol COVID-19 ([facility]) COVID-19 Clin Com 08/23/24 08/23/24 08/23/24 07:53 11:24 16:25 Sodium 133 L Potassium 4.0 Chloride 99 Carbon Dioxide 24 Anion Gap 14 BUN 9 Creatinine 0.72 Estim Creat Clear Calc 101.0 Estimated GFR > 60 POC Glucose 317 H 304 H Random Glucose 257 H Fasting Glucose 259 H Calcium 9.3 Magnesium 1.7 Total Bilirubin 0.3 Direct Bilirubin AST 108 H ALT 170 H Alkaline Phosphatase 116 Ammonia Total Protein 7.2 Albumin 3.9 Triglycerides 169 H Cholesterol 171 LDL Cholesterol, Calc 94 HDL Cholesterol 44 COVID-19 ([facility]) COVID-19 Clin Com 08/23/24 08/23/24 08/24/24 19:41 21:40 07:44 Sodium Potassium Chloride Carbon Dioxide Anion Gap BUN Creatinine Estim Creat Clear Calc Estimated GFR POC Glucose 359 H* 281 H 246 H Random Glucose Fasting Glucose Calcium Magnesium Total Bilirubin Direct Bilirubin AST ALT Alkaline Phosphatase Ammonia Total Protein Albumin Triglycerides Cholesterol LDL Cholesterol, Calc HDL Cholesterol COVID-19 ([facility]) COVID-19 Clin Com 08/24/24 08/24/24 08/24/24 11:32 11:50 16:43 Sodium Potassium Chloride Carbon Dioxide Anion Gap BUN Creatinine Estim Creat Clear Calc Estimated GFR POC Glucose 221 H 309 H Random Glucose Fasting Glucose Calcium Magnesium Total Bilirubin Direct Bilirubin AST ALT Alkaline Phosphatase Ammonia Total Protein Albumin Triglycerides Cholesterol LDL Cholesterol, Calc HDL Cholesterol COVID-19 ([facility]) Positive A COVID-19 Clin Com See Note 08/24/24 08/25/24 08/25/24 20:20 07:50 11:35 Sodium Potassium Chloride Carbon Dioxide Anion Gap BUN Creatinine Estim Creat Clear Calc Estimated GFR POC Glucose 288 H 256 H 251 H Random Glucose Fasting Glucose Calcium Magnesium Total Bilirubin Direct Bilirubin AST ALT Alkaline Phosphatase Ammonia Total Protein Albumin Triglycerides Cholesterol LDL Cholesterol, Calc HDL Cholesterol COVID-19 ([facility]) COVID-19 Clin Com 08/25/24 08/25/24 08/26/24 16:52 20:51 07:40 Sodium Potassium Chloride Carbon Dioxide Anion Gap BUN Creatinine Estim Creat Clear Calc Estimated GFR POC Glucose 283 H 300 H 249 H Random Glucose Fasting Glucose Calcium Magnesium Total Bilirubin Direct Bilirubin AST ALT Alkaline Phosphatase Ammonia Total Protein Albumin Triglycerides Cholesterol LDL Cholesterol, Calc HDL Cholesterol COVID-19 ([facility]) COVID-19 [employer] Com 08/26/24 08/26/24 08/26/24 08:05 11:43 15:45 Sodium Potassium Chloride Carbon Dioxide Anion Gap BUN Creatinine Estim Creat Clear Calc Estimated GFR POC Glucose 290 H Random Glucose Fasting Glucose Calcium Magnesium Total Bilirubin 0.3 Direct Bilirubin 0.1 AST 84 H ALT 192 H Alkaline Phosphatase 123 H Ammonia 42 Total Protein 7.3 Albumin 4.0 Triglycerides Cholesterol LDL Cholesterol, Calc HDL Cholesterol COVID-19 ([facility]) Positive A COVID-19 [employer] Com See Note 08/26/24 08/26/24 08/27/24 16:48 20:40 07:37 Sodium Potassium Chloride Carbon Dioxide Anion Gap BUN Creatinine Estim Creat Clear Calc Estimated GFR POC Glucose 296 H 221 H 236 H Random Glucose Fasting Glucose Calcium Magnesium Total Bilirubin Direct Bilirubin AST ALT Alkaline Phosphatase Ammonia Total Protein Albumin Triglycerides Cholesterol LDL Cholesterol, Calc HDL Cholesterol COVID-19 ([facility]) COVID-19 Spindle 08/27/24 09:56 Sodium Potassium Chloride Carbon Dioxide Anion Gap BUN Creatinine Estim Creat Clear Calc Estimated GFR POC Glucose Random Glucose Fasting Glucose Calcium Magnesium Total Bilirubin Direct Bilirubin AST ALT Alkaline Phosphatase Ammonia Total Protein Albumin Triglycerides Cholesterol LDL Cholesterol, Calc HDL Cholesterol COVID-19 ([facility]) Positive A [email or web address] See Note DS: Summary Hospital Course Hospital Course: Patient is a 40-year-old male with history of MDD, PTSD and alcohol use disorder who presented to [facility] via EMS due to suicidal ideation to drink himself to or cut himself secondary to increased depression. Per crisis report, patient expressed suicidal ideation while at a liquor store through means of drinking himself to or cutting himself . On arrival to ER, patient had multiple superficial lacerations on his right forearm and BAL of 219. Patient was recently admitted to on 07/03/2024 to 07/07/2024. Patient had providers through [facility]. denied HI/AH/VH. Patient has history of not following up with aftercare providers. Patient reported he has not been taking all of his medications as prescribed. He reported being recently discharged from [facility] on 08/07/2024 with referrals for therapy and psychiatry through [facility] and PHP intake scheduled for 08/28/2024 at 08:00. Patient reports he did not follow up with [facility] after discharge. Patient denies history of suicide attempts; pt stating, I am too chicken to go through with it . Patient reports he has been cutting since he was a preteen. During admission assessment, patient presents alert and oriented x3. Calm and cooperative. Patient reports feeling depressed , patient stated, I was having a bad day and started drinking. I was thinking bad thoughts about myself . Patient denies suicidal ideation at this time. Patient denies HI/VH/AH. Patient reports he has been drinking 24 cans of beer a day for the last month and prior to that drinking 7-12 cans of beer a day . Patient reports he increased his drinking due to not getting the same feeling . Patient reports he has been drinking to shut down his feelings and thoughts . denies history of SA. He does report history of SIB of superficial cuts. He reports eating well however, not sleeping well at night. Denies nightmares. Patient reports he would like help with getting connected to an [facility] and setting up appointments with his outpatient providers through [facility]. Plan: CV 15 minute safety checks Continue home medications Phenobarbital taper Addiction medicine consult Encourage groups Discharge planning Active on unit, social with peers. Pt reports withdrawal symptoms are improving. future oriented. focused on sobriety. Pt reports he plans on attending PHP on August 28, 2024. He continues to report some anxiety and depression. He reports some difficulty staying asleep but denies any issue falling asleep. Per nursing, pt slept through the night. Elevated LFT's. Continue current management and treatment plan. Repeat LFT's in 1-2 days. Consider hospitalist consult. Patient reports feeling some anxiety and depression today; focused on PHP intake on Saturday. Pt denies withdrawal symptoms; continues with phenobarbital taper. Pt reports sleeping well. denies SI/HI/VH/AH. Continue current tx plan. Pt tested Covid positive yesterday; denies any symptoms. Pt reports feeling good today; denies SI/HI/VH/AH. denies withdrawal symptoms; phenobarbital taper completed today. LFT's to be drawn tomorrow. Plan to discharge on . Intake with PHP on Saturday. Pt continues to deny covid symptoms. He reports feeling good and ready to go home ; pt denies SI/HI/VH/AH. sleeping well. Plan to follow up with outpatient providers. Pt advised to follow up with his PCP regarding LFTs. Time spent discussing smoking cessation with patient: 3 to 10 minutes Status at Discharge Cognitive/behavioral status at discharge: Patient was interviewed prior to discharge and found to be fully oriented and without SI or HI. Patient has insight and demonstrates good judgment in terms of wanting to pursue treatment. Patient has a safety plan that includes presenting to the closest ER or calling 911 if feeling unsafe. Functional status at discharge: independent ambulation Overall status at discharge: patient is back to baseline Time Spent with Patient Time attestation: Total time managing care of this patient today _20___ minutes. Time spent: Less than 30 minutes Discharge Plan Discharge Anticipated Discharge Date/Time: 08/27/24 10:30 Patient Disposition: Home, Self-Care Discharge Diagnosis: MDD, PTSD, Alcohol use d/o Referrals: [facility] Intake [Other] - 08/28/24 8:00 am (Intake appointment) [facility] [Provider Group] - 09/04/24 1:30 pm (you have a follow up appt with your primary care office on 09-04-24 @ 1:30pm) Discharge Medications: New ketoconazole 2 % Shampoo 1 appl topical DAILY 30 Days Qty: 120 0RF Protocol: Apply to: Apply to: hair fluoxetine 60 mg tablet 60 mg PO DAILY 30 Days Qty: 30 0RF Continued metformin 500 mg Tablet Extended Release 24 Hr 1,000 mg PO BIDWM Qty: 120 0RF hydroxyzine HCl 25 mg tablet 50 mg PO Q8H PRN (Reason: Anxiety) nicotine 21 mg/24 hr Patch 24 Hour 1 patch TRANSDERMAL DAILY melatonin 10 mg Tablet 10 mg PO BEDTIME PRN (Reason: Insomnia) insulin glargine [Lantus U-100 Insulin] 100 unit/mL solution 60 unit subcut BEDTIME insulin glargine [Lantus U-100 Insulin] 100 unit/mL solution 60 unit subcut QAM insulin lispro [Humalog KwikPen Insulin] 100 unit/mL insulin pen See Protocol subcut TIDWM@0800,1200,1700 Protocol: Insulin Correction Scale Less than or equal to 110 ---- Give (units): 0 111 to 150 Give (units): 0 151 to 200 Give (units): 2 201 to 250 Give (units): 4 251 to 300 Give (units): 6 301 to 350 Give (units): 8 Greater than 350 Give (units): 10 Call MD if Blood Glucose > : 350 gabapentin 600 mg tablet 600 mg PO TID 30 Days Qty: 90 0RF levetiracetam 500 mg Tablet 500 mg PO BID 30 Days Qty: 60 0RF quetiapine 200 mg tablet 200 mg PO DAILY 30 Days Qty: 30 0RF clonidine HCl 0.2 mg tablet 0.2 mg PO BID 30 Days Qty: 60 0RF trazodone 100 mg tablet 200 mg PO BEDTIME PRN (Reason: insomnia) 30 Days Qty: 60 0RF quetiapine 400 mg tablet 400 mg PO BEDTIME 30 Days Qty: 30 0RF Changed doxepin 50 mg Capsule 50 mg PO BEDTIME 30 Days Qty: 30 0RF Discontinued fluoxetine 20 mg capsule 60 mg PO DAILY Qty: 90 0RF thiamine HCl (vitamin B1) 100 mg Tablet 100 mg PO BID folic acid 1 mg Tablet 1 mg PO DAILY Discharge Orders: Discharge Order (Routine); Ordered 08/27/24 Ordered By: Marissa Springer Diet: Regular diet Activity on Discharge: As tolerated Stand Alone Forms: Patient Portal Discharge page, Community Support Print Language: German Care Plan Goals: Maintain mood and safe behaviors Take medications as prescribed Continue to pursue sobriety Practice coping skills Continue with outpatient providers and reach out to them as needed Health Concerns: Mood stability and behaviors Sobriety Follow up with PCP regarding elevated liver function tests. Plan of Treatment: Follow up with your PCP, psychiatric provider and other outpatient providers regarding above concerns Take medications as prescribed Assessment: Patient was interviewed prior to discharge and found to be fully oriented and without SI or HI. Patient has insight and demonstrates good judgment in terms of wanting to pursue treatment. Patient has a safety plan that includes presenting to the closest ER or calling 911 if feeling unsafe. Discharge Date/Time: 08/27/24 11:15
== END 2024-08-27 11:15 | disposition home or self-care (01) | DRG 885 ==
LOC: HO.ED 14:00 → HO.PADLT16 08-19 13:36
PROVIDERS: Emergency Medicine; Admitting Provider Registered Nurse; Emergency Provider Emergency Medicine; Responsible Provider Registered Nurse; Visit Provider Psychiatry & Neurology Psychiatry
DX: F33.2 Major depressive disorder, recurrent severe without psychotic features (principal); U07.1 COVID-19; R45.851 Suicidal ideations; L21.9 Seborrheic dermatitis, unspecified; F10.20 Alcohol dependence, uncomplicated; F17.210 Nicotine dependence, cigarettes, uncomplicated; Z71.6 Tobacco abuse counseling; F43.10 Post-traumatic stress disorder, unspecified; Y90.7 Blood alcohol level of 200-239 mg/100 ml; Z79.4 Long term (current) use of insulin; Z79.84 Long term (current) use of oral hypoglycemic drugs; Z79.899 Other long term (current) drug therapy
CPT/HCPCS: 36415; 80048; 80053; 80061; 80076; 80307; 81001; 82140; 82947; 83735; 84425; 85025; 87635; 93005; 99285; S9485

== ENCOUNTER → 2024-08-19 08:04 | Outpatient (BNV) | payer MEDICARE, MEDICAID, SELFPAY | PROVIDERS: Admitting Provider Registered Nurse; Emergency Provider Emergency Medicine; Visit Provider Internal Medicine Cardiovascular Disease | DX: R94.31 Abnormal electrocardiogram [ECG] [EKG] (principal) | CPT/HCPCS: 93010 ==

== ENCOUNTER 2024-08-19 13:21 | Outpatient (BNV) | payer MEDICARE, MEDICAID, SELFPAY | END 2024-08-21 | PROVIDERS: Admitting Provider Registered Nurse; Emergency Provider Emergency Medicine; Responsible Provider Registered Nurse; Visit Provider Internal Medicine Cardiovascular Disease | DX: I45.81 Long QT syndrome (principal) | CPT/HCPCS: 93010 ==

== ENCOUNTER → 2024-08-19 13:21 | Outpatient (BNV) | payer MEDICARE, MEDICAID, SELFPAY | PROVIDERS: Admitting Provider Registered Nurse; Emergency Provider Emergency Medicine; Responsible Provider Registered Nurse; Visit Provider Registered Nurse | DX: F33.2 Major depressive disorder, recurrent severe without psychotic features (principal); F10.20 Alcohol dependence, uncomplicated; F43.11 Post-traumatic stress disorder, acute | CPT/HCPCS: 90792; 99231; 99232; 99238 ==

== ENCOUNTER 2024-09-02 14:59 | Emergency (ER) | payer MEDICARE, MEDICAID, SELFPAY ==
--- NOTE | ~2024-09-02 | CT_ITS ---
EXAMINATION: CT HEAD WITHOUT CONTRAST CLINICAL INFORMATION: Fall, intoxicated COMPARISON: CT head 11/21/2022 TECHNIQUE: Contiguous axial imaging was performed from the skull base to vertex without intravenous administration of contrast. This CT examination was performed using dose optimization techniques as appropriate, variously including the following: *Automated exposure control *Adjustment of mA and/or kV according to patient size (this includes techniques or standardized protocols for targeted exams where dose is matched to indication/reason for exam; i.e. extremities or head) *Use of iterative reconstruction technique DLP: 805 mGy-cm FINDINGS: There is no evidence of acute intracranial hemorrhage or edematous large vessel territorial infarction. No abnormal mass effect or midline shift is seen. [place] to white matter differentiation is well preserved. No abnormal extra-axial fluid collections are identified. The lateral ventricles are symmetrical and slightly enlarged, similar to prior CT of 11/21/2022. Redemonstrated is a hypodense 6 mm linear lesion in the subtentorial left posterior fossa, Hounsfield measurements -60, likely lipoma, stable from previous. No acute calvarial fracture.. Mucosal thickening in the posterior right maxillary sinus. Paranasal sinuses otherwise and mastoid air cells are well-aerated. CT/CT head/brain wo IV con IMPRESSION: No CT evidence of acute intracranial hemorrhage or edematous territorial infarction.. Stable linear density in the left subtentorial subdural space, likely lipoma. Right maxillary sinus mucosal thickening. Electronically signed by: Radames Wagner MD 09/02/2024 07:05 PM [facility]
--- NOTE | ~2024-09-02 | XR_ITS ---
EXAMINATION: XR LUMBOSACRAL SPINE CLINICAL INFORMATION: Fell down, lumbar spine injury and pain COMPARISON: None available. TECHNIQUE: Four views of the lumbosacral spine. FINDINGS: The visualized lumbar vertebrae are intact with normal alignment. There is mild decrease in L5-S1 disc height. Bilateral 12th ribs are rudimentary. Embolization coils are seen in medial right upper abdomen. XR/XR lumbar spine 2-3V IMPRESSION: 1. Mild decrease in L5-S1 disc height, could represent normal variant or mild degenerative lumbar disc disease. 2. No fracture or dislocation of lumbar spine is seen. Electronically signed by: Silva Johnston MD 09/03/2024 07:18 AM [facility]
[2024-09-02 15:15] VITALS: BP 153/77; PULSE 115; O2SAT 98; BMI 34.2
--- NOTE | 2024-09-02 15:24 | PC.NURSE ---
Patient reports SI with plan to jump off 2nd story apartment he was staying in with his mom. Patient states drank a case of 24 ounce beers and then fell down the stairs hitting his head with LOC x 2 minutes. Patient with white powder in nose - stated snorted gabapentin to stop the pain he had after falling . Patient states he is crisis and want to be admitted upstairs because he is homeless after his mom kicked him out. Reports left here x 1 week ago and has been drinking since than. States no hx of seizures but has needed ativan in the past. States wants to go to [facility] in [place] because they said he could go back. Patient with multiple superficial cuts to left forearm - states did it because of abandonment issues
[2024-09-02 15:31] LABS: Glucose, Whole Blood 376 mg/dL (60-115)
--- NOTE | 2024-09-02 16:20 | PC.NURSE ---
Patient agitated that he has not yet been seen by provider. Demanding IV pain medication. Able to be re-directed for short periods of time. 1:[address]
[2024-09-02 16:32] VITALS: BP 114/73; PULSE 122; RESP 18; TEMP 36.6; O2SAT 94
--- NOTE | 2024-09-02 17:22 | ED.PSYCH ---
HPI - Psych General Chief Complaint: Psychiatric Symptoms Stated Complaint: ETOH,SI,SELF-HARMFALL DOWN STAIRS,+HS,POC 404 Time Seen by Provider: 09/02/24 16:06 History of Present Illness HPI Narrative: Patient is a 40-year-old male reports drinking a case beer just prior to arrival. Question fell down a few steps. Complaining of question hitting head. There was no loss of consciousness. There was no nausea no vomiting. Patient is from home. Also complaining of lower back pain. Related Data Home Medications ?Medication ?Instructions ?Recorded ?Confirmed hydroxyzine HCl 25 mg tablet 50 mg PO Q8H PRN Anxiety 08/18/24 08/18/24 insulin glargine 100 unit/mL 60 unit subcut BEDTIME 08/18/24 08/18/24 subcutaneous solution (Lantus U-100 Insulin) insulin glargine 100 unit/mL 60 unit subcut QAM 08/18/24 08/18/24 subcutaneous solution (Lantus U-100 Insulin) insulin lispro 100 unit/mL See Protocol subcut 08/18/24 08/18/24 subcutaneous pen (Humalog KwikPen TIDWM@0800,1200,1700 (U-100) Insulin) melatonin 10 mg tablet 10 mg PO BEDTIME PRN Insomnia 08/18/24 08/18/24 nicotine 21 mg/24 hr daily 1 patch transdermal DAILY 08/18/24 08/18/24 transdermal patch Previous Rx's ?Medication ?Instructions ?Recorded metformin 500 mg tablet,extended 1,000 mg (2 x 500 mg) PO BIDWM 07/06/24 release 24 hr #120 tabs clonidine HCl 0.2 mg tablet 0.2 mg PO BID 30 days #60 tabs 08/26/24 doxepin 50 mg capsule 50 mg PO BEDTIME 08/26/24 Anxiety,Depression,Insomnia 30 days #30 caps fluoxetine 60 mg tablet 60 mg PO DAILY 30 days #30 tabs 08/26/24 gabapentin 600 mg tablet 600 mg PO TID 30 days #90 tabs 08/26/24 ketoconazole 2 % shampoo 1 appl topical DAILY 30 days #120 08/26/24 mL levetiracetam 500 mg tablet 500 mg PO BID 30 days #60 tabs 08/26/24 quetiapine 200 mg tablet 200 mg PO DAILY 30 days #30 tabs 08/26/24 quetiapine 400 mg tablet 400 mg PO BEDTIME 30 days #30 tabs 08/26/24 trazodone 100 mg tablet 200 mg (2 x 100 mg) PO BEDTIME PRN 08/26/24 insomnia 30 days #60 tabs Allergies Allergy/AdvReac Type Severity Reaction Status Date / Time seafood Allergy Anaphylaxis Verified 09/02/24 15:16 Review of Systems Review of Systems: No urinary incontinence, no focal weakness. Yes all other systems are reviewed and are negative [facility] Past Medical History Attestation statement: The following information was validated with the patient. Medical History Recurrent major depression PTSD (post-traumatic stress disorder) Alcohol use disorder, severe, dependence Diabetes mellitus, type 2 Social History Social History Household Members: Family Housing: Apartment Do you presently have visiting nurse or other home services: No Alcohol intake: current Alcohol intake frequency: 3 or more drinks per day Alcohol type: beer and hard liquor Patient Tobacco Use Status: Current everyday Tobacco user Tobacco use type: Cigarette Cigarette Packs Per Day: 0.5 Cigarettes Per Day: 10.0 Smoked in Last 30 Days: Yes e-Cigarette/Vaping Use: Currently Using Second Hand Smoke Exposure: No Use of substances other than those prescribed or required for medical reasons: No Advance Directives: No Advance Directives Information Provided: No service: No Sexual orientation: Straight/Heterosexual Physical Exam Vital Signs: Vital Signs: Last Vital Signs Temp 98.0 F 09/02/24 22:22 Pulse 86 09/02/24 22:22 Resp 20 09/02/24 22:22 BP 129/79 09/02/24 22:22 Pulse Ox 96 09/02/24 22:22 O2 Del Method Room Air 09/02/24 22:22 BMI result Body Mass Index 34.2 Appearance: Alert. Oriented X3. No acute distress. Eyes: Pupils equal, round and reactive to light. ENT: Pharynx normal. Neck: Normal inspection. Neck supple. No lymph nodes noted. No crepitus CVS: Normal heart rate and rhythm. Pulses normal. Normal S1 and S2 Respiratory: No respiratory distress. Breath sounds normal. No Wheezing. No rales Abdomen: Soft and nontender. No rigidity. No distention. good BS x4 Skin: Skin warm and dry. Normal skin color. Normal skin turgor. Positive abrasion to the left forearm. Extremities: No lower extremity edema. Neurovascular intact to all extremities. No Lacerations. No Rash Neuro: Oriented X 3. No motor deficit. No sensory deficit. Moving all extermities. No slurred speech Medications Administered Discontinued Medications Generic Name Dose Route Start Last Admin Trade Name Freq PRN Reason Stop Dose Admin Diphtheria/Tetanus/Acell Pertussis 0.5 ml 09/02/24 17:21 09/02/24 17:31 Diphth,Pertus(Acell),Tet Adult 0.5 Ml Syringe IM 09/02/24 17:22 0.5 ml .ONCE ONE Administration Sodium Chloride 1,000 mls @ 999 mls/hr 09/02/24 18:15 09/02/24 20:20 Ns IV 09/02/24 19:15 Infused .Q1H1M DREW Infusion Lorazepam 1 mg 09/02/24 17:18 09/02/24 17:26 Lorazepam 1 Mg Tablet PO 09/02/24 17:19 1 mg ONCE ONE Administration Lorazepam 2 mg 09/03/24 01:45 09/03/24 01:52 Lorazepam 1 Mg Tablet PO 09/03/24 01:46 2 mg ONCE ONE Administration Medical Decision Making Lab Data 09/02/24 17:30 09/02/24 17:30 Labs: Lab Results 09/02/24 09/02/24 09/02/24 Range/Units 15:28 17:30 20:36 WBC 10.2 (4.8-10.8) X10*3/uL RBC 5.65 (4.60-5.80) X10*6/uL Hgb 15.6 (14.0-18.0) g/dl Hct 45.2 (42.0-52.0) % MCV 80.0 (80.0-98.0) fL MCH 27.6 (27.0-33.0) pg MCHC 34.5 (31.0-36.0) g/dl RDW 14.7 (11.0-16.0) % Plt Count 328 (160-400) X10*3/uL MPV 9.7 (9.4-12.4) fL Immature Gran % (Auto) 0.3 (0.0-0.4) % Neut % (Auto) 50.6 (45-73) % Lymph % (Auto) 41.3 H (20-40) % [place] % (Auto) 6.3 (2-11) % Eos % (Auto) 0.5 (0-4) % Baso % (Auto) 1.0 (0-2) % Lymph # (Auto) 4.2 (1.2-4.9) X10*3/uL [place] # (Auto) 0.6 (0.1-1.2) X10*3/uL Eos # (Auto) 0.1 (0.0-0.4) X10*3/uL Baso # (Auto) 0.1 (0.0-0.2) X10*3/uL Abs Immat Gran (auto) 0.03 (0.00-0.03) X10*3/uL Absolute Neuts (auto) 5.2 (2.0-8.3) x10*3/uL Absolute Nucleated RBC 0.000 (0.0-0.012) X10*3/uL Nucleated RBC % (auto) 0.0 (0.0-0.2) /100WBC Sodium 139 (135-145) mmol/L Potassium 3.6 (3.3-5.1) mmol/L Chloride 103 (96-108) mmol/L Carbon Dioxide 17 L (22-29) mmol/L Anion Gap 23 H (12-20) BUN 6 L (9-16) mg/dL Creatinine 0.83 (0.5-1.4) mg/dL Estim Creat Clear Calc 153.0 Estimated GFR > 60 POC Glucose 376 H* 236 H (60-115) mg/dL Random Glucose 347 H (60-115) mg/dL Calcium 10.2 D (8.4-10.2) mg/dL Ethyl Alcohol 206 mg/dL Discharge Plan Discharge Clinical Impression: Alcohol use disorder, severe, dependence, Suicidal behavior Prescriptions: No Action metformin 500 mg Tablet Extended Release 24 Hr 1,000 mg PO BIDWM Qty: 120 0RF hydroxyzine HCl 25 mg tablet 50 mg PO Q8H PRN (Reason: Anxiety) nicotine 21 mg/24 hr Patch 24 Hour 1 patch TRANSDERMAL DAILY melatonin 10 mg Tablet 10 mg PO BEDTIME PRN (Reason: Insomnia) insulin glargine [Lantus U-100 Insulin] 100 unit/mL solution 60 unit subcut BEDTIME insulin glargine [Lantus U-100 Insulin] 100 unit/mL solution 60 unit subcut QAM insulin lispro [Humalog KwikPen Insulin] 100 unit/mL insulin pen See Protocol subcut TIDWM@0800,1200,1700 Protocol: Insulin Correction Scale Less than or equal to 110 ---- Give (units): 0 111 to 150 Give (units): 0 151 to 200 Give (units): 2 201 to 250 Give (units): 4 251 to 300 Give (units): 6 301 to 350 Give (units): 8 Greater than 350 Give (units): 10 Call MD if Blood Glucose > : 350 ketoconazole 2 % Shampoo 1 appl topical DAILY 30 Days Qty: 120 0RF Protocol: Apply to: Apply to: hair fluoxetine 60 mg tablet 60 mg PO DAILY 30 Days Qty: 30 0RF doxepin 50 mg Capsule 50 mg PO BEDTIME 30 Days Qty: 30 0RF gabapentin 600 mg tablet 600 mg PO TID 30 Days Qty: 90 0RF levetiracetam 500 mg Tablet 500 mg PO BID 30 Days Qty: 60 0RF quetiapine 200 mg tablet 200 mg PO DAILY 30 Days Qty: 30 0RF clonidine HCl 0.2 mg tablet 0.2 mg PO BID 30 Days Qty: 60 0RF trazodone 100 mg tablet 200 mg PO BEDTIME PRN (Reason: insomnia) 30 Days Qty: 60 0RF quetiapine 400 mg tablet 400 mg PO BEDTIME 30 Days Qty: 30 0RF Interventions: Roach-Suicide Risk Severity Scale Last Done: 09/02/24 15:19 Print Language: Nepali
[2024-09-02] MEDS: LORazepam 1 MG TABLET PO (17:26)
[2024-09-02] MEDS: Diphth,Pertus(ACell),Tet Adult 0.5 ML SYRINGE IM (17:31)
[2024-09-02 17:34] LABS: MANUAL DIFF FLAG NO
[2024-09-02 17:45] LABS: Basophils Absolute Auto 0.1 X10*3/uL (0.0-0.2); Eosinophils Absolute Auto 0.1 X10*3/uL (0.0-0.4); Eosinophils Percent Auto 0.5 % (0-4); Hematocrit 45.2 % (42.0-52.0); Hemoglobin 15.6 g/dl (14.0-18.0); Imm Gran Abs Auto 0.03 X10*3/uL (0.00-0.03); Imm Gran Pct Auto 0.3 % (0.0-0.4); Lymphocytes Absolute Auto 4.2 X10*3/uL (1.2-4.9); Lymphocytes Percent Auto 41.3 % (20-40); Mean Corpuscular HGB Conc 34.5 g/dl (31.0-36.0); Mean Corpuscular Hemoglobin 27.6 pg (27.0-33.0); Mean Platelet Volume 9.7 fL (9.4-12.4); Monocytes Absolute Auto 0.6 X10*3/uL (0.1-1.2); Monocytes Percent Auto 6.3 % (2-11); Neutrophils Absolute Auto 5.2 x10*3/uL (2.0-8.3); Neutrophils Percent Auto 50.6 % (45-73); Platelet Count 328 X10*3/uL (160-400); Red Blood Count 5.65 X10*6/uL (4.60-5.80); Red Cell Distribution Width 14.7 % (11.0-16.0); White Blood Count 10.2 X10*3/uL (4.8-10.8)
[2024-09-02 18:01] LABS: Anion Gap 23 (12-20); Blood Urea Nitrogen 6 mg/dL (9-16); Calcium 10.2 mg/dL (8.4-10.2); Carbon Dioxide 17 mmol/L (22-29); Chloride 103 mmol/L (96-108); Estimated Glomerular Filt Rate > 60; Ethanol 206 mg/dL; Glucose Random 347 mg/dL (60-115); Potassium 3.6 mmol/L (3.3-5.1); Sodium 139 mmol/L (135-145)
[2024-09-02] MEDS: 0.9 % Sodium Chloride 1,000 ML 999 ML IV (18:19)
[2024-09-02 18:34] VITALS: BP 127/70; PULSE 106; RESP 16; TEMP 37.6; O2SAT 93
[2024-09-02 19:41] VITALS: BP 127/61; PULSE 102; RESP 14; O2SAT 96
[2024-09-02 20:00] VITALS: TEMP 37.2
[2024-09-02 20:40] LABS: Glucose, Whole Blood 236 mg/dL (60-115)
[2024-09-02 22:22] VITALS: BP 129/79; PULSE 86; RESP 20; TEMP 36.7; O2SAT 96
--- NOTE | 2024-09-03 | ECG_ITS ---
Test Reason : rule out prolong qtc Blood Pressure : / mmHG Vent. Rate : 072 BPM Atrial Rate : 072 BPM P-R Int : 136 ms QRS Dur : 094 ms QT Int : 450 ms P-R-T Axes : 021 011 020 degrees QTc Int : 492 ms Normal sinus rhythm Cannot rule out Anterior infarct , age undetermined Abnormal ECG When compared with ECG of 22-AUG-2024 20:56, No significant change was found Referred By: Vickie Newell Electronically Signed By:LA MCKOY MD
[2024-09-03] MEDS: LORazepam 1 MG TABLET 2 MG PO ×3 (01:52→12:03)
[2024-09-03 02:15] LABS: Amphetamine Screen Urine Not Detected (Not Detect); Barbiturates, Urine POSITIVE (Not Detect); Benzodiazepines Screen Urine Not Detected (Not Detect); Buprenorphine Scr Not Detected (Not Detect); Cannabinoid Screen Urine POSITIVE (Not Detect); Cocaine Screen Urine POSITIVE (Not Detect); Fentanyl, urine Not Detected (Not Detect); Methadone Screen, Urine Not Detected (Not Detect); Opiate Screen Urine Not Detected (Not Detect); Oxycodone Screen Urine Not Detected (Not Detect); Phencyclidine Screen Urine Not Detected (Not Detect)
[2024-09-03] MEDS: Ondansetron ODT 4 MG TAB.RAPDIS TRANSLINGU (06:13)
[2024-09-03 06:30] VITALS: BP 138/95; PULSE 89; RESP 18; TEMP 36.7; O2SAT 97
--- NOTE | 2024-09-03 07:25 | PC.NURSE ---
Assumed care of patient at 0645, patient appears to be anxious this am, reporting that he is withdrawing from alcohol. CIWA score of 13. Dr. Hernandes placed order for ativan which was administered per DEC. Pt is now resting on bed in 3, no apparent distress noted. pt also informed this RN that he is a diabetic and has not received his medications. Med Rec complete and DO aware
[2024-09-03 07:28] LABS: Glucose, Whole Blood 231 mg/dL (60-115)
[2024-09-03] MEDS: QUEtiapine Fumarate 200 MG TABLET PO (08:18)
[2024-09-03] MEDS: FLUoxetine HCl 20 MG CAPSULE 60 MG PO (08:18)
[2024-09-03] MEDS: cloNIDine HCL 0.2 MG TABLET PO (08:18)
[2024-09-03] MEDS: Gabapentin 600 MG TABLET 300 MG PO (08:18)
[2024-09-03] MEDS: metFORMIN HCl ER 500 MG TAB.ER.24H 1000 MG PO (08:18)
[2024-09-03] MEDS: levETIRAcetam 500 MG TABLET PO (08:18)
[2024-09-03] MEDS: Nicotine 21 MG PATCH.TD24 TRANSDERMA (08:23)
--- NOTE | 2024-09-03 10:32 | MHC.CARE ---
Pt will be a dual dx bedsearch
[2024-09-03 10:55] LABS: Appearance Urine Turbid; Color Urine Yellow; Glucose Urine UA >=1000 mg/dL (Negative); Leukocyte Esterase Urine Negative (Negative); Nitrite Urine Negative (Negative); PH 5.5 (5.0-9.0); Specific Gravity - Urine >= 1.030 (1.005-1.025); UMIC TRIGGER UA YES; Urine Blood Negative (Negative); Urine Ketones 40 mg/dL (Negative); Urine Protein 30 (1+) mg/dL (Neg-Trace)
[2024-09-03 10:57] LABS: Bacteria Urine None Seen (None Seen); RBC Urine 0-2 /HPF (0-2); Squamous Epithelial Cell Urine 0-2 /HPF (0-2); WBC Urine 0-5 /HPF (0-5)
--- NOTE | 2024-09-03 11:04 | MHC.CARE ---
Pt was accepted to [facility] by [facility] for today 09/03/24. The accepting provider is Dr. Curtis and the ETA is 4pm. The address is [address] [place] [address]. The accepting facility does not require a nurse to nurse. Pod RN and CARE team have been notified of placement.
[2024-09-03 13:24] LABS: Glucose, Whole Blood 249 mg/dL (60-115)
[2024-09-03 14:18] VITALS: BP 122/89; PULSE 88; RESP 16; TEMP 36.6; O2SAT 99
== END 2024-09-03 14:20 ==
PROVIDERS: Emergency Provider Emergency Medicine Emergency Medical Services
DX: F10.20 Alcohol dependence, uncomplicated (principal); Y90.7 Blood alcohol level of 200-239 mg/100 ml; R45.851 Suicidal ideations; S50.812A Abrasion of left forearm, initial encounter; W10.8XXA Fall (on) (from) other stairs and steps, initial encounter; M54.50 Low back pain, unspecified; F33.9 Major depressive disorder, recurrent, unspecified; F43.10 Post-traumatic stress disorder, unspecified; F17.210 Nicotine dependence, cigarettes, uncomplicated; Z79.4 Long term (current) use of insulin; Z79.84 Long term (current) use of oral hypoglycemic drugs; Z79.899 Other long term (current) drug therapy; Y93.9 Activity, unspecified; Y92.009 Unspecified place in unspecified non-institutional (private) residence as the place of occurrence of the external cause; Y99.9 Unspecified external cause status; Z23 Encounter for immunization
CPT/HCPCS: 36415; 70450; 72100; 80048; 80307; 81001; 82947; 85025; 90471; 90715; 93005; 96360; 96361; 99285; S9485

== ENCOUNTER → 2024-09-03 10:47 | Outpatient (BNV) | payer MEDICARE, MEDICAID, SELFPAY | PROVIDERS: Emergency Provider Emergency Medicine Emergency Medical Services; Visit Provider Internal Medicine Cardiovascular Disease | DX: R94.31 Abnormal electrocardiogram [ECG] [EKG] (principal) | CPT/HCPCS: 93010 ==

== ENCOUNTER 2025-04-08 21:20 | Emergency (ER) | payer MEDICARE, MEDICAID, SELFPAY ==
[2025-04-08 21:36] VITALS: BP 128/82; PULSE 113; O2SAT 95
[2025-04-08 21:50] VITALS: BMI 27.1
[2025-04-08 22:06] VITALS: BP 106/68; PULSE 76; RESP 18; TEMP 36.8; O2SAT 96
--- NOTE | 2025-04-08 22:24 | ED.PSYCH ---
HPI - Psych General Chief Complaint: Psychiatric Symptoms Stated Complaint: SI w/ plan Time Seen by Provider: 04/08/25 21:24 Source: patient History of Present Illness ED Provider: Amy Elizabeth NP HPI Narrative: Patient is a 40-year-old male who presents emergency department via EMS for evaluation. He is endorsing increasing depression since yesterday as well as increasing anxiety with suicidal ideations plan to cut himself. He admits to alcohol consumption, he states he drank a few beers today, to ?gain the courage to end it?. Used a pocket knife today and made 3 superficial lacerations over his left dorsal forearm without active bleeding and no use of anticoagulants. He admits to a history of alcohol withdrawal, he has a baseline seizure disorder it is unclear whether he has previously experienced seizure during alcohol withdrawal. When asked he states that he typically takes medications for his depression and anxiety morning and night but does state that lately he has not been as compliant as he should be during the day but always takes his medications at night. He denies recreational drug usage. He denies homicidal ideations. Denies hallucinations. Related Data Home Medications ?Medication ?Instructions ?Recorded ?Confirmed hydroxyzine HCl 25 mg tablet 50 mg PO Q8H PRN Anxiety 08/18/24 04/08/25 insulin glargine 100 unit/mL 50 unit subcut BEDTIME 08/18/24 04/08/25 subcutaneous solution (Lantus U-100 Insulin) insulin lispro 100 unit/mL See Protocol subcut 08/18/24 04/08/25 subcutaneous pen (Humalog KwikPen TIDWM@0800,1200,1700 (U-100) Insulin) melatonin 10 mg tablet 10 mg PO BEDTIME PRN Insomnia 08/18/24 04/08/25 nicotine 21 mg/24 hr daily 1 patch transdermal DAILY 08/18/24 04/08/25 transdermal patch gabapentin 600 mg tablet 300 mg PO TID 09/03/24 04/08/25 Previous Rx's ?Medication ?Instructions ?Recorded metformin 500 mg tablet,extended 1,000 mg (2 x 500 mg) PO BIDWM 07/06/24 release 24 hr #120 tabs clonidine HCl 0.2 mg tablet 0.2 mg PO BID 30 days #60 tabs 08/26/24 fluoxetine 60 mg tablet 60 mg PO DAILY 30 days #30 tabs 08/26/24 levetiracetam 500 mg tablet 500 mg PO BID 30 days #60 tabs 08/26/24 quetiapine 200 mg tablet 200 mg PO DAILY 30 days #30 tabs 08/26/24 quetiapine 400 mg tablet 400 mg PO BEDTIME 30 days #30 tabs 08/26/24 trazodone 100 mg tablet 200 mg (2 x 100 mg) PO BEDTIME PRN 08/26/24 insomnia 30 days #60 tabs Allergies Allergy/AdvReac Type Severity Reaction Status Date / Time seafood Allergy Anaphylaxis Verified 04/08/25 21:57 Review of Systems Review of Systems: Yes all other systems are reviewed and are negative PMFSH Past Medical History Attestation statement: The following information was validated with the patient. Source: old records reviewed Medical History Hyperglycemia Recurrent major depression PTSD (post-traumatic stress disorder) Alcohol use disorder, severe, dependence Diabetes mellitus, type 2 Social History Social History Household Members: Family Housing: Apartment Do you presently have visiting nurse or other home services: No Alcohol intake: current Alcohol intake frequency: 0-2 drinks per day Alcohol type: beer and hard liquor Patient Tobacco Use Status: Current everyday Tobacco user Tobacco use type: Cigarette Cigarette Packs Per Day: 0.5 Cigarettes Per Day: 10.0 Smoked in Last 30 Days: No e-Cigarette/Vaping Use: Currently Using Second Hand Smoke Exposure: No Use of substances other than those prescribed or required for medical reasons: Yes Substance Use Type: Marijuana Advance Directives: No Advance Directives Information Provided: No Do you have a plan to hurt others: No Plan service: No Sexual orientation: Straight/Heterosexual Physical Exam Vital Signs: Vital Signs: Last Vital Signs Temp 97.9 F 04/09/25 14:37 Pulse 89 04/09/25 14:37 Resp 12 04/09/25 14:37 BP 119/80 04/09/25 14:37 Pulse Ox 95 04/09/25 14:37 O2 Del Method Room Air 04/09/25 14:37 BMI result Body Mass Index 27.1 Appearance: Alert.?Oriented to person, place and time. No acute distress.?Normal affect. Eyes: Pupils equal, round and reactive to light.? ENT: Pharynx normal.?? Neck: Normal inspection.? Neck supple.?? CVS: Heart sounds normal. Normal heart rate and rhythm.? Pulses normal.?? Respiratory: No respiratory distress.? Lung sounds clear to auscultation bilaterally?? Abdomen: Soft and non-tender. Normoactive bowel sounds. Skin: Skin warm and dry.? Normal skin color.? Extremities: No lower extremity edema.? Neuro: Moves all extremities spontaneously. Sensation intact bilaterally. CN II-XII intact. No focal neuro deficits. Ambulates with normal steady gait. Course Reevaluation(s) Reevaluation #1: Time: 09:45 Date: 04/09/25 Provider: Fidel Swenson, DO Patient in physician observation for psychiatric evaluation.? . VS stable.? Patient is in bed search status. Will continue to monitor. Medications Administered Generic Name Dose Route Start Last Admin Trade Name Freq PRN Reason Stop Dose Admin Clonidine HCl 0.2 mg 04/09/25 00:30 04/09/25 09:55 Clonidine Hcl 0.2 Mg Tablet PO 0.2 mg BID DREW Administration Protocol Fluoxetine HCl 60 mg 04/09/25 09:00 04/09/25 09:54 Fluoxetine Hcl 20 Mg Capsule PO 60 mg DAILY DREW Administration Gabapentin 300 mg 04/09/25 00:30 04/09/25 14:41 Gabapentin 600 Mg Tablet PO 300 mg TID DREW Administration Insulin Glargine 50 unit 04/09/25 00:30 04/09/25 00:54 Insulin Glargine,Hum.Rec.Anlog 100 Unit/Ml 10 Ml Vial SUBCUT 50 unit BEDTIME DREW Administration Insulin Human Lispro 0 unit 04/09/25 08:00 04/09/25 14:42 Insulin Lispro 100 Unit/Ml 3 Ml Vial SUBCUT 2 unit TIDWM@0800,1200,1700 DREW Administration Protocol Levetiracetam 500 mg 04/09/25 00:30 04/09/25 09:56 Levetiracetam 500 Mg Tablet PO 500 mg BID DREW Administration Metformin HCl 1,000 mg 04/09/25 08:00 04/09/25 09:54 Metformin Hcl Er 500 Mg Tab.Er.24h PO 1,000 mg BIDWM DREW Administration Nicotine 21 mg 04/09/25 09:00 04/09/25 09:56 Nicotine 21 Mg Patch.Td24 TRANSDERMA 21 mg DAILY DREW Administration Quetiapine Fumarate 200 mg 04/09/25 09:00 04/09/25 09:54 Quetiapine Fumarate 200 Mg Tablet PO 200 mg DAILY DREW Administration Quetiapine Fumarate 400 mg 04/09/25 00:30 04/09/25 00:53 Quetiapine Fumarate 400 Mg Tablet PO 400 mg BEDTIME DREW Administration Trazodone HCl 200 mg 04/09/25 00:28 04/09/25 00:53 Trazodone Hcl 100 Mg Tablet PO 200 mg BEDTIME PRN Administration insomnia Discontinued Medications Generic Name Dose Route Start Last Admin Trade Name Freq PRN Reason Stop Dose Admin Bacitracin 1 appl 04/08/25 22:36 04/09/25 01:29 Bacitracin Oint 0.9 Gm Packet TOPICAL 04/08/25 22:37 Not Given ONCE ONE Protocol Diazepam 10 mg 04/09/25 09:43 04/09/25 09:56 Diazepam 5 Mg Tablet PO 04/09/25 09:44 10 mg ONCE ONE Administration Lorazepam 1 mg 04/09/25 06:28 04/09/25 06:35 Lorazepam 1 Mg Tablet PO 04/09/25 06:29 1 mg ONCE ONE Administration Medical Decision Making Medical Decision Making [facility] Narrative: Patient is a 40-year-old male with past medical history of insulin-dependent type 2 diabetes, seizure disorder, alcohol use disorder, GERD, depression, anxiety who presents emergency department for evaluation of suicidal ideations with a plan to cut self as per HPI. He made 3 superficial linear lacerations over the left forearm with a pocket knife today which were cleansed with saline, superficial in nature not amenable to suture repair bacitracin was applied and a bandage was covered. Reports tetanus vaccination up-to-date within the past 5 years. He is calm and cooperative. He offers no physical complaints at this time his examination is otherwise benign. Plan to obtain serum labs for medical clearance and will consult with care team for safe disposition planning. Date: 04/09/25 Provider: Fidel Swenson DO Physician observation ended at 4 pm. Patient has been cleared for discharge by the CARE team. Accepted to [facility] Differential Diagnosis Differential Diagnoses: The differential diagnosis associated with the presentation includes (See narrative above and below for further detail) Admission/Observation Consideration of admission/observation: Escalation of care including admission/observation considered Patient is being observed in the Emergency Department for depression and suicidal ideation. Observation time was started at 22:53 on 04/08/2025.?The patient is currently stable and non-toxic appearing. Observation is being initiated in the Emergency Department to allow time to help differentiate if the patient's depression and suicidal ideation is due to Substance Induced Mood Disorder and Anxiety versus Major Depressive Disorder, Bipolar Arabella, Bipolar Depression, and Schizophrenia. The patient will receive frequent psychiatric assessments from the provider as well as from nursing staff. The patient will also be monitored for the need of PRN agitation medications such as Haldol, Ativan, and Benadryl. Consult Healthcare Provider Management of the patient was discussed with: Behavioral Health Provider (CARE team) Lab Data MDM Lab Attestation statement: I reviewed the patient's lab results. CBC is without leukocytosis significant anemia or thrombocytopenia. No electrolyte derangement. No SHAHID. Non-anion gap hyperglycemia with a glucose of 241. Overall unremarkable LFTs. Urinalysis without evidence of infection or microscopic hematuria. Toxicology positive for marijuana. Alcohol level of 170. 04/08/25 23:51 04/08/25 23:51 Labs: Lab Results 04/08/25 04/09/25 04/09/25 Range/Units 23:51 09:24 13:02 WBC 9.5 (4.8-10.8) X10*3/uL RBC 5.41 (4.60-5.80) X10*6/uL Hgb 14.2 (14.0-18.0) g/dl Hct 41.2 L (42.0-52.0) % MCV 76.2 L (80.0-98.0) fL MCH 26.2 L (27.0-33.0) pg MCHC 34.5 (31.0-36.0) g/dl RDW 15.0 (11.0-16.0) % Plt Count 267 (160-400) X10*3/uL MPV 8.9 L (9.4-12.4) fL Immature Gran % (Auto) 0.3 (0.0-0.4) % Neut % (Auto) 47.7 (45-73) % Lymph % (Auto) 42.8 H (20-40) % [place] % (Auto) 7.8 (2-11) % Eos % (Auto) 0.7 (0-4) % Baso % (Auto) 0.7 (0-2) % Lymph # (Auto) 4.1 (1.2-4.9) X10*3/uL [place] # (Auto) 0.7 (0.1-1.2) X10*3/uL Eos # (Auto) 0.1 (0.0-0.4) X10*3/uL Baso # (Auto) 0.1 (0.0-0.2) X10*3/uL Abs Immat Gran (auto) 0.03 (0.00-0.03) X10*3/uL Absolute Neuts (auto) 4.5 (2.0-8.3) x10*3/uL Absolute Nucleated RBC 0.000 (0.0-0.012) X10*3/uL Nucleated RBC % (auto) 0.0 (0.0-0.2) /100WBC Sodium 136 (135-145) mmol/L Potassium 3.5 (3.3-5.1) mmol/L Chloride 103 (96-108) mmol/L Carbon Dioxide 22 (22-29) mmol/L Anion Gap 15 (12-20) BUN 3 L (9-16) mg/dL Creatinine 0.69 (0.5-1.4) mg/dL Estim Creat Clear Calc 159.3 Estimated GFR > 60 POC Glucose 215 H 163 H (60-115) mg/dL Random Glucose 241 H (60-115) mg/dL Calcium 8.4 D (8.4-10.2) mg/dL Magnesium 1.9 (1.6-2.6) mg/dL Total Bilirubin 0.4 (0.0-1.0) mg/dL AST 37 (5-37) U/L ALT 44 H (0-40) U/L Alkaline Phosphatase 104 (39-117) U/L Total Protein 7.2 (6.5-8.0) g/dL Albumin 4.2 (3.5-5.0) g/dL Urine Color Yellow Urine Appearance Clear Urine pH 6.0 (5.0-9.0) Ur Specific [place] <= 1.005 (1.005-1.025) Urine Protein Negative (Neg-Trace) mg/dL Urine Glucose (UA) 500 H (Negative) mg/dL Urine Ketones Negative (Negative) mg/dL Urine Blood Negative (Negative) Urine Nitrite Negative (Negative) Ur Leukocyte Esterase Negative (Negative) Urine Opiates Screen Not Detected (Not Detect) Ur Buprenorphine Scrn Not Detected (Not Detect) ng/mL Ur Oxycodone Screen Not Detected (Not Detect) ng/mL Urine Methadone Screen Not Detected (Not Detect) ng/mL Urine Fentanyl Screen Not Detected (Not Detect) Ur Barbiturates Screen Not Detected (Not Detect) Ur Phencyclidine Scrn Not Detected (Not Detect) Ur Amphetamines Screen Not Detected (Not Detect) U Benzodiazepines Scrn Not Detected (Not Detect) Urine Cocaine Screen Not Detected (Not Detect) U Marijuana (THC) Screen POSITIVE H (Not Detect) Ethyl Alcohol 170 mg/dL External Record Review External record reviewed: Outpatient record Chronic Conditions Patient?s care impacted by: Other (See narrative above) Social Determinants Patient?s care significantly limited by Social Determinants of Health including: Alcoholism and drug addiction in family Discharge Plan Discharge Clinical Impression: Alcohol use disorder, severe, dependence, Suicidal ideation, PTSD (post-traumatic stress disorder) Patient Disposition: Xfer Other Transfer Details: [facility] Additional Instructions: Evaluated in the emergency department, suicidal ideations, depression anxiety, superficial cuts to left arm, keep these clean dry, bacitracin ointment can be applied, the rest of the blood work has been reassuring, medical cleared Prescriptions: No Action metformin 500 mg Tablet Extended Release 24 Hr 1,000 mg PO BIDWM Qty: 120 0RF hydroxyzine HCl 25 mg tablet 50 mg PO Q8H PRN (Reason: Anxiety) nicotine 21 mg/24 hr Patch 24 Hour 1 patch TRANSDERMAL DAILY melatonin 10 mg Tablet 10 mg PO BEDTIME PRN (Reason: Insomnia) insulin glargine [Lantus U-100 Insulin] 100 unit/mL solution 50 unit subcut BEDTIME insulin lispro [Humalog KwikPen Insulin] 100 unit/mL insulin pen See Protocol subcut TIDWM@0800,1200,1700 Protocol: Insulin Correction Scale Less than or equal to 110 ---- Give (units): 0 111 to 150 Give (units): 0 151 to 200 Give (units): 2 201 to 250 Give (units): 4 251 to 300 Give (units): 6 301 to 350 Give (units): 8 Greater than 350 Give (units): 10 Call MD if Blood Glucose > : 350 fluoxetine 60 mg tablet 60 mg PO DAILY 30 Days Qty: 30 0RF levetiracetam 500 mg Tablet 500 mg PO BID 30 Days Qty: 60 0RF quetiapine 200 mg tablet 200 mg PO DAILY 30 Days Qty: 30 0RF clonidine HCl 0.2 mg tablet 0.2 mg PO BID 30 Days Qty: 60 0RF trazodone 100 mg tablet 200 mg PO BEDTIME PRN (Reason: insomnia) 30 Days Qty: 60 0RF quetiapine 400 mg tablet 400 mg PO BEDTIME 30 Days Qty: 30 0RF gabapentin 600 mg tablet 300 mg PO TID Interventions: [place]-Suicide Risk Severity Scale Last Done: 04/08/25 21:58 Print Language: [place]
--- NOTE | 2025-04-08 22:54 | ECG_ITS ---
Test Reason : CHECK QT Blood Pressure : */* mmHG Vent. Rate : 91 BPM Atrial Rate : 91 BPM P-R Int : 162 ms QRS Dur : 92 ms QT Int : 396 ms P-R-T Axes : 59 5 25 degrees QTcB Int : 487 ms Normal sinus rhythm Septal infarct (cited on or before 03-Sep-2024) Abnormal ECG When compared with ECG of 03-Sep-2024 10:47, Nonspecific T wave abnormality now evident in Lateral leads Referred By: Amy Elizabeth Electronically Signed By: LA MCKOY MD
[2025-04-08 23:58] LABS: MANUAL DIFF FLAG NO
[2025-04-09] LABS: Basophils Absolute Auto 0.1 X10*3/uL (0.0-0.2); Basophils Percent Auto 0.7 % (0-2); Eosinophils Absolute Auto 0.1 X10*3/uL (0.0-0.4); Eosinophils Percent Auto 0.7 % (0-4); Hematocrit 41.2 % (42.0-52.0); Hemoglobin 14.2 g/dl (14.0-18.0); Imm Gran Abs Auto 0.03 X10*3/uL (0.00-0.03); Imm Gran Pct Auto 0.3 % (0.0-0.4); Lymphocytes Absolute Auto 4.1 X10*3/uL (1.2-4.9); Lymphocytes Percent Auto 42.8 % (20-40); Mean Corpuscular HGB Conc 34.5 g/dl (31.0-36.0); Mean Corpuscular Hemoglobin 26.2 pg (27.0-33.0); Mean Corpuscular Volume 76.2 fL (80.0-98.0); Mean Platelet Volume 8.9 fL (9.4-12.4); Monocytes Absolute Auto 0.7 X10*3/uL (0.1-1.2); Monocytes Percent Auto 7.8 % (2-11); Neutrophils Absolute Auto 4.5 x10*3/uL (2.0-8.3); Neutrophils Percent Auto 47.7 % (45-73); Platelet Count 267 X10*3/uL (160-400); Red Blood Count 5.41 X10*6/uL (4.60-5.80); White Blood Count 9.5 X10*3/uL (4.8-10.8)
[2025-04-09 00:03] LABS: Appearance Urine Clear; Color Urine Yellow; Glucose Urine UA 500 mg/dL (Negative); Leukocyte Esterase Urine Negative (Negative); Nitrite Urine Negative (Negative); Specific Gravity - Urine <= 1.005 (1.005-1.025); Urine Blood Negative (Negative); Urine Ketones Negative (Negative); Urine Protein Negative (Neg-Trace)
--- NOTE | 2025-04-09 00:08 | PC.NURSE ---
after transition to unit t/w asked to assess wound that was actively bleeding and dripping onto furniture provider spoken to via [facility]
[2025-04-09 00:14] LABS: Amphetamine Screen Urine Not Detected (Not Detect); Barbiturates, Urine Not Detected (Not Detect); Benzodiazepines Screen Urine Not Detected (Not Detect); Buprenorphine Scr Not Detected (Not Detect); Cannabinoid Screen Urine POSITIVE (Not Detect); Cocaine Screen Urine Not Detected (Not Detect); Fentanyl, urine Not Detected (Not Detect); Methadone Screen, Urine Not Detected (Not Detect); Opiate Screen Urine Not Detected (Not Detect); Oxycodone Screen Urine Not Detected (Not Detect); Phencyclidine Screen Urine Not Detected (Not Detect)
[2025-04-09 00:16] LABS: Alanine Aminotransferase 44 U/L (0-40); Albumin Level 4.2 g/dL (3.5-5.0); Alkaline Phosphatase 104 U/L (39-117); Anion Gap 15 (12-20); Aspartate Amino Transferase 37 U/L (5-37); Bilirubin Total 0.4 mg/dL (0.0-1.0); Blood Urea Nitrogen 3 mg/dL (9-16); Calcium 8.4 mg/dL (8.4-10.2); Carbon Dioxide 22 mmol/L (22-29); Chloride 103 mmol/L (96-108); Creatinine Clr Calc Pharmacy 159.3; Estimated Glomerular Filt Rate > 60; Ethanol 170 mg/dL; Glucose Random 241 mg/dL (60-115); Magnesium 1.9 mg/dL (1.6-2.6); Potassium 3.5 mmol/L (3.3-5.1); Sodium 136 mmol/L (135-145); Total Protein 7.2 g/dL (6.5-8.0)
[2025-04-09 00:52] VITALS: BP 106/68
[2025-04-09] MEDS: Gabapentin 600 MG TABLET 300 MG PO ×3 (00:52→14:41)
[2025-04-09] MEDS: cloNIDine HCL 0.2 MG TABLET PO ×2 (00:52→09:55)
[2025-04-09] MEDS: traZODone HCL 100 MG TABLET 200 MG PO (00:53)
[2025-04-09] MEDS: levETIRAcetam 500 MG TABLET PO ×2 (00:53→09:56)
[2025-04-09] MEDS: QUEtiapine Fumarate 400 MG TABLET PO (00:53)
[2025-04-09] MEDS: Insulin Glargine,Hum.rec.anlog 100 UNIT/ML 10 ML VIAL 50 UNIT SUBCUT (00:54)
[2025-04-09 05:41] VITALS: BP 136/80; PULSE 112; RESP 18; TEMP 36.7; O2SAT 96
--- NOTE | 2025-04-09 06:25 | PC.NURSE ---
requested [facility] agent for etoh wd
[2025-04-09] MEDS: LORazepam 1 MG TABLET PO (06:35)
[2025-04-09 09:26] LABS: Glucose, Whole Blood 215 mg/dL (60-115)
[2025-04-09 09:38] VITALS: BP 150/95; PULSE 103; RESP 16; TEMP 36.8; O2SAT 96
--- NOTE | 2025-04-09 09:45 | MHC.CARE ---
Pt will be a Dual DX bedsearch
[2025-04-09] MEDS: FLUoxetine HCl 20 MG CAPSULE 60 MG PO (09:54)
[2025-04-09] MEDS: QUEtiapine Fumarate 200 MG TABLET PO (09:54)
[2025-04-09] MEDS: metFORMIN HCl ER 500 MG TAB.ER.24H 1000 MG PO (09:54)
[2025-04-09 09:55] VITALS: BP 150/95
[2025-04-09] MEDS: Nicotine 21 MG PATCH.TD24 TRANSDERMA (09:56)
[2025-04-09] MEDS: diazePAM 5 MG TABLET 10 MG PO (09:56)
[2025-04-09] MEDS: Insulin Lispro 100 UNIT/ML 3 ML VIAL SUBCUT ×2 (09:56→14:42)
--- NOTE | 2025-04-09 11:33 | MHC.CARE ---
Pt was accepted to [facility] by [facility] for today 04/09/25. The accepting doctor is Dr. Morales and the ETA is TBJanis. The address is [address] [place] [address]. No nurse to nurse is required by the accepting facility. Pod RN and CARE team have been notified of placement.
[2025-04-09 13:06] LABS: Glucose, Whole Blood 163 mg/dL (60-115)
[2025-04-09 14:37] VITALS: BP 119/80; PULSE 89; RESP 12; TEMP 36.6; O2SAT 95
--- NOTE | 2025-04-09 14:45 | PC.NURSE ---
Patient up eating lunch on side of bed, awaiting transfer to [facility]
[2025-04-09 16:48] VITALS: BP 119/80; PULSE 89; RESP 12; TEMP 36.6; O2SAT 95
== END 2025-04-09 16:50 | disposition other institution (70) ==
PROVIDERS: Nurse Practitioner Family; Emergency Provider Emergency Medicine
DX: S51.812A Laceration without foreign body of left forearm, initial encounter (principal); F33.1 Major depressive disorder, recurrent, moderate; R45.851 Suicidal ideations; F41.9 Anxiety disorder, unspecified; E11.9 Type 2 diabetes mellitus without complications; R94.31 Abnormal electrocardiogram [ECG] [EKG]; X78.1XXA Intentional self-harm by knife, initial encounter; Y93.9 Activity, unspecified; Y92.9 Unspecified place or not applicable; Y99.8 Other external cause status; Z79.4 Long term (current) use of insulin; Z79.899 Other long term (current) drug therapy; Z51.81 Encounter for therapeutic drug level monitoring
CPT/HCPCS: 36415; 80053; 80307; 81003; 82947; 83735; 85025; 93005; 99285; S9485

== ENCOUNTER → 2025-04-08 22:54 | Outpatient (BNV) | payer MEDICARE, MEDICAID, SELFPAY | PROVIDERS: Emergency Provider Emergency Medicine; Visit Provider Internal Medicine Cardiovascular Disease | DX: I25.2 Old myocardial infarction (principal) | CPT/HCPCS: 93010 ==